=== PATIENT | male | born 1935 | race Caucasian/White ===

== ENCOUNTER 2017-08-01 16:48 | Emergency (ER) | payer OTHER ==
--- NOTE | 2017-08-01 16:54 | EDM.PDOC ---
ED HPI GENERAL MEDICAL PROBLEM - General Chief Complaint: General Stated Complaint: Fevers; cough; weakness Time Seen by Provider: 08/01/17 16:52 Source of Information: Reports: Patient, EMS Notes Reviewed, Family, RN, RN Notes Reviewed History Limitations: Reports: No Limitations - History of Present Illness INITIAL COMMENTS - FREE TEXT/NARRATIVE: Patient is brought to the ED at [facility] via EMS for fevers, weakness, and cough. Patient states his symptoms started a couple days ago. He did not want to come to the ED, but his family insisted. He states he has chronic SOB and UE tremors. He does not use a walker or cane. He states he is usually steady on his feet when he is well. He states he fall and hit his head a couple of weeks ago. He was not seen for this. He states his neck started to hurt a couple of hours ago. He has had a poor appetite for the past couple of days. He is incontinent of urine. Denies issues with BM's. He has not been drinking much. Patient denies any chest pain. Patient is normally seen at the [facility]. Will obtained records. Onset Date: 07/30/17 - Related Data Allergies Allergy/AdvReac Type Severity Reaction Status Date / Time No Known Allergies Allergy Verified 08/01/17 17:40 Home Meds: Home Meds Levothyroxine Sodium [Levoxyl] 0.5 tab PO DAILY 08/01/17 [History] Montelukast Sodium 10 mg PO DAILY 08/01/17 [History] Primidone 50 mg PO QID 08/01/17 [History] Propranolol HCl [Inderal LA] 60 mg PO DAILY 08/01/17 [History] Simvastatin 40 mg PO DAILY 08/01/17 [History] Topiramate 25 mg PO BID 08/01/17 [History] Warfarin Sodium 7.5 mg PO ASDIRECTED 08/01/17 [History] Warfarin [Coumadin] 10 mg PO ASDIRECTED 08/01/17 [History] glipiZIDE [Glucotrol] 10 mg PO BID 08/01/17 [History] metFORMIN HCl [Metformin HCl] 1,000 mg PO BID 08/01/17 [History] ED ROS GENERAL - Review of Systems Review Of Systems: See Below Constitutional: Reports: Fever, Weakness, Decreased Appetite. Denies: Chills HEENT: Reports: No Symptoms Respiratory: Reports: Shortness of Breath (chronic), Cough. Denies: Wheezing Cardiovascular: Denies: Chest Pain, Palpitations GI/Abdominal: Denies: Abdominal Pain, Nausea, Vomiting Musculoskeletal: Reports: Neck Pain Skin: Reports: No Symptoms Neurological: Reports: No Symptoms. Denies: Dizziness, Headache ED EXAM, GENERAL - Physical Exam Exam: See Below Exam Limited By: No Limitations General Appearance: Alert, No Apparent Distress, Cachetic Head: Atraumatic, Normocephalic Neck: Supple, Non-Tender Respiratory/Chest: No Respiratory Distress, Lungs Clear, Decreased Breath Sounds Cardiovascular: Normal Peripheral Pulses, Regular Rate, Rhythm Peripheral Pulses: 2+: Radial (L), Radial (R) GI/Abdominal: Soft, Non-Tender, Abnormal Bowel Sounds (Hypoactive) Neurological: Alert Skin Exam: Warm, Dry, Intact EKG INTERPRETATION EKG Date: 08/01/17 Time: 17:09 Rhythm: Other Rate (Beats/Min): 114 [place]: LAD-Left [place] Deviation P-Wave: Present QRS: Normal ST-T: Normal QT: Normal WA/PQ Interval: 0.18 Comparison: NA - No Prior EKG EKG Interpretation Comments: 1. Sinus Tachycardia 2. Borderline Left [place] deviation 3. Nonspecific T-wave abnormality Course - Vital Signs Last Recorded V/S: Last Vital Signs Temp 38.1 C 08/01/17 18:45 Pulse 110 H 08/01/17 19:00 Resp 16 08/01/17 19:00 BP 151/75 H 08/01/17 19:00 Pulse Ox 90 L 08/01/17 19:00 - Orders/Labs/Meds Orders: Active Orders 24 hr Category Date Time Status EKG 12 Lead [EKG Documentation Completion] [RC] STAT Care 08/01/17 16:55 Active Chest 1V Frontal [CR] Stat Exams 08/01/17 16:52 Taken CULTURE BLOOD [BC] Stat Lab 08/01/17 17:20 Received CULTURE BLOOD [BC] Stat Lab 08/01/17 17:26 Received UA W/MICROSCOPIC [URIN] Stat Lab 08/01/17 18:19 Ordered Lactated Ringers [Ringers, Lactated] 1,000 ml Med 08/01/17 18:34 Active IV ONETIME Sodium Chloride 0.9% [Saline Flush] Med 08/01/17 16:55 Active 10 ml FLUSH ASDIRECTED PRN Blood Culture x2 Reflex Set [OM.PC] Stat Oth 08/01/17 16:55 Ordered Peripheral IV Insertion Adult [OM.PC] Routine Oth 08/01/17 16:55 Ordered Medication Orders Lactated Ringer's (Ringers, Lactated) 1,000 mls @ 999 mls/hr IV ONETIME ONE Stop: 08/01/17 19:34 Last Admin: 08/01/17 18:41 Dose: 999 mls/hr Sodium Chloride (Saline Flush) 10 ml FLUSH ASDIRECTED PRN PRN Reason: Keep Vein Open Labs: Laboratory Tests 08/01/17 08/01/17 08/01/17 Range/Units 17:20 17:20 17:20 WBC 15.0 H (4.0-10.0) x10^3/uL RBC 4.86 (4.5-6.0) x10^6/uL Hgb 15.6 (14.0-18.0) g/dL Hct 46.8 (40.0-52.0) % MCV 96.3 H (78.0-93.0) fL MCH 32.1 H (26.0-32.0) pg MCHC 33.3 (32.0-36.0) g/dL RDW Coeff of Erik 15.0 (10.0-15.0) % Plt Count 324 (130-400) x10^3/uL Add Manual Diff Yes Neutrophils % (Manual) 60 (50-80) % Band Neutrophils % 5 (0-6) % Lymphocytes % (Manual) 22 L (25-50) % Monocytes % (Manual) 12 H (2-11) % Blast Cells % 1 H (0) % Platelet Estimate Adequate Sodium 133 L (136-145) mmol/L Potassium 4.3 (3.5-5.1) mmol/L Chloride 99 (98-107) mmol/L Carbon Dioxide 26 (21-32) mmol/L Anion Gap 12.3 BUN 17 (7-18) mg/dL Creatinine 1.4 H (0.70-1.30) mg/dL Est Cr Clr Drug Dosing TNP Estimated GFR (MDRD) 49 Glucose 155 H (74-106) mg/dL Lactic Acid 2.4 H* (0.4-2.0) mmol/L Calcium 8.9 (8.5-10.1) mg/dL Corrected Calcium 9.94 (8.5-10.1) mg/dL Magnesium 1.6 L (1.8-2.4) mg/dL Total Bilirubin 0.6 (0.2-1.0) mg/dL AST 24 (15-37) U/L ALT 29 (16-63) U/L Alkaline Phosphatase 151 H (46-116) U/L C-Reactive Protein 23.4 H (<=0.9) mg/dL Total Protein 7.7 (6.4-8.2) g/dL Albumin 2.7 L (3.4-5.0) g/dL Globulin 5.0 Albumin/Globulin Ratio 0.54 Urine Color (YELLOW) Urine Appearance (CLEAR) Urine pH (5.0-8.0) Ur Specific [place] Urine Protein (NEGATIVE) mg/dL Urine Glucose (UA) (NEGATIVE) mg/dL Urine Ketones (NEGATIVE) mg/dL Urine Occult Blood (NEGATIVE) Urine Nitrite (NEGATIVE) Urine Bilirubin (NEGATIVE) Urine Urobilinogen (0.2) EU/dL Ur Leukocyte Esterase (NEGATIVE) Urine RBC (NOT SEEN) /HPF Urine WBC (NOT SEEN) /HPF Ur Squamous Epith Cells (NEGATIVE) /HPF Amorphous Sediment Urine Bacteria (NEGATIVE) /HPF Hyaline Casts (NEGATIVE) /HPF Urine Mucus (NEGATIVE) /LPF 08/01/17 Range/Units 18:19 WBC (4.0-10.0) x10^3/uL RBC (4.5-6.0) x10^6/uL Hgb (14.0-18.0) g/dL Hct (40.0-52.0) % MCV (78.0-93.0) fL MCH (26.0-32.0) pg MCHC (32.0-36.0) g/dL RDW Coeff of Erik (10.0-15.0) % Plt Count (130-400) x10^3/uL Add Manual Diff Neutrophils % (Manual) (50-80) % Band Neutrophils % (0-6) % Lymphocytes % (Manual) (25-50) % Monocytes % (Manual) (2-11) % Blast Cells % (0) % Platelet Estimate Sodium (136-145) mmol/L Potassium (3.5-5.1) mmol/L Chloride (98-107) mmol/L Carbon Dioxide (21-32) mmol/L Anion Gap BUN (7-18) mg/dL Creatinine (0.70-1.30) mg/dL Est Cr Clr Drug Dosing Estimated GFR (MDRD) Glucose (74-106) mg/dL Lactic Acid (0.4-2.0) mmol/L Calcium (8.5-10.1) mg/dL Corrected Calcium (8.5-10.1) mg/dL Magnesium (1.8-2.4) mg/dL Total Bilirubin (0.2-1.0) mg/dL AST (15-37) U/L ALT (16-63) U/L Alkaline Phosphatase (46-116) U/L C-Reactive Protein (<=0.9) mg/dL Total Protein (6.4-8.2) g/dL Albumin (3.4-5.0) g/dL Globulin Albumin/Globulin Ratio Urine Color Dark yellow H (YELLOW) Urine Appearance Cloudy H (CLEAR) Urine pH 5.0 (5.0-8.0) Ur Specific [place] 1.020 Urine Protein 30 H (NEGATIVE) mg/dL Urine Glucose (UA) Negative (NEGATIVE) mg/dL Urine Ketones 15 H (NEGATIVE) mg/dL Urine Occult Blood Negative (NEGATIVE) Urine Nitrite Negative (NEGATIVE) Urine Bilirubin Small H (NEGATIVE) Urine Urobilinogen 0.2 (0.2) EU/dL Ur Leukocyte Esterase Negative (NEGATIVE) Urine RBC 0-5 (NOT SEEN) /HPF Urine WBC 0-5 (NOT SEEN) /HPF Ur Squamous Epith Cells Not seen (NEGATIVE) /HPF Amorphous Sediment Few Urine Bacteria Few H (NEGATIVE) /HPF Hyaline Casts Few H (NEGATIVE) /HPF Urine Mucus Many H (NEGATIVE) /LPF Meds: Medications Generic Name Dose Route Start Last Admin Trade Name Freq PRN Reason Stop Dose Admin Lactated Ringer's 1,000 mls @ 999 mls/hr 08/01/17 18:34 08/01/17 18:41 Ringers, Lactated IV 08/01/17 19:34 999 mls/hr ONETIME ONE Administration Sodium Chloride 10 ml 08/01/17 16:55 Saline Flush FLUSH ASDIRECTED PRN Keep Vein Open Discontinued Medications Generic Name Dose Route Start Last Admin Trade Name Vivian PRN Reason Stop Dose Admin Ceftriaxone Sodium 1 gm 08/01/17 18:33 08/01/17 18:41 Rocephin IVPUSH 08/01/17 18:34 1 gm ONETIME ONE Administration - Radiology Interpretation Free Text/Narrative:: CXR: No acute process - see scanned report in EMR - Re-Assessments/Exams Free Text/Narrative Re-Assessment/Exam: 08/01/17 18:36 Contacted [facility] regarding patient transfer. [place] Provider states he will have the 7pm provider call us back to get report on this patient Free Text/Narrative Re-Assessment/Exam: 08/01/17 19:19 Awaiting call back from [facility] Departure - Departure Time of Disposition: 19:28 Disposition: DC/Tfer to [facility] 02 Condition: Good Clinical Impression: Sepsis Qualifiers: Sepsis type: sepsis due to unspecified organism Qualified Code(s): A41.9 - Sepsis, unspecified organism - Discharge Information Forms: Interfacility Transfer [facility] ED Communication - ED Communication Date/Time Date: 08/01/17 Time Called: 19:27 - Discussed Case With (1) Discussed Case With (1): Admitting Provider (Dr. Lopez, Hospitalist, [facility]. Report given. Questions answered. Patient accepted in transfer. Patient will be sent via ALS ground.) - Problem List Review Problem List Initiated/Reviewed/Updated: Yes - My Orders Last 24 Hours: My Active Orders 08/01/17 16:52 Chest 1V Frontal [CR] Stat 08/01/17 16:55 EKG 12 Lead [EKG Documentation Completion] [RC] STAT Sodium Chloride 0.9% [Saline Flush] 10 ml FLUSH ASDIRECTED PRN Blood Culture x2 Reflex Set [OM.PC] Stat Peripheral IV Insertion Adult [OM.PC] Routine 08/01/17 17:20 CULTURE BLOOD [BC] Stat 08/01/17 17:26 CULTURE BLOOD [BC] Stat 08/01/17 18:19 UA W/MICROSCOPIC [URIN] Stat 08/01/17 18:34 Lactated Ringers [Ringers, Lactated] 1,000 ml IV ONETIME - Assessment/Plan Last 24 Hours: My Active Orders 08/01/17 16:52 Chest 1V Frontal [CR] Stat 08/01/17 16:55 EKG 12 Lead [EKG Documentation Completion] [RC] STAT Sodium Chloride 0.9% [Saline Flush] 10 ml FLUSH ASDIRECTED PRN Blood Culture x2 Reflex Set [OM.PC] Stat Peripheral IV Insertion Adult [OM.PC] Routine 08/01/17 17:20 CULTURE BLOOD [BC] Stat 08/01/17 17:26 CULTURE BLOOD [BC] Stat 08/01/17 18:19 UA W/MICROSCOPIC [URIN] Stat 08/01/17 18:34 Lactated Ringers [Ringers, Lactated] 1,000 ml IV ONETIME
[2017-08-01] MEDS ORDERED: Sodium Chloride 0.9% 10 ML Syringe FLUSH PRN (16:55)
[2017-08-01 18:00] LABS: CHLORIDE,CL 99 mmol/L (98-107); SODIUM,NA 133 mmol/L (136-145)
[2017-08-01] MEDS: cefTRIAXone 1 GM Vial IVPUSH ONE (18:41)
[2017-08-01] MEDS: Lactated Ringers 1,000 ML IV ONE (18:41)
[2017-08-01] MEDS: Sodium Chloride 0.9% 1,000 ML IV SCH (19:39)
== END 2017-08-01 19:57 | disposition short-term general hospital (02) ==
LOC: VM.ED 16:48
DX: A41.9 Sepsis, unspecified organism (principal); Z79.899 Other long term (current) drug therapy
CPT/HCPCS: 36415; 71045; 80053; 81001; 83605; 83735; 85025; 86140; 87040; 93005; 93010; 96361; 96374; 99285; 99285-GF; J0696; J7030; J7120

== ENCOUNTER 2018-11-04 22:25 | Emergency (ER) | payer OTHER ==
[2018-11-04] MEDS ORDERED: Acetaminophen 500 MG Tab ONE (22:57)
[2018-11-04] MEDS ORDERED: cefTRIAXone 1 GM Vial IVPUSH ONE (23:00)
--- NOTE | 2018-11-04 23:07 | EDM.PDOC ---
ED HPI GENERAL MEDICAL PROBLEM - General Chief Complaint: General Stated Complaint: FALL Time Seen by Provider: 11/04/18 22:50 Source of Information: Reports: Patient, EMS, Family History Limitations: Reports: No Limitations - History of Present Illness INITIAL COMMENTS - FREE TEXT/NARRATIVE: 83-year-old white male who is brought in by EMS from home status post fall patient states that he got up to go use the restroom and could not get up off the commode but apparently was able to walk to the kitchen where he fail and the found him leaning back up against the wall and blood all over the floor she states patient was alert talkative but could not get up sitting only been there just a few seconds prior to the fall patient denies hitting his head or LOC patient states he has not been feeling well for about the last 3-4 days and and has had a cough as well for the last couple days Patient denies any fever or chills nausea or vomiting chest pain shortness of breath lightheaded dizziness weakness in any one extremity just a little all over currently denies any headache vision changes or loss Patient is currently on Coumadin but does not know why nor does his Onset: Today, Sudden Duration: Minutes: - Related Data Allergies Allergy/AdvReac Type Severity Reaction Status Date / Time No Known Allergies Allergy Verified 08/01/17 17:40 Home Meds: Home Meds Levothyroxine Sodium [Levoxyl] 0.5 tab PO DAILY 08/01/17 [History] Montelukast Sodium 10 mg PO DAILY 08/01/17 [History] Primidone 50 mg PO QID 08/01/17 [History] Propranolol HCl [Inderal LA] 60 mg PO DAILY 08/01/17 [History] Simvastatin 40 mg PO DAILY 08/01/17 [History] Topiramate 25 mg PO BID 08/01/17 [History] Warfarin Sodium 7.5 mg PO ASDIRECTED 08/01/17 [History] Warfarin [Coumadin] 10 mg PO ASDIRECTED 08/01/17 [History] glipiZIDE [Glucotrol] 10 mg PO BID 08/01/17 [History] metFORMIN HCl [Metformin HCl] 1,000 mg PO BID 08/01/17 [History] Past Medical History Cardiovascular History: Reports: Blood Clots/VTE/DVT, Hypertension Endocrine/Metabolic History: Reports: Diabetes, Type II, Hypothyroidism ED ROS GENERAL - Review of Systems Review Of Systems: See Below Constitutional: Reports: Weakness, Fatigue. Denies: Fever, Chills, Malaise, Night Sweats, Diaphoresis, Decreased Appetite HEENT: Reports: No Symptoms Respiratory: Reports: No Symptoms Cardiovascular: Reports: No Symptoms Endocrine: Reports: No Symptoms, Fatigue GI/Abdominal: Reports: No Symptoms. Denies: Abdominal Pain, Black Stool, Bloody Stool, Hematemesis, Hematochezia, Melena, Nausea, Vomiting : Denies: No Symptoms, Discharge, Dysuria, Flank Pain, Frequency, Urgency Musculoskeletal: Reports: No Symptoms Skin: Reports: No Symptoms, Other (Patient has scattered superficial skin tears to the right forearm and elbow) Neurological: Reports: No Symptoms, Difficulty Walking. Denies: Confusion, Dizziness, Headache, Numbness, Pre-Existing Deficit, Seizure, Syncope, Tingling Psychiatric: Reports: No Symptoms Hematologic/Lymphatic: Reports: No Symptoms. 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 No: Facial Swelling, Facial Tenderness Neck: Normal Inspection, Supple, Non-Tender, Full Range of Motion, Other ( Negative nuchal rigidity) Respiratory/Chest: No Respiratory Distress, Lungs Clear, Normal Breath Sounds, No Accessory Muscle Use, Chest Non-Tender Cardiovascular: Normal Peripheral Pulses, Regular Rate, Rhythm, No Edema, No Gallop, No JVD, No Murmur, No Rub, Tachycardia GI/Abdominal: Normal Bowel Sounds, Soft, Non-Tender, No Organomegaly, No Distention. No: Distended, Guarding, Rigid, Rebound Back Exam: Normal Inspection. 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 No: Intact Course - Vital Signs Text/Narrative:: Vital signs were noted to be tachycardic and febrile sepsis protocol was followed EKG shows normal sinus rhythm with mild tachycardia rate of [address] elevation or depressions noted Urinalysis culture blood culture 2 lactic acid chest x-ray were ordered along with a CBC BMP patient was given 1 g of Tylenol by mouth 1 g Rocephin was ordered for prophylaxis CT head was ordered secondary to patient currently on Coumadin unknown reason a fall unknown if head injury states he is at his baseline and the patient does agree Patient is seen at the [facility] in [place] Patient has a white count of 18.9 thousand lactic acid of 3.9 chest x-ray no acute findings patient is not able to urinate so a Polanco catheter will be placed UA revealed negative nitrites and negative leukocytes positive protein [facility] will accept Last Recorded V/S: Last Vital Signs Temp 38.9 C H 11/04/18 23:10 Pulse 116 H 11/04/18 23:10 Resp 24 H 11/04/18 23:10 BP 133/71 11/04/18 23:10 Pulse Ox 87 L 11/04/18 23:10 - Orders/Labs/Meds Orders: Active Orders 24 hr Category Date Time Status EKG 12 Lead [EKG Documentation Completion] [RC] STAT Care 11/04/18 22:59 Active Chest 1V Frontal [CR] Stat Exams 11/04/18 23:00 Taken Head wo Cont [CT] Stat Exams 11/04/18 22:59 Taken CULTURE BLOOD [BC] Routine Lab 11/04/18 23:11 Received CULTURE BLOOD [BC] Stat Lab 11/04/18 23:02 Received Piperacillin/Tazobactam [Zosyn] 4.5 gm Med 11/05/18 00:27 Ordered Sodium Chloride 0.9% [Normal Saline] 100 ml IV STAT Medication Orders Piperacillin Sod/Tazobactam (Sod 4.5 gm/ Sodium Chloride) 100 mls @ 200 mls/hr IV STAT ONE Stop: 11/05/18 00:56 Labs: Laboratory Tests 11/04/18 11/04/18 11/04/18 Range/Units 23:02 23:02 23:02 WBC 18.1 H (4.0-10.0) x10^3/uL RBC 4.60 (4.5-6.0) x10^6/uL Hgb 14.9 (14.0-18.0) g/dL Hct 43.9 (40.0-52.0) % MCV 95.4 H (78.0-93.0) fL MCH 32.4 H (26.0-32.0) pg MCHC 33.9 (32.0-36.0) g/dL RDW Coeff of Erik 13.0 (10.0-15.0) % Plt Count 193 D (130-400) x10^3/uL Neut % (Auto) 79.8 (50.0-80.0) % Lymph % (Auto) 7.8 L (25.0-50.0) % Rich % (Auto) 11.7 H (2.0-11.0) % Eos % (Auto) 0.4 (0.0-4.0) % Baso % (Auto) 0.3 (0.2-1.2) % PT 23.4 H (10.0-12.8) SEC INR 2.1 (2.0-3.5) Sodium 140 (136-145) mmol/L Potassium 4.4 (3.5-5.1) mmol/L Chloride 103 (98-107) mmol/L Carbon Dioxide 24 (21-32) mmol/L Anion Gap 17.4 (10-20) mmol/L BUN 21 H (7-18) mg/dL Creatinine 1.5 H (0.70-1.30) mg/dL Est Cr Clr Drug Dosing 38.53 mL/min Estimated GFR (MDRD) 45 Glucose 236 H (74-106) mg/dL Lactic Acid (0.4-2.0) mmol/L Calcium 9.0 (8.5-10.1) mg/dL Urine Color (YELLOW) Urine Appearance (CLEAR) Urine pH (5.0-8.0) Ur Specific [place] Urine Protein (NEGATIVE) mg/dL Urine Glucose (UA) (NEGATIVE) mg/dL Urine Ketones (NEGATIVE) mg/dL Urine Occult Blood (NEGATIVE) Urine Nitrite (NEGATIVE) Urine Bilirubin (NEGATIVE) Urine Urobilinogen (0.2) EU/dL Ur Leukocyte Esterase (NEGATIVE) Urine RBC (NOT SEEN) /HPF Urine WBC (NOT SEEN) /HPF Ur Squamous Epith Cells (NEGATIVE) /HPF Urine Bacteria (NEGATIVE) /HPF Hyaline Casts (NEGATIVE) /HPF Urine Mucus (NEGATIVE) /LPF 11/04/18 11/05/18 Range/Units 23:02 00:14 WBC (4.0-10.0) x10^3/uL RBC (4.5-6.0) x10^6/uL Hgb (14.0-18.0) g/dL Hct (40.0-52.0) % MCV (78.0-93.0) fL MCH (26.0-32.0) pg MCHC (32.0-36.0) g/dL RDW Coeff of Erik (10.0-15.0) % Plt Count (130-400) x10^3/uL Neut % (Auto) (50.0-80.0) % Lymph % (Auto) (25.0-50.0) % Rich % (Auto) (2.0-11.0) % Eos % (Auto) (0.0-4.0) % Baso % (Auto) (0.2-1.2) % PT (10.0-12.8) SEC INR (2.0-3.5) Sodium (136-145) mmol/L Potassium (3.5-5.1) mmol/L Chloride (98-107) mmol/L Carbon Dioxide (21-32) mmol/L Anion Gap (10-20) mmol/L BUN (7-18) mg/dL Creatinine (0.70-1.30) mg/dL Est Cr Clr Drug Dosing mL/min Estimated GFR (MDRD) Glucose (74-106) mg/dL Lactic Acid 3.9 H* (0.4-2.0) mmol/L Calcium (8.5-10.1) mg/dL Urine Color Dark yellow H (YELLOW) Urine Appearance Clear (CLEAR) Urine pH 5.5 (5.0-8.0) Ur Specific [place] 1.020 Urine Protein 30 H (NEGATIVE) mg/dL Urine Glucose (UA) Negative (NEGATIVE) mg/dL Urine Ketones 15 H (NEGATIVE) mg/dL Urine Occult Blood Negative (NEGATIVE) Urine Nitrite Negative (NEGATIVE) Urine Bilirubin Small H (NEGATIVE) Urine Urobilinogen 1.0 (0.2) EU/dL Ur Leukocyte Esterase Negative (NEGATIVE) Urine RBC Not seen (NOT SEEN) /HPF Urine WBC 0-5 (NOT SEEN) /HPF Ur Squamous Epith Cells Rare (NEGATIVE) /HPF Urine Bacteria Not seen (NEGATIVE) /HPF Hyaline Casts Few H (NEGATIVE) /HPF Urine Mucus Moderate H (NEGATIVE) /LPF Meds: Medications Generic Name Dose Route Start Last Admin Trade Name Freq PRN Reason Stop Dose Admin Piperacillin Sod/Tazobactam 100 mls @ 200 mls/hr 11/05/18 00:27 Sod 4.5 gm/ Sodium Chloride IV 11/05/18 00:56 STAT ONE Discontinued Medications Generic Name Dose Route Start Last Admin Trade Name Freq PRN Reason Stop Dose Admin Acetaminophen Confirm 11/04/18 22:57 11/04/18 22:55 Tylenol Extra Strength Administered 11/04/18 22:58 1,000 mg Dose Administration 1,000 mg .ROUTE .STK-MED ONE Ceftriaxone Sodium 1 gm 11/04/18 23:00 11/04/18 23:14 Rocephin IVPUSH 11/04/18 23:01 1 gm STAT ONE Administration Departure - Departure Time of Disposition: 00:50 Disposition: DC/Tfer to Acute Hospital 02 Condition: Good Clinical Impression: Fever of unknown origin (FUO) Sepsis Qualifiers: Sepsis type: sepsis due to unspecified organism Qualified Code(s): A41.9 - Sepsis, unspecified organism - Discharge Information Referrals: Vida Willis PA-C [Primary Care Provider] - Forms: ED Department Discharge - Problem List & Annotations (1) Sepsis SNOMED Code(s): 21500834 Code(s): A41.9 - SEPSIS, UNSPECIFIED ORGANISM Status: Acute Current Visit : Yes Qualifiers: Sepsis type: sepsis due to unspecified organism Qualified Code(s): A41.9 - Sepsis, unspecified organism (2) Fever of unknown origin (FUO) SNOMED Code(s): 5482503 Code(s): R50.9 - FEVER, UNSPECIFIED Status: Acute Current Visit: Yes - My Orders Last 24 Hours: My Active Orders 11/04/18 22:59 EKG 12 Lead [EKG Documentation Completion] [RC] STAT Head wo Cont [CT] Stat 11/04/18 23:00 Chest 1V Frontal [CR] Stat 11/04/18 23:02 CULTURE BLOOD [BC] Stat 11/04/18 23:11 CULTURE BLOOD [BC] Routine 11/05/18 00:27 Piperacillin/Tazobactam [Zosyn] 4.5 gm Sodium Chloride 0.9% [Normal Saline] 100 ml IV STAT - Assessment/Plan Last 24 Hours: My Active Orders 11/04/18 22:59 EKG 12 Lead [EKG Documentation Completion] [RC] STAT Head wo Cont [CT] Stat 11/04/18 23:00 Chest 1V Frontal [CR] Stat 11/04/18 23:02 CULTURE BLOOD [BC] Stat 11/04/18 23:11 CULTURE BLOOD [BC] Routine 11/05/18 00:27 Piperacillin/Tazobactam [Zosyn] 4.5 gm Sodium Chloride 0.9% [Normal Saline] 100 ml IV STAT
[2018-11-04 23:37] LABS: ANION GAP 17.4 mmol/L (10-20)
[2018-11-05] MEDS ORDERED: Piperacillin/Tazobactam 4.5 GM in Sodium Chloride 0.9% 100 ML IV ONE (00:27)
--- NOTE | 2018-11-05 08:20 | CR ---
[id number] RAD/RAD Chest PA or AP 1V EXAM: SINGLE VIEW CHEST. INDICATION: FEVER COMPARISON: CORRELATION IS MADE WITH THE EXAM OF AUGUST 01, 2017. FINDINGS: The lungs are clear. The cardiomediastinal contour is stable. There is no fracture of the left clavicle. IMPRESSION: NO PNEUMONIA. David Echevarria MD 11/05/18 0819 Thank you for allowing us to participate in the care of your patient.
--- NOTE | 2018-11-05 08:21 | CT ---
[id number] CT/CT Head WO IV EXAM: CT Head WO IV CLINICAL DATA: TRAUMA. ANTICOAGULATED PATIENT COMPARISON: NO PREVIOUS SIMILAR EXAM IS AVAILABLE FOR COMPARISON. FINDINGS: There is significant motion artifact. There is no mass or mass effect. There is no hemorrhage or hydrocephalus. There are no extra-axial fluid collections. There are no sites of abnormal attenuation. IMPRESSION: No obvious intracranial hemorrhage. Consider follow-up study. David Echevarria MD 11/05/18 0820 Thank you for allowing us to participate in the care of your patient.
== END 2018-11-05 02:10 | disposition short-term general hospital (02) ==
LOC: VM.ED 22:25
DX: A41.9 Sepsis, unspecified organism (principal); S51.011A Laceration without foreign body of right elbow, initial encounter; E11.9 Type 2 diabetes mellitus without complications; E03.9 Hypothyroidism, unspecified; W22.01XA Walked into wall, initial encounter; Z79.899 Other long term (current) drug therapy
CPT/HCPCS: 36415; 51702; 70450; 71045; 80048; 81001; 83605; 85025; 85610; 87040; 93005; 96365; 96367; 96375; 99284; 99285; A9270; J0696; J2543; J7050

== ENCOUNTER 2020-07-07 15:27 | Inpatient (IN) | payer OTHER, MEDICARE ==
[2020-07-07] MEDS ORDERED: Ondansetron 4 MG Tab.DIS PO PRN (15:44)
--- NOTE | 2020-07-07 16:06 | PCM.HP.2 ---
H&P History of Present Illness - General Date of Service: 07/07/20 Admit Problem/Dx: Admission Diagnosis/Problem Admission Diagnosis/Problem Weakness - History of Present Illness Initial Comments - Free Text/Narative: Shanita Montoya is a 85yr malewith past medical history of Prostate cancer, BPH, type 2 diabetes, essential hypertension, hyperlipidemia, mild persistent asthma, chronic bronchitis, hypothyroidism, Parkinson's disease with essential tremor, and DVT on chronic anticoagulation and who presented to the clinic today forincreased confusion and incontinence. We received a fax from the retirement 2 days ago about- some increased urinary frequency and incontinence; we did run a urinalysis on him and this was negative for UTI however he did have elevated glucose in the urine. Staff reported that his fasting glucose 2 days ago was 105 and this morning was 250.He has also had a considerable number of falls over the last 4-5 days which is very out of character for him. Decision was made for him to come in and be evaluated in person. T 100.6, BP 100/56, P 97, O2 91%. Laboratory evaluation was completed prior to the appointment today and is notable for a leukocytosis of 17 with a le ft shift. CMP did demonstrate a glucose of 305, creatinine of 1.65, normal liver enzymes as well as electrolytes. When asked about his symptomsShanita doesn't have much to say other than "I started feeling poor a few days ago, I don't know what's wrong."He is very worried about the level of weakness as well as multiple falls that he has had. When going through a 12 system review of systems the only concern that he has is a runny and stuffy nose, mild sore throat as well as the urinary frequency and weakness.He denies any and all other symptoms. No source of infection could be found on clinical examination. He was very weak and drowsy in the office so decision was made to admit him to the hospital for further workup. - Related Data Allergies/Adverse Reactions: Allergies Allergy/AdvReac Type Severity Reaction Status Date / Time No Known Allergies Allergy Verified 08/01/17 17:40 Home Medications: Home Meds Levothyroxine Sodium [Levoxyl] 0.5 tab PO DAILY 08/01/17 [History] Montelukast Sodium 10 mg PO BEDTIME 08/01/17 [History] Primidone 150 mg PO BID 08/01/17 [History] Propranolol HCl [Inderal LA] 60 mg PO BID 08/01/17 [History] Simvastatin 40 mg PO BEDTIME 08/01/17 [History] Warfarin [Coumadin] 10 mg PO ASDIRECTED 08/01/17 [History] glipiZIDE [Glucotrol] 10 mg PO BID 08/01/17 [History] metFORMIN HCl [Metformin HCl] 1,000 mg PO DAILY 08/01/17 [History] Albuterol [Ventolin HFA] 2 puff INH Q6H PRN 11/05/18 [History] Budesonide [Pulmicort] 2 ml INH BID 11/05/18 [History] Chlorthalidone 0.5 tab PO DAILY 11/05/18 [History] Cholecalciferol (Vitamin D3) [Vitamin D3] 2 tab PO DAILY 11/05/18 [History] Doxycycline Hyclate 1 tab PO Q12H 11/05/18 [History] Insulin Glargine,Hum.Rec.Anlog [Lantus Solostar] 40 unit SQ BEDTIME 11/05/18 [History] predniSONE [Prednisone] 20 mg PO DAILY 11/05/18 [History] Past Medical History Cardiovascular History: Reports: Blood Clots/VTE/DVT, Hypertension Respiratory History: Reports: Asthma, Bronchitis, Recurrent Genitourinary History: Reports: BPH, Prostate Disorder (prostate cancer) Neurological History: Reports: Other (See Below) (Parkinsons with essential tremor) Endocrine/Metabolic History: Reports: Diabetes, Type II, Hypothyroidism Social & Family History - Family History Family Medical History: No Pertinent Family History - Caffeine Use Caffeine Use: Reports: None H&P Review of Systems - Review of Systems: Review Of Systems: See Below General: Reports: Fever, Weakness, Fatigue HEENT: Reports: Rhinitis, Sinus Congestion, Sore Throat Pulmonary: Reports: No Symptoms Cardiovascular: Reports: No Symptoms Gastrointestinal: Reports: No Symptoms Genitourinary: Reports: Frequency, Urgency Musculoskeletal: Reports: No Symptoms Skin: Reports: Bruising Psychiatric: Reports: No Symptoms Neurological: Reports: Weakness Hematologic/Lymphatic: Reports: Easy Bruising Exam - Exam Exam: See Below - Vital Signs Vital Signs: Last Vital Signs Temp 97.7 F 07/07/20 15:55 Pulse 94 07/07/20 15:55 Resp BP 156/91 H 07/07/20 15:55 Pulse Ox 93 L 07/07/20 15:55 Weight: 213 lb 4.8 oz - Exam General: Alert, Oriented, Mild Distress HEENT: Conjunctiva Clear, EOMI, Mucosa Moist & [place], Nares Patent, Posterior Pharynx Clear, TMs Clear Neck: Supple, Trachea Midline Lungs: Clear to Auscultation, Normal Respiratory Effort Cardiovascular: Regular Rate, Regular Rhythm GI/Abdominal Exam: Normal Bowel Sounds, Soft, Tender (Epigastric, RUQ - limited as exam in WC) Back Exam: Normal Inspection, Other (no sacral ulcers noted) Extremities: Normal Inspection, Non-Tender, No Pedal Edema Peripheral Pulses: 1+: Dorsalis Pedis (L), Dorsalis Pedis (R), 2+: Radial (L) Skin: Warm, Dry, Intact, Ecchymosis Neurological: Cranial Nerves Intact Neuro Extensive - Mental Status: Alert, Oriented x3 Neuro Extensive - Motor, Sensory, Reflexes: Tremor, Other (gross weakness noted on exam, could hardly stand with an assiste of 2 in the office) Psychiatric: Alert Sepsis Event Note - Focused Exam Vital Signs: Vital Signs Temp Pulse BP Pulse Ox 07/07/20 15:55 97.7 F 94 156/91 H 93 L *Q Meaningful Use (ADM) - VTE *Q VTE Pharmacological Contraindications *Q: Risk of Bleeding - Problem List (1) Sepsis SNOMED Code(s): 32669956 ICD Code: A41.9 - SEPSIS, UNSPECIFIED ORGANISM Status: Acute Current Visit: No Qualifiers: Sepsis type: sepsis due to unspecified organism Qualified Code(s): A41.9 - Sepsis, unspecified organism (2) Fever of unknown origin (FUO) SNOMED Code(s): 8142366 ICD Code: R50.9 - FEVER, UNSPECIFIED Status: Acute Current Visit: No (3) Weakness SNOMED Code(s): 19597593 ICD Code: R53.1 - WEAKNESS Status: Acute Current Visit: Yes (4) Confusion SNOMED Code(s): 715260409 ICD Code: R41.0 - DISORIENTATION, UNSPECIFIED Status: Acute Current Visit: Yes Problem List Initiated/Reviewed/Updated: Yes Orders Last 24hrs: Active Orders 24 hr Category Date Time Status Patient Status [ADT] Routine ADT 07/07/20 15:44 Active Blood Glucose Check, Bedside [RC] TIDMEALS Care 07/07/20 15:44 Active Oxygen Therapy [RC] PRN Care 07/07/20 15:44 Active Pulse Oximetry [RC] CONTINUOUS Care 07/07/20 15:46 Active Up With Assistance [RC] ASDIRECTED Care 07/07/20 15:44 Active Vital Signs [RC] Q4H Care 07/07/20 15:44 Active PT Evaluation and Treatment [CONS] Routine Cons 07/07/20 15:51 Active Nothing per Oral Now Diet [DIET] Diet 07/07/20 Dinner Active CTA Abd Pelv w wo Cont [CT] Urgent Exams 07/07/20 15:50 Stop Req Chest 1V Frontal [CR] Stat Exams 07/07/20 15:44 Ordered BASIC METABOLIC PANEL,BMP [CHEM] DAILY Lab 07/08/20 06:00 Ordered CBC WITH AUTO DIFF [HEME] DAILY Lab 07/08/20 06:00 Ordered CULTURE BLOOD [BC] Stat Lab 07/07/20 15:49 Ordered CULTURE BLOOD [BC] Stat Lab 07/07/20 15:49 Ordered Acetaminophen [TylenoL] Med 07/07/20 15:44 Active 650 mg PO Q4H PRN Ondansetron [Zofran ODT] Med 07/07/20 15:44 Active 4 mg PO Q4H PRN Blood Culture x2 Reflex Set [OM.PC] Stat Oth 07/07/20 15:44 Ordered VTE Pharmacological Contraindications [AST] Per Unit Oth 07/07/20 15:44 Ordered Routine Resuscitation Status Routine Resus Stat 07/07/20 15:44 Ordered Medication Orders Acetaminophen (Acetaminophen 325 Mg Tab) 650 mg PO Q4H PRN PRN Reason: Pain (Mild 1-3)/fever Ondansetron HCl (Ondansetron 4 Mg Tab.Dis) 4 mg PO Q4H PRN PRN Reason: nausea, able to take PO Assessment/Plan Comment:: Sepsis Fever (of Unknown Origin in a non-neutropenic) Leukocytosis Weakness and confusion - Patient with mental and physical depression from previous baseline - Fever of 100.6 at the clinic with Leukocytosis of 17.4 with a left shift - Urinalysis on 07/05 negative for UTI - Mild abdominal tenderness on exam however no clear-cut reason for fever and leukocytosis Plan: - Admit to inpatient for further evaluation - Blood Cultures - Lactic Acid - CXR and CT abdomen/pelvis - CBC and BMP in the am - IV: NS at 125/hr, will give bump if LA elevated - After blood culture drawn will start broad spectrum antibiotics: Vanco and Zosyn - PT for weakness Chronic: -T2DM -Bronchitis, Asthma -Hx DVT -HLD -HTN -Hypothyroid *Meds not loaded at time of note, will need to reconcile later as we do not have a current NH list* Diet: NPO for now (until scan completed/reviewed, if ok can switch to diabetic) DVT: patient on coumadin chronically IVF: NS @125 for now Disposition: Patient admitted for further evaluation of fever, leukocytosis, and weakness with a sepsis picture. - Mortality Measure Prognosis:: Good
[2020-07-07] MEDS ORDERED: Piperacillin/Tazobactam 4.5 GM in Sodium Chloride 0.9% 100 ML IV SCH (16:30)
[2020-07-07] MEDS ORDERED: Albuterol 0.083% 2.5 MG/3 ML Neb Soln NEB PRN (16:57)
[2020-07-07] MEDS ORDERED: Albuterol HFA 18 Gm Inhaler INH PRN (16:57)
[2020-07-07] MEDS ORDERED: Piperacillin/Tazobactam 4.5 GM in Sodium Chloride 0.9% 100 ML IV ONE (17:00)
[2020-07-07] MEDS: Sodium Chloride 0.9% 1,000 ML IV SCH (17:55)
[2020-07-07] MEDS: Acetaminophen 325 MG Tab PO PRN (19:17)
[2020-07-07] MEDS: Budesonide 0.5 MG/2 ML Neb Susp INH SCH (19:17)
[2020-07-07] MEDS: Primidone 50 MG Tab PO SCH (19:18)
[2020-07-07] MEDS: Simvastatin 40 MG Tab PO SCH (19:18)
[2020-07-07] MEDS: Montelukast 10 MG Tab PO SCH (19:18)
[2020-07-07] MEDS: Insulin Glarg,Human.Rec.Analog 100 Unit/ML SUBCUT SCH (19:21)
--- NOTE | 2020-07-07 20:46 | CT ---
[id number] CT/CT Abdomen Pelvis WO IV Exam: CT Abdomen Pelvis WO IV Clinical Data: FEVER OF UNKNOWN ORIGIN COMPARISON: NO PREVIOUS SIMILAR EXAM IS AVAILABLE FINDINGS: A minimal infiltrate is seen at the right lung base The pelvis shows no mass or adenopathy There is no bowel distention or bowel wall thickening There is no hydronephrosis or obvious renal mass There is no adenopathy or aneurysm The liver and spleen show no focal abnormalities The left lobe of the liver is somewhat prominent Lack of IV contrast limits the study There is motion artifact IMPRESSION: NO ABNORMALITY SEEN TO EXPLAIN FEVER OF UNKNOWN ORIGIN David Echevarria MD 07/07/202044 Thank you for allowing us to participate in the care of your patient.
--- NOTE | 2020-07-07 20:47 | CR ---
[id number] RAD/RAD Chest PA or AP 1V EXAM: SINGLE VIEW CHEST. INDICATION: FEVER OF UNKNOWN ORIGIN COMPARISON: CORRELATION IS MADE WITH NOVEMBER 04, 2018 FINDINGS: The lungs are clear The cardiomediastinal contour is stable There are mild bibasilar hypoventilatory changes There is an old left clavicular fracture IMPRESSION: NO ACUTE PROCESS OBVIOUS David Echevarria MD 07/07/202045 Thank you for allowing us to participate in the care of your patient.
[2020-07-07] MEDS ORDERED: Sodium Chloride 0.9% 500 ML IV ONE (20:58)
--- NOTE | 2020-07-07 21:05 | PCM.SN.2 ---
- Free Text/Narrative Note: Initial lactic acid was high. IV fluids started and was still high on repeat. Therefore, will give 500 cc bolus and then continue at 125 cc/hr. CT abdomen/pelvis negative for intra-abdominal findings but he has a RLL infiltrate. Therefore, will treat as pneumonia, possibly aspiration. Will d/c vancomycin and continue zosyn only. Labs ordered for the morning.
[2020-07-08] MEDS: Piperacillin/Tazobactam 3.375 GM in Sodium Chloride 0.9% 100 ML IV SCH ×3 (00:13→17:12)
[2020-07-08] MEDS: Sodium Chloride 0.9% 1,000 ML IV SCH ×2 (00:19→17:13)
[2020-07-08] MEDS: Levothyroxine 25 MCG Tab PO SCH (06:06)
[2020-07-08] MEDS ORDERED: Levothyroxine 25 MCG Tab PO SCH (07:00)
[2020-07-08] MEDS: Budesonide 0.5 MG/2 ML Neb Susp INH SCH ×2 (07:41→20:05)
--- NOTE | 2020-07-08 08:26 | PCM.PN ---
- General Info Date of Service: 07/08/20 Admission Dx/Problem (Free Text): Admission Diagnosis/Problem Admission Diagnosis/Problem Weakness Functional Status: Reports: Pain Controlled - Review of Systems General: Reports: No Symptoms HEENT: Reports: No Symptoms Pulmonary: Reports: No Symptoms Cardiovascular: Reports: No Symptoms Gastrointestinal: Reports: No Symptoms Genitourinary: Reports: No Symptoms Musculoskeletal: Reports: No Symptoms Skin: Reports: No Symptoms Neurological: Reports: No Symptoms Psychiatric: Reports: No Symptoms - Patient Data Vitals - Most Recent: Last Vital Signs Temp 36.6 C 07/08/20 05:56 Pulse 82 07/08/20 05:56 Resp 20 07/08/20 05:56 BP 129/82 07/08/20 05:56 Pulse Ox 97 07/08/20 07:41 Weight - Most Recent: 97.296 kg I&O - Last 24 Hours: Intake & Output 07/07/20 07/08/20 07/08/20 22:59 06:59 14:59 Intake Total 0 1475 Output Total 250 500 Balance -250 975 Lab Results Last 24 Hours: Laboratory Results - last 24 hr 07/07/20 07/07/20 07/07/20 Range/Units 15:40 16:47 16:54 WBC (4.0-10.0) x10^3/uL RBC (4.5-6.0) x10^6/uL Hgb (14.0-18.0) g/dL Hct (40.0-52.0) % MCV (78.0-93.0) fL MCH (26.0-32.0) pg MCHC (32.0-36.0) g/dL RDW Coeff of Erik (10.0-15.0) % Plt Count (130-400) x10^3/uL Add Manual Diff Neutrophils % (Manual) (50-80) % Lymphocytes % (Manual) (25-50) % Monocytes % (Manual) (2-11) % Eosinophils % (Manual) (0-4) % Platelet Estimate Sodium (136-145) mmol/L Potassium (3.5-5.1) mmol/L Chloride (98-107) mmol/L Carbon Dioxide (21-32) mmol/L Anion Gap (5-15) mmol/L BUN (7-18) mg/dL Creatinine (0.70-1.30) mg/dL Est Cr Clr Drug Dosing mL/min Estimated GFR (MDRD) Glucose (74-106) mg/dL POC Glucose 261 H (74-106) mg/dL Lactic Acid 4.1 H* (0.4-2.0) mmol/L Calcium (8.5-10.1) mg/dL C-Reactive Protein (<=0.9) mg/dL SARS CoV-2 RNA Rapid GWEN Negative (NEGATIVE) 07/07/20 07/07/20 07/07/20 Range/Units 19:21 20:05 20:05 WBC (4.0-10.0) x10^3/uL RBC (4.5-6.0) x10^6/uL Hgb (14.0-18.0) g/dL Hct (40.0-52.0) % MCV (78.0-93.0) fL MCH (26.0-32.0) pg MCHC (32.0-36.0) g/dL RDW Coeff of Erik (10.0-15.0) % Plt Count (130-400) x10^3/uL Add Manual Diff Neutrophils % (Manual) (50-80) % Lymphocytes % (Manual) (25-50) % Monocytes % (Manual) (2-11) % Eosinophils % (Manual) (0-4) % Platelet Estimate Sodium (136-145) mmol/L Potassium (3.5-5.1) mmol/L Chloride (98-107) mmol/L Carbon Dioxide (21-32) mmol/L Anion Gap (5-15) mmol/L BUN (7-18) mg/dL Creatinine (0.70-1.30) mg/dL Est Cr Clr Drug Dosing mL/min Estimated GFR (MDRD) Glucose (74-106) mg/dL POC Glucose 345 H (74-106) mg/dL Lactic Acid 3.8 H* (0.4-2.0) mmol/L Calcium (8.5-10.1) mg/dL C-Reactive Protein 24.1 H (<=0.9) mg/dL SARS CoV-2 RNA Rapid GWEN (NEGATIVE) 07/08/20 07/08/20 07/08/20 Range/Units 05:27 06:40 06:40 WBC 11.5 H (4.0-10.0) x10^3/uL RBC 4.03 L (4.5-6.0) x10^6/uL Hgb 12.9 L D (14.0-18.0) g/dL Hct 39.9 L (40.0-52.0) % MCV 99.0 H D (78.0-93.0) fL MCH 32.0 (26.0-32.0) pg MCHC 32.3 (32.0-36.0) g/dL RDW Coeff of Erik 14.0 (10.0-15.0) % Plt Count 157 (130-400) x10^3/uL Add Manual Diff Yes Neutrophils % (Manual) 72 (50-80) % Lymphocytes % (Manual) 14 L (25-50) % Monocytes % (Manual) 12 H (2-11) % Eosinophils % (Manual) 2 (0-4) % Platelet Estimate Adequate Sodium 143 (136-145) mmol/L Potassium 4.0 (3.5-5.1) mmol/L Chloride 107 (98-107) mmol/L Carbon Dioxide 28 (21-32) mmol/L Anion Gap 12.0 (5-15) mmol/L BUN 36 H (7-18) mg/dL Creatinine 1.9 H (0.70-1.30) mg/dL Est Cr Clr Drug Dosing 21.21 mL/min Estimated GFR (MDRD) 34 Glucose 186 H (74-106) mg/dL POC Glucose 166 H (74-106) mg/dL Lactic Acid (0.4-2.0) mmol/L Calcium 8.7 (8.5-10.1) mg/dL C-Reactive Protein (<=0.9) mg/dL SARS CoV-2 RNA Rapid GWEN (NEGATIVE) 07/08/20 Range/Units 06:40 WBC (4.0-10.0) x10^3/uL RBC (4.5-6.0) x10^6/uL Hgb (14.0-18.0) g/dL Hct (40.0-52.0) % MCV (78.0-93.0) fL MCH (26.0-32.0) pg MCHC (32.0-36.0) g/dL RDW Coeff of Erik (10.0-15.0) % Plt Count (130-400) x10^3/uL Add Manual Diff Neutrophils % (Manual) (50-80) % Lymphocytes % (Manual) (25-50) % Monocytes % (Manual) (2-11) % Eosinophils % (Manual) (0-4) % Platelet Estimate Sodium (136-145) mmol/L Potassium (3.5-5.1) mmol/L Chloride (98-107) mmol/L Carbon Dioxide (21-32) mmol/L Anion Gap (5-15) mmol/L BUN (7-18) mg/dL Creatinine (0.70-1.30) mg/dL Est Cr Clr Drug Dosing mL/min Estimated GFR (MDRD) Glucose (74-106) mg/dL POC Glucose (74-106) mg/dL Lactic Acid 2.2 H* (0.4-2.0) mmol/L Calcium (8.5-10.1) mg/dL C-Reactive Protein (<=0.9) mg/dL SARS CoV-2 RNA Rapid GWEN (NEGATIVE) Prateek Results Last 24 Hours: Microbiology 07/07/20 16:59 Anaerobic Blood Culture - Final Blood - Venous - Lab Draw Med Orders - Current: Current Medications Acetaminophen (Acetaminophen 325 Mg Tab) 650 mg PO Q4H PRN PRN Reason: Pain (Mild 1-3)/fever Last Admin: 07/07/20 19:17 Dose: 650 mg Documented by: Albuterol (Albuterol 0.083% 2.5 Mg/3 Ml Neb Soln) 2.5 mg NEB QID PRN PRN Reason: Shortness of Breath Albuterol (Albuterol Hfa 18 Gm Inhaler) 0 gm INH QID PRN PRN Reason: Shortness of Breath Budesonide (Budesonide 0.5 Mg/2 Ml Neb Susp) 0.5 mg INH BID FLOR Last Admin: 07/08/20 07:41 Dose: 0.5 mg Documented by: Cholecalciferol (Cholecalciferol (Vitamin D3) 25 Mcg Tab) 50 mcg PO DAILY FLOR Sodium Chloride (Normal Saline) 1,000 mls @ 125 mls/hr IV ASDIRECTED FLOR Last Admin: 07/08/20 00:19 Dose: 125 mls/hr Documented by: Piperacillin Sod/Tazobactam (Sod 3.375 gm/ Sodium Chloride) 100 mls @ 25 mls/hr IV Q8H [facility] Last Admin: 07/08/20 00:13 Dose: 25 mls/hr Documented by: Insulin Glargine (Insulin Glarg,Human.Rec.Analog 100 Unit/Ml) 73 unit SUBCUT BEDTIME [facility] Last Admin: 07/07/20 19:21 Dose: 73 units Documented by: Levothyroxine Sodium (Levothyroxine 25 Mcg Tab) 12.5 mcg PO ACBREAKFAST [facility] Last Admin: 07/08/20 06:06 Dose: 12.5 mcg Documented by: Montelukast Sodium (Montelukast 10 Mg Tab) 10 mg PO BEDTIME [facility] Last Admin: 07/07/20 19:18 Dose: 10 mg Documented by: Ondansetron HCl (Ondansetron 4 Mg Tab.Dis) 4 mg PO Q4H PRN PRN Reason: nausea, able to take PO Primidone (Primidone 50 Mg Tab) 150 mg PO TID [facility] Last Admin: 07/07/20 19:18 Dose: 150 mg Documented by: Simvastatin (Simvastatin 40 Mg Tab) 40 mg PO BEDTIME [facility] Last Admin: 07/07/20 19:18 Dose: 40 mg Documented by: Discontinued Medications Vancomycin HCl 1 gm/ Sodium (Chloride) 250 mls @ 250 mls/hr IV Q24H [facility] Piperacillin Sod/Tazobactam (Sod 4.5 gm/ Sodium Chloride) 100 mls @ 25 mls/hr IV Q8H [facility] Last Admin: 07/07/20 17:58 Dose: Not Given Documented by: Piperacillin Sod/Tazobactam (Sod 4.5 gm/ Sodium Chloride) 100 mls @ 200 mls/hr IV ONETIME ONE Stop: 07/07/20 17:29 Last Admin: 07/07/20 17:15 Dose: 200 mls/hr Documented by: Vancomycin HCl 1 gm/ Sodium (Chloride) 250 mls @ 250 mls/hr IV ONETIME ONE Stop: 07/07/20 18:59 Last Admin: 07/07/20 18:29 Dose: 250 mls/hr Documented by: Sodium Chloride (Normal Saline) 500 mls @ 500 mls/hr IV ONETIME ONE Stop: 07/07/20 21:57 Last Admin: 07/07/20 21:11 Dose: 500 mls/hr Documented by: Levothyroxine Sodium (Levothyroxine 25 Mcg Tab) 12,500 mcg PO ACBREAKFAST FLOR - Exam Quality Assessment: Supplemental Oxygen General: Alert, Oriented, Cooperative, No Acute Distress HEENT: Pupils Equal, Pupils Reactive, EOMI, Mucous Membr. Moist/[place] Lungs: Clear to Auscultation, Normal Respiratory Effort Cardiovascular: Regular Rate, Regular Rhythm GI/Abdominal Exam: Normal Bowel Sounds, Soft, No Organomegaly, No Distention, No Mass, Tender Extremities: Normal Inspection, Normal Range of Motion, Non-Tender, No Pedal Edema, Normal Capillary Refill Skin: Other (he has abrasions to his left scalp, right arm.) Wound/Incisions: Healing Well Neurological: No New Focal Deficit Psy/Mental Status: Alert, Normal Affect, Normal Mood - Patient Data Lab Results Last 24 hrs: Laboratory Results - last 24 hr 07/07/20 07/07/20 07/07/20 Range/Units 15:40 16:47 16:54 WBC (4.0-10.0) x10^3/uL RBC (4.5-6.0) x10^6/uL Hgb (14.0-18.0) g/dL Hct (40.0-52.0) % MCV (78.0-93.0) fL MCH (26.0-32.0) pg MCHC (32.0-36.0) g/dL RDW Coeff of Erik (10.0-15.0) % Plt Count (130-400) x10^3/uL Add Manual Diff Neutrophils % (Manual) (50-80) % Lymphocytes % (Manual) (25-50) % Monocytes % (Manual) (2-11) % Eosinophils % (Manual) (0-4) % Platelet Estimate Sodium (136-145) mmol/L Potassium (3.5-5.1) mmol/L Chloride (98-107) mmol/L Carbon Dioxide (21-32) mmol/L Anion Gap (5-15) mmol/L BUN (7-18) mg/dL Creatinine (0.70-1.30) mg/dL Est Cr Clr Drug Dosing mL/min Estimated GFR (MDRD) Glucose (74-106) mg/dL POC Glucose 261 H (74-106) mg/dL Lactic Acid 4.1 H* (0.4-2.0) mmol/L Calcium (8.5-10.1) mg/dL C-Reactive Protein (<=0.9) mg/dL SARS CoV-2 RNA Rapid GWEN Negative (NEGATIVE) 07/07/20 07/07/20 07/07/20 Range/Units 19:21 20:05 20:05 WBC (4.0-10.0) x10^3/uL RBC (4.5-6.0) x10^6/uL Hgb (14.0-18.0) g/dL Hct (40.0-52.0) % MCV (78.0-93.0) fL MCH (26.0-32.0) pg MCHC (32.0-36.0) g/dL RDW Coeff of Erik (10.0-15.0) % Plt Count (130-400) x10^3/uL Add Manual Diff Neutrophils % (Manual) (50-80) % Lymphocytes % (Manual) (25-50) % Monocytes % (Manual) (2-11) % Eosinophils % (Manual) (0-4) % Platelet Estimate Sodium (136-145) mmol/L Potassium (3.5-5.1) mmol/L Chloride (98-107) mmol/L Carbon Dioxide (21-32) mmol/L Anion Gap (5-15) mmol/L BUN (7-18) mg/dL Creatinine (0.70-1.30) mg/dL Est Cr Clr Drug Dosing mL/min Estimated GFR (MDRD) Glucose (74-106) mg/dL POC Glucose 345 H (74-106) mg/dL Lactic Acid 3.8 H* (0.4-2.0) mmol/L Calcium (8.5-10.1) mg/dL C-Reactive Protein 24.1 H (<=0.9) mg/dL SARS CoV-2 RNA Rapid GWEN (NEGATIVE) 07/08/20 07/08/20 07/08/20 Range/Units 05:27 06:40 06:40 WBC 11.5 H (4.0-10.0) x10^3/uL RBC 4.03 L (4.5-6.0) x10^6/uL Hgb 12.9 L D (14.0-18.0) g/dL Hct 39.9 L (40.0-52.0) % MCV 99.0 H D (78.0-93.0) fL MCH 32.0 (26.0-32.0) pg MCHC 32.3 (32.0-36.0) g/dL RDW Coeff of Erik 14.0 (10.0-15.0) % Plt Count 157 (130-400) x10^3/uL Add Manual Diff Yes Neutrophils % (Manual) 72 (50-80) % Lymphocytes % (Manual) 14 L (25-50) % Monocytes % (Manual) 12 H (2-11) % Eosinophils % (Manual) 2 (0-4) % Platelet Estimate Adequate Sodium 143 (136-145) mmol/L Potassium 4.0 (3.5-5.1) mmol/L Chloride 107 (98-107) mmol/L Carbon Dioxide 28 (21-32) mmol/L Anion Gap 12.0 (5-15) mmol/L BUN 36 H (7-18) mg/dL Creatinine 1.9 H (0.70-1.30) mg/dL Est Cr Clr Drug Dosing 21.21 mL/min Estimated GFR (MDRD) 34 Glucose 186 H (74-106) mg/dL POC Glucose 166 H (74-106) mg/dL Lactic Acid (0.4-2.0) mmol/L Calcium 8.7 (8.5-10.1) mg/dL C-Reactive Protein (<=0.9) mg/dL SARS CoV-2 RNA Rapid GWEN (NEGATIVE) 07/08/20 Range/Units 06:40 WBC (4.0-10.0) x10^3/uL RBC (4.5-6.0) x10^6/uL Hgb (14.0-18.0) g/dL Hct (40.0-52.0) % MCV (78.0-93.0) fL MCH (26.0-32.0) pg MCHC (32.0-36.0) g/dL RDW Coeff of Erik (10.0-15.0) % Plt Count (130-400) x10^3/uL Add Manual Diff Neutrophils % (Manual) (50-80) % Lymphocytes % (Manual) (25-50) % Monocytes % (Manual) (2-11) % Eosinophils % (Manual) (0-4) % Platelet Estimate Sodium (136-145) mmol/L Potassium (3.5-5.1) mmol/L Chloride (98-107) mmol/L Carbon Dioxide (21-32) mmol/L Anion Gap (5-15) mmol/L BUN (7-18) mg/dL Creatinine (0.70-1.30) mg/dL Est Cr Clr Drug Dosing mL/min Estimated GFR (MDRD) Glucose (74-106) mg/dL POC Glucose (74-106) mg/dL Lactic Acid 2.2 H* (0.4-2.0) mmol/L Calcium (8.5-10.1) mg/dL C-Reactive Protein (<=0.9) mg/dL SARS CoV-2 RNA Rapid GWEN (NEGATIVE) Result Diagrams: 07/08/20 06:40 07/08/20 06:40 Prateek Results Last 24 hrs: Microbiology 07/07/20 16:59 Anaerobic Blood Culture - Final Blood - Venous - Lab Draw Sepsis Event Note - Evaluation Sepsis Screening Result: Severe Sepsis Risk - Focused Exam Vital Signs: Vital Signs Temp Pulse Resp BP Pulse Ox Pulse Ox 07/08/20 07:41 97 07/08/20 05:59 94 L 07/08/20 05:56 36.6 C 82 20 129/82 94 L 07/08/20 02:00 36.7 C 72 20 103/42 L 94 L 07/07/20 21:40 37.6 C 92 20 110/53 L 92 L 07/07/20 20:55 37.8 C 94 20 110/53 L 94 L - Problem List Review Problem List Initiated/Reviewed/Updated: Yes - My Orders Last 24 Hours: My Active Orders 07/08/20 15:00 BASIC METABOLIC PANEL,BMP [CHEM] Routine LACTIC ACID [CHEM] Routine - Assessment Assessment:: He reports no SOB, cough, chest or abdominal pain. He feels thirsty and is cold but other trujillo is feeling well. His lactic acid is down to 2.2 today. Creat 1.9 and BUN 36. WBC down to 11. He has oxygen via nasal cannula. CT showed RLL pneum onia on Zosyn. We will recheck lab this afternoon and continue IV fluids at 125 ml/ hr. Possible discharge tomorrow. 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 - Fever of 100.6 at the clinic with Leukocytosis of 17.4 with a left shift - Urinalysis on 07/05 negative for UTI - Mild abdominal tenderness on exam however no clear-cut reason for fever and leukocytosis Plan: - Admit to inpatient for further evaluation - Blood Cultures - Lactic Acid - CXR and CT abdomen/pelvis - CBC and BMP in the am - IV: NS at 125/hr, will give bump if LA elevated - After blood culture drawn will start broad spectrum antibiotics: Vanco and Zosyn - PT for weakness Chronic: -T2DM -Bronchitis, Asthma -Hx DVT -HLD -HTN -Hypothyroid *Meds not loaded at time of note, will need to reconcile later as we do not have a current NH list* Diet: NPO for now (until scan completed/reviewed, if ok can switch to diabetic) DVT: patient on coumadin chronically IVF: NS @125 for now Disposition: Patient admitted for further evaluation of fever, leukocytosis, and weakness with a sepsis picture.
[2020-07-08] MEDS: Primidone 50 MG Tab PO SCH ×3 (08:32→19:24)
[2020-07-08] MEDS: Cholecalciferol (Vitamin D3) 25 MCG Tab PO SCH (08:32)
[2020-07-08 15:27] LABS: ANION GAP 14.2 mmol/L (5-15)
[2020-07-08] MEDS ORDERED: [UNRECOGNIZED DRUG - OTHER] SCH (16:45)
[2020-07-08] MEDS ORDERED: Glucagon,Human Recombinant 1 MG Vial IM PRN (17:55)
[2020-07-08] MEDS ORDERED: 50% Dextrose in Water 50 ML Syringe IV PRN (17:55)
[2020-07-08] MEDS ORDERED: Gabapentin 400 MG Cap PO SCH ×2 (18:30→22:00)
--- NOTE | 2020-07-08 18:33 | PCM.SN.2 ---
- Free Text/Narrative Note: 1800:Paged by nursing in regards to patient having heart rate in the 190s. Patient was clinically stable and unaware of fast heart rate. This improved into the 90s without intervention. Decision made to place Tele. Nursing instructed to grab EKG if patient again spikes heart rates to assess rhythm and inform provider. VSS otherwise stable at this time on 2L O2. Also discussed our lack of information on this patient and [facility] last month so we have a baseline Kidney function on him. 184: Nursing paged provider. EKG showed NSR with HR 97. Notes from recent physical and labs received; baseline Cr 1.1 so patient does have NINOSKA. Will continue to monitor on telemetry.
[2020-07-08] MEDS: Insulin Regular, Human 100 Units/ML 3 ML Vial SUBCUT SCH (18:43)
[2020-07-08] MEDS: Warfarin 5 MG Tab PO ONE ×2 (18:48→19:25)
[2020-07-08] MEDS: Montelukast 10 MG Tab PO SCH (19:23)
[2020-07-08] MEDS: Arformoterol 15 MCG/2 ML Neb Soln NEB SCH (19:23)
[2020-07-08] MEDS: Warfarin 5 MG Tab PO SCH (19:24)
[2020-07-08] MEDS: Simvastatin 40 MG Tab PO SCH (19:25)
[2020-07-08] MEDS: Insulin Glarg,Human.Rec.Analog 100 Unit/ML SUBCUT SCH (20:05)
[2020-07-09] MEDS: Piperacillin/Tazobactam 3.375 GM in Sodium Chloride 0.9% 100 ML IV SCH ×3 (00:19→17:40)
[2020-07-09] MEDS: Acetaminophen 325 MG Tab PO PRN ×2 (04:10→21:38)
[2020-07-09] MEDS: Levothyroxine 25 MCG Tab PO SCH (06:22)
[2020-07-09] MEDS: Arformoterol 15 MCG/2 ML Neb Soln NEB SCH ×2 (06:22→20:18)
--- NOTE | 2020-07-09 08:04 | PCM.PN ---
- General Info Date of Service: 07/09/20 Admission Dx/Problem (Free Text): Admission Diagnosis/Problem Admission Diagnosis/Problem Weakness Subjective Update: He denies SOB, chest pain, palpitations. He reports only being sore to abdomen if palpated. Functional Status: Reports: Tolerating Diet, Urinating - Review of Systems General: Reports: No Symptoms HEENT: Reports: No Symptoms Pulmonary: Reports: Cough Cardiovascular: Reports: No Symptoms Gastrointestinal: Reports: No Symptoms Genitourinary: Reports: No Symptoms Musculoskeletal: Reports: Joint Pain Skin: Reports: No Symptoms Neurological: Reports: Weakness Psychiatric: Reports: No Symptoms - Patient Data Vitals - Most Recent: Last Vital Signs Temp 37.4 C 07/09/20 05:24 Pulse 87 07/09/20 05:24 Resp 22 H 07/09/20 05:24 BP 119/54 L 07/09/20 05:24 Pulse Ox 91 L 07/09/20 05:48 Weight - Most Recent: 97.296 kg I&O - Last 24 Hours: Intake & Output 07/08/20 07/09/20 07/09/20 22:59 06:59 14:59 Intake Total 1970 850 Output Total 200 650 Balance 1770 200 Lab Results Last 24 Hours: Laboratory Results - last 24 hr 07/07/20 07/08/20 07/08/20 Range/Units 20:05 12:06 15:00 WBC (4.0-10.0) x10^3/uL RBC (4.5-6.0) x10^6/uL Hgb (14.0-18.0) g/dL Hct (40.0-52.0) % MCV (78.0-93.0) fL MCH (26.0-32.0) pg MCHC (32.0-36.0) g/dL RDW Coeff of Erik (10.0-15.0) % Plt Count (130-400) x10^3/uL Neut % (Auto) (50.0-80.0) % Lymph % (Auto) (25.0-50.0) % Sherman % (Auto) (2.0-11.0) % Eos % (Auto) (0.0-4.0) % Baso % (Auto) (0.2-1.2) % PT (9.9-12.5) SEC INR (2.0-3.5) Sodium 136 (136-145) mmol/L Potassium 4.2 (3.5-5.1) mmol/L Chloride 101 (98-107) mmol/L Carbon Dioxide 25 (21-32) mmol/L Anion Gap 14.2 (5-15) mmol/L BUN 34 H (7-18) mg/dL Creatinine 1.8 H (0.70-1.30) mg/dL Est Cr Clr Drug Dosing 30.98 mL/min Estimated GFR (MDRD) 36 Glucose 265 H (74-106) mg/dL POC Glucose 282 H (74-106) mg/dL Lactic Acid (0.4-2.0) mmol/L Calcium 8.2 L (8.5-10.1) mg/dL Procalcitonin 0.27 H ng/mL 07/08/20 07/08/20 07/08/20 Range/Units 15:00 15:00 17:09 WBC (4.0-10.0) x10^3/uL RBC (4.5-6.0) x10^6/uL Hgb (14.0-18.0) g/dL Hct (40.0-52.0) % MCV (78.0-93.0) fL MCH (26.0-32.0) pg MCHC (32.0-36.0) g/dL RDW Coeff of Erik (10.0-15.0) % Plt Count (130-400) x10^3/uL Neut % (Auto) (50.0-80.0) % Lymph % (Auto) (25.0-50.0) % Sherman % (Auto) (2.0-11.0) % Eos % (Auto) (0.0-4.0) % Baso % (Auto) (0.2-1.2) % PT 16.3 H (9.9-12.5) SEC INR 1.5 L (2.0-3.5) Sodium (136-145) mmol/L Potassium (3.5-5.1) mmol/L Chloride (98-107) mmol/L Carbon Dioxide (21-32) mmol/L Anion Gap (5-15) mmol/L BUN (7-18) mg/dL Creatinine (0.70-1.30) mg/dL Est Cr Clr Drug Dosing mL/min Estimated GFR (MDRD) Glucose (74-106) mg/dL POC Glucose 254 H (74-106) mg/dL Lactic Acid 2.5 H* (0.4-2.0) mmol/L Calcium (8.5-10.1) mg/dL Procalcitonin ng/mL 07/08/20 07/09/20 07/09/20 Range/Units 19:57 05:24 06:30 WBC 10.5 H (4.0-10.0) x10^3/uL RBC 3.63 L (4.5-6.0) x10^6/uL Hgb 11.7 L (14.0-18.0) g/dL Hct 35.5 L (40.0-52.0) % MCV 97.8 H (78.0-93.0) fL MCH 32.2 H (26.0-32.0) pg MCHC 33.0 (32.0-36.0) g/dL RDW Coeff of Erik 13.2 (10.0-15.0) % Plt Count 157 (130-400) x10^3/uL Neut % (Auto) 60.0 (50.0-80.0) % Lymph % (Auto) 15.0 L (25.0-50.0) % Sherman % (Auto) 19.5 H (2.0-11.0) % Eos % (Auto) 5.2 H (0.0-4.0) % Baso % (Auto) 0.3 (0.2-1.2) % PT (9.9-12.5) SEC INR (2.0-3.5) Sodium (136-145) mmol/L Potassium (3.5-5.1) mmol/L Chloride (98-107) mmol/L Carbon Dioxide (21-32) mmol/L Anion Gap (5-15) mmol/L BUN (7-18) mg/dL Creatinine (0.70-1.30) mg/dL Est Cr Clr Drug Dosing mL/min Estimated GFR (MDRD) Glucose (74-106) mg/dL POC Glucose 308 H 199 H (74-106) mg/dL Lactic Acid (0.4-2.0) mmol/L Calcium (8.5-10.1) mg/dL Procalcitonin ng/mL 07/09/20 07/09/20 07/09/20 Range/Units 06:30 06:30 06:30 WBC (4.0-10.0) x10^3/uL RBC (4.5-6.0) x10^6/uL Hgb (14.0-18.0) g/dL Hct (40.0-52.0) % MCV (78.0-93.0) fL MCH (26.0-32.0) pg MCHC (32.0-36.0) g/dL RDW Coeff of Erik (10.0-15.0) % Plt Count (130-400) x10^3/uL Neut % (Auto) (50.0-80.0) % Lymph % (Auto) (25.0-50.0) % Sherman % (Auto) (2.0-11.0) % Eos % (Auto) (0.0-4.0) % Baso % (Auto) (0.2-1.2) % PT 15.6 H (9.9-12.5) SEC INR 1.4 L (2.0-3.5) Sodium 137 (136-145) mmol/L Potassium 4.0 (3.5-5.1) mmol/L Chloride 104 (98-107) mmol/L Carbon Dioxide 27 (21-32) mmol/L Anion Gap 10.0 (5-15) mmol/L BUN 32 H (7-18) mg/dL Creatinine 1.7 H (0.70-1.30) mg/dL Est Cr Clr Drug Dosing 32.80 mL/min Estimated GFR (MDRD) 38 Glucose (74-106) mg/dL POC Glucose (74-106) mg/dL Lactic Acid 1.1 (0.4-2.0) mmol/L Calcium 8.1 L (8.5-10.1) mg/dL Procalcitonin ng/mL Prateek Results Last 24 Hours: Microbiology 07/07/20 16:59 Aerobic Blood Culture - Preliminary Blood - Venous - Lab Draw NO GROWTH AFTER 1 DAY Anaerobic Blood Culture - Final 07/07/20 16:47 Aerobic Blood Culture - Preliminary Blood - Venous NO GROWTH AFTER 1 DAY Anaerobic Blood Culture - Preliminary NO GROWTH AFTER 1 DAY 07/07/20 15:40 MRSA Surveillance Culture - Final Nares, Right NO MRSA ISOLATED Med Orders - Current: Current Medications Acetaminophen (Acetaminophen 325 Mg Tab) 650 mg PO Q4H PRN PRN Reason: Pain (Mild 1-3)/fever Last Admin: 07/09/20 04:10 Dose: 650 mg Documented by: Albuterol (Albuterol 0.083% 2.5 Mg/3 Ml Neb Soln) 2.5 mg NEB QID PRN PRN Reason: Shortness of Breath Albuterol (Albuterol Hfa 18 Gm Inhaler) 0 gm INH QID PRN PRN Reason: Shortness of Breath Arformoterol Tartrate (Arformoterol 15 Mcg/2 Ml Neb Soln) 15 mcg NEB BIDRT ON LICENSE OF [facility] Last Admin: 07/09/20 06:22 Dose: 15 mcg Documented by: Budesonide (Budesonide 0.5 Mg/2 Ml Neb Susp) 0.5 mg INH BID ON LICENSE OF [facility] Last Admin: 07/08/20 20:05 Dose: 0.5 mg Documented by: Chlorthalidone (Chlorthalidone 25 Mg Tab) 12.5 mg PO DAILY ON LICENSE OF [facility] Cholecalciferol (Cholecalciferol (Vitamin D3) 25 Mcg Tab) 50 mcg PO DAILY ON LICENSE OF [facility] Last Admin: 07/08/20 08:32 Dose: 50 mcg Documented by: Dextrose/Water (50% Dextrose In Water 50 Ml Syringe) 50 ml IV ASDIRECTED PRN PRN Reason: Hypoglycemia Gabapentin (Gabapentin 400 Mg Cap) 400 mg PO TID ON LICENSE OF [facility] Gabapentin (Gabapentin 400 Mg Cap) 400 mg PO ONETIME ON LICENSE OF [facility] Last Admin: 07/08/20 18:46 Dose: 400 mg Documented by: Gabapentin (Gabapentin 400 Mg Cap) 400 mg PO ONETIME ON LICENSE OF [facility] Last Admin: 07/08/20 22:12 Dose: 400 mg Documented by: Glipizide (Glipizide 10 Mg Tab) 10 mg PO BIDAC ON LICENSE OF [facility] Glucagon (Glucagon,Human Recombinant 1 Mg Vial) 1 mg IM ASDIRECTED PRN PRN Reason: Hypoglycemia Sodium Chloride (Normal Saline) 1,000 mls @ 125 mls/hr IV ASDIRECTED ON LICENSE OF [facility] Last Admin: 07/08/20 17:13 Dose: 125 mls/hr Documented by: Piperacillin Sod/Tazobactam (Sod 3.375 gm/ Sodium Chloride) 100 mls @ 25 mls/hr IV Q8H ON LICENSE OF [facility] Last Admin: 07/09/20 00:19 Dose: 25 mls/hr Documented by: Insulin Glargine (Insulin Glarg,Human.Rec.Analog 100 Unit/Ml) 73 unit SUBCUT BEDTIME ON LICENSE OF [facility] Last Admin: 07/08/20 20:05 Dose: 73 units Documented by: Insulin Human Regular (Insulin Regular, Human 100 Units/Ml 3 Ml Vial) 0 unit SUBCUT TIDMEALS ON LICENSE OF [facility]; Protocol Last Admin: 07/08/20 18:43 Dose: 3 units Documented by: Levothyroxine Sodium (Levothyroxine 25 Mcg Tab) 12.5 mcg PO ACBREAKFAST ON LICENSE OF [facility] Last Admin: 07/09/20 06:22 Dose: 12.5 mcg Documented by: Montelukast Sodium (Montelukast 10 Mg Tab) 10 mg PO BEDTIME ON LICENSE OF [facility] Last Admin: 07/08/20 19:23 Dose: 10 mg Documented by: Ondansetron HCl (Ondansetron 4 Mg Tab.Dis) 4 mg PO Q4H PRN PRN Reason: nausea, able to take PO Pharmacy Consult (Warfarin Pharmacy Consult Order) 1 each .XX ASDIRECTED ON LICENSE OF [facility] Primidone (Primidone 50 Mg Tab) 150 mg PO TID ON LICENSE OF [facility] Last Admin: 07/08/20 19:24 Dose: 150 mg Documented by: Simvastatin (Simvastatin 40 Mg Tab) 40 mg PO BEDTIME ON LICENSE OF [facility] Last Admin: 07/08/20 19:25 Dose: 40 mg Documented by: Warfarin Sodium (Warfarin 5 Mg Tab) 15 mg PO SuMoTuWeThSa@1999 ON LICENSE OF [facility] Last Admin: 07/08/20 19:24 Dose: 15 mg Documented by: Warfarin Sodium (Warfarin 5 Mg Tab) 20 mg PO Fr@1999 ON LICENSE OF [facility] Discontinued Medications Glipizide (Glipizide 10 Mg Tab) 10 mg PO BIDAC ON LICENSE OF [facility] Vancomycin HCl 1 gm/ Sodium (Chloride) 250 mls @ 250 mls/hr IV Q24H ON LICENSE OF [facility] Piperacillin Sod/Tazobactam (Sod 4.5 gm/ Sodium Chloride) 100 mls @ 25 mls/hr IV Q8H ON LICENSE OF [facility] Last Admin: 07/07/20 17:58 Dose: Not Given Documented by: Piperacillin Sod/Tazobactam (Sod 4.5 gm/ Sodium Chloride) 100 mls @ 200 mls/hr IV ONETIME ONE Stop: 03/17/21 17:29 Last Admin: 07/07/20 17:15 Dose: 200 mls/hr Documented by: Vancomycin HCl 1 gm/ Sodium (Chloride) 250 mls @ 250 mls/hr IV ONETIME ONE Stop: 07/07/20 18:59 Last Admin: 07/07/20 18:29 Dose: 250 mls/hr Documented by: Sodium Chloride (Normal Saline) 500 mls @ 500 mls/hr IV ONETIME ONE Stop: 07/07/20 21:57 Last Admin: 07/07/20 21:11 Dose: 500 mls/hr Documented by: Levothyroxine Sodium (Levothyroxine 25 Mcg Tab) 12,500 mcg PO ACBREAKFAST FLOR Warfarin Sodium (Warfarin 5 Mg Tab) 5 mg PO ONETIME ONE Stop: 07/08/20 20:01 Last Admin: 07/08/20 19:25 Dose: Not Given Documented by: - Exam Quality Assessment: Supplemental Oxygen General: Alert, Oriented, Cooperative, No Acute Distress Lungs: Clear to Auscultation, Normal Respiratory Effort Cardiovascular: Regular Rate, Regular Rhythm, No Murmurs GI/Abdominal Exam: Normal Bowel Sounds, Soft, Tender (minimal tenderness epigastrium today) Extremities: Joint Swelling (left knee is abraised and has swelling) Skin: Warm, Dry, Intact Wound/Incisions: Healing Well Neurological: No New Focal Deficit Psy/Mental Status: Alert, Normal Affect, Normal Mood - Patient Data Lab Results Last 24 hrs: Laboratory Results - last 24 hr 07/07/20 07/08/20 07/08/20 Range/Units 20:05 12:06 15:00 WBC (4.0-10.0) x10^3/uL RBC (4.5-6.0) x10^6/uL Hgb (14.0-18.0) g/dL Hct (40.0-52.0) % MCV (78.0-93.0) fL MCH (26.0-32.0) pg MCHC (32.0-36.0) g/dL RDW Coeff of Erik (10.0-15.0) % Plt Count (130-400) x10^3/uL Neut % (Auto) (50.0-80.0) % Lymph % (Auto) (25.0-50.0) % Sherman % (Auto) (2.0-11.0) % Eos % (Auto) (0.0-4.0) % Baso % (Auto) (0.2-1.2) % PT (9.9-12.5) SEC INR (2.0-3.5) Sodium 136 (136-145) mmol/L Potassium 4.2 (3.5-5.1) mmol/L Chloride 101 (98-107) mmol/L Carbon Dioxide 25 (21-32) mmol/L Anion Gap 14.2 (5-15) mmol/L BUN 34 H (7-18) mg/dL Creatinine 1.8 H (0.70-1.30) mg/dL Est Cr Clr Drug Dosing 30.98 mL/min Estimated GFR (MDRD) 36 Glucose 265 H (74-106) mg/dL POC Glucose 282 H (74-106) mg/dL Lactic Acid (0.4-2.0) mmol/L Calcium 8.2 L (8.5-10.1) mg/dL Procalcitonin 0.27 H ng/mL 07/08/20 07/08/20 07/08/20 Range/Units 15:00 15:00 17:09 WBC (4.0-10.0) x10^3/uL RBC (4.5-6.0) x10^6/uL Hgb (14.0-18.0) g/dL Hct (40.0-52.0) % MCV (78.0-93.0) fL MCH (26.0-32.0) pg MCHC (32.0-36.0) g/dL RDW Coeff of Erik (10.0-15.0) % Plt Count (130-400) x10^3/uL Neut % (Auto) (50.0-80.0) % Lymph % (Auto) (25.0-50.0) % Sherman % (Auto) (2.0-11.0) % Eos % (Auto) (0.0-4.0) % Baso % (Auto) (0.2-1.2) % PT 16.3 H (9.9-12.5) SEC INR 1.5 L (2.0-3.5) Sodium (136-145) mmol/L Potassium (3.5-5.1) mmol/L Chloride (98-107) mmol/L Carbon Dioxide (21-32) mmol/L Anion Gap (5-15) mmol/L BUN (7-18) mg/dL Creatinine (0.70-1.30) mg/dL Est Cr Clr Drug Dosing mL/min Estimated GFR (MDRD) Glucose (74-106) mg/dL POC Glucose 254 H (74-106) mg/dL Lactic Acid 2.5 H* (0.4-2.0) mmol/L Calcium (8.5-10.1) mg/dL Procalcitonin ng/mL 07/08/20 07/09/20 07/09/20 Range/Units 19:57 05:24 06:30 WBC 10.5 H (4.0-10.0) x10^3/uL RBC 3.63 L (4.5-6.0) x10^6/uL Hgb 11.7 L (14.0-18.0) g/dL Hct 35.5 L (40.0-52.0) % MCV 97.8 H (78.0-93.0) fL MCH 32.2 H (26.0-32.0) pg MCHC 33.0 (32.0-36.0) g/dL RDW Coeff of Erik 13.2 (10.0-15.0) % Plt Count 157 (130-400) x10^3/uL Neut % (Auto) 60.0 (50.0-80.0) % Lymph % (Auto) 15.0 L (25.0-50.0) % Sherman % (Auto) 19.5 H (2.0-11.0) % Eos % (Auto) 5.2 H (0.0-4.0) % Baso % (Auto) 0.3 (0.2-1.2) % PT (9.9-12.5) SEC INR (2.0-3.5) Sodium (136-145) mmol/L Potassium (3.5-5.1) mmol/L Chloride (98-107) mmol/L Carbon Dioxide (21-32) mmol/L Anion Gap (5-15) mmol/L BUN (7-18) mg/dL Creatinine (0.70-1.30) mg/dL Est Cr Clr Drug Dosing mL/min Estimated GFR (MDRD) Glucose (74-106) mg/dL POC Glucose 308 H 199 H (74-106) mg/dL Lactic Acid (0.4-2.0) mmol/L Calcium (8.5-10.1) mg/dL Procalcitonin ng/mL 07/09/20 07/09/20 07/09/20 Range/Units 06:30 06:30 06:30 WBC (4.0-10.0) x10^3/uL RBC (4.5-6.0) x10^6/uL Hgb (14.0-18.0) g/dL Hct (40.0-52.0) % MCV (78.0-93.0) fL MCH (26.0-32.0) pg MCHC (32.0-36.0) g/dL RDW Coeff of Erik (10.0-15.0) % Plt Count (130-400) x10^3/uL Neut % (Auto) (50.0-80.0) % Lymph % (Auto) (25.0-50.0) % Sherman % (Auto) (2.0-11.0) % Eos % (Auto) (0.0-4.0) % Baso % (Auto) (0.2-1.2) % PT 15.6 H (9.9-12.5) SEC INR 1.4 L (2.0-3.5) Sodium 137 (136-145) mmol/L Potassium 4.0 (3.5-5.1) mmol/L Chloride 104 (98-107) mmol/L Carbon Dioxide 27 (21-32) mmol/L Anion Gap 10.0 (5-15) mmol/L BUN 32 H (7-18) mg/dL Creatinine 1.7 H (0.70-1.30) mg/dL Est Cr Clr Drug Dosing 32.80 mL/min Estimated GFR (MDRD) 38 Glucose (74-106) mg/dL POC Glucose (74-106) mg/dL Lactic Acid 1.1 (0.4-2.0) mmol/L Calcium 8.1 L (8.5-10.1) mg/dL Procalcitonin ng/mL Result Diagrams: 07/09/20 06:30 07/09/20 06:30 Prateek Results Last 24 hrs: Microbiology 07/07/20 16:59 Aerobic Blood Culture - Preliminary Blood - Venous - Lab Draw NO GROWTH AFTER 1 DAY Anaerobic Blood Culture - Final 07/07/20 16:47 Aerobic Blood Culture - Preliminary Blood - Venous NO GROWTH AFTER 1 DAY Anaerobic Blood Culture - Preliminary NO GROWTH AFTER 1 DAY 07/07/20 15:40 MRSA Surveillance Culture - Final Nares, Right NO MRSA ISOLATED Sepsis Event Note - Evaluation Sepsis Screening Result: No Definite Risk - Focused Exam Vital Signs: Vital Signs Temp Temp Temp Pulse Resp BP Pulse Ox 07/09/20 05:48 91 L 07/09/20 05:24 37.4 C 87 22 H 119/54 L 94 L 07/09/20 04:40 37.2 C 07/09/20 04:10 37.7 C 07/09/20 02:53 37.1 C 07/09/20 02:48 96 07/09/20 02:00 38.4 C H 87 22 H 130/59 L 92 L 07/08/20 22:00 37.0 C 88 18 129/55 L 92 L 07/08/20 20:43 Pulse Ox 07/09/20 05:48 07/09/20 05:24 07/09/20 04:40 07/09/20 04:10 07/09/20 02:53 07/09/20 02:48 07/09/20 02:00 07/08/20 22:00 07/08/20 20:43 92 L - Problem List Review Problem List Initiated/Reviewed/Updated: Yes - My Orders Last 24 Hours: My Active Orders 07/08/20 14:12 RT Aerosol Therapy [RC] ,20 07/08/20 16:45 Pharmacy Consult [Consult to Pharmacy] 1 each .XX ASDIRECTED 07/08/20 17:53 Telemetry Monitoring [Cardiac Monitoring] [RC] 02,06,10,14,18,22 07/08/20 17:55 Dextrose 50% in Water 50 ml IV ASDIRECTED PRN Glucagon,Human Recombinant [GlucaGen] 1 mg IM ASDIRECTED PRN 07/08/20 18:00 Insulin Regular, Human [HumuLIN R] See Protocol SUBCUT TIDMEALS 07/08/20 20:00 Lab Instructions for Nurse [RC] DAILY Arformoterol [Brovana] 15 mcg NEB BIDRT Warfarin [Coumadin] 15 mg PO [email or web address]/09/20 06:30 BASIC METABOLIC PANEL,BMP [CHEM] Routine 07/09/20 07:00 Chest 2V [CR] Routine 07/09/20 07:56 Knee 3V Lt [CR] Routine 07/09/20 07:57 Up With Assistance [RC] ASDIRECTED 07/09/20 08:00 Chlorthalidone 12.5 mg PO DAILY Gabapentin [Neurontin] 400 mg PO TID 07/09/20 17:00 glipiZIDE [Glucotrol] 10 mg PO BIDAC 07/09/20 20:00 Warfarin [Coumadin] 20 mg PO Fr@1999 - Assessment Assessment:: He reports no SOB, cough, chest or abdominal pain. He feels thirsty and is cold but other trujillo is feeling well. His lactic acid is down to 2.2 today. Creat 1.9 and BUN 36. WBC down to 11. He has oxygen via nasal cannula. CT showed RLL pneumonia on Zosyn. We will recheck lab this afternoon and continue IV fluids at 125 ml/ hr. Possible discharge tomorrow. 07/09/20: RLL pneumonia- CXR pending, continue Zosyn, Tachycardia- resolved on telemetry, Abd tenderness- improved, WBC normal, Lactic acid normal, left knee pain and swelling- get xray today, Weakness- PT is working with, nursing reports transfers with 2. 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 - Fever of 100.6 at the clinic with Leukocytosis of 17.4 with a left shift - Urinalysis on 07/05 negative for UTI - Mild abdominal tenderness on exam however no clear-cut reason for fever and leukocytosis Plan: - Admit to inpatient for further evaluation - Blood Cultures - Lactic Acid - CXR and CT abdomen/pelvis - CBC and BMP in the am - IV: NS at 125/hr, will give bump if LA elevated - After blood culture drawn will start broad spectrum antibiotics: Vanco and Zosyn - PT for weakness Chronic: -T2DM -Bronchitis, Asthma -Hx DVT -HLD -HTN -Hypothyroid *Meds not loaded at time of note, will need to reconcile later as we do not have a current NH list* Diet: NPO for now (until scan completed/reviewed, if ok can switch to diabetic) DVT: patient on coumadin chronically IVF: NS @125 for now Disposition: Patient admitted for further evaluation of fever, leukocytosis, and weakness with a sepsis picture. 07/09/20: RLL pneumonia- CXR pending, continue Zosyn. Blood cultures pending. No fever during night. Sepsis- Vital signs stable, On telemetry for HR of 190 last evening- no tachycardia during night. Lactic acid normal today. Leukocytosis- Resolved today. Weakness- Nursing reports very weak requiring 2 to transfer. PT helped up to chair yesterday. He is feeding self today but is difficult with significant left arm tremor. Will reduce IV fluids to 75 ml/ hr. Plan: Continue telemetry. Reduce IV to 75 ml/ hr. Continue Zosyn. Lab in morning is ordered (CBC and BMP). Will evaluate xrays when available. Senna Plus for bowels.
[2020-07-09] MEDS: Budesonide 0.5 MG/2 ML Neb Susp INH SCH ×2 (08:20→20:13)
[2020-07-09] MEDS: Primidone 50 MG Tab PO SCH ×3 (08:21→20:18)
[2020-07-09] MEDS: Chlorthalidone 25 MG Tab PO SCH (08:21)
[2020-07-09] MEDS: Insulin Regular, Human 100 Units/ML 3 ML Vial SUBCUT SCH ×3 (08:26→17:33)
[2020-07-09] MEDS: Cholecalciferol (Vitamin D3) 25 MCG Tab PO SCH (08:29)
[2020-07-09] MEDS: Gabapentin 400 MG Cap PO SCH ×3 (08:29→20:19)
--- NOTE | 2020-07-09 09:32 | CR ---
[id number] RAD/RAD Chest PA And Lateral EXAM: RAD Chest PA And Lateral INDICATION: RIGHT LOWER LOBE PNEUMONIA. COMPARISON: July 07, 2020. DISCUSSION: Cardiomediastinal silhouette is normal in size and contour. Lungs are clear. No pleural effusion or pneumothorax. IMPRESSION: No radiographically evident pneumonia or other acute findings in the chest. Small area of parenchymal opacification in the right lower lobe seen on CT from July 07, 2020 is not radiographically evident. August Feldman MD 07/09/20 0932 Thank you for allowing us to participate in the care of your patient.
[2020-07-09] MEDS: Sodium Chloride 0.9% 1,000 ML IV SCH (09:37)
--- NOTE | 2020-07-09 09:42 | CR ---
[id number] RAD/RAD Knee Left 1-2V Exam: RAD Knee Left 1-2V Indication:SWELLING. Comparison: No prior imaging for comparison. Discussion/Impression: Tricompartmental knee joint osteoarthritis. There is likely some degree of medial compartment joint space narrowing, however positioning on both views is not optimal. No definite joint effusion. Patella and quadriceps enthesopathy at their patellar attachments. No visible fracture. Soft tissue swelling, nonspecific in etiology. August Feldman MD 07/09/20 0941 Thank you for allowing us to participate in the care of your patient.
--- NOTE | 2020-07-09 14:46 | CT ---
[id number] CT/CT Head WO IV EXAM: CT Head WO IV CLINICAL DATA: NEUROLOGIC DEFICIT COMPARISON: CORRELATION IS MADE WITH NOVEMBER 04, 2018 FINDINGS: There is no mass or mass effect. There is no hemorrhage or hydrocephalus. There are no extra-axial fluid collections. There are no sites of abnormal attenuation. IMPRESSION: NO PLAIN CT EVIDENCE OF ACUTE INTRACRANIAL PROCESS. David Echevarria MD 07/09/20 9839 Thank you for allowing us to participate in the care of your patient.
[2020-07-09] MEDS ORDERED: guaiFENesin 600 MG Tab.ER PO PRN (14:47)
--- NOTE | 2020-07-09 14:51 | PCM.SN.2 ---
- Free Text/Narrative Note: 07/09/20 1445: - Blood sugars are running 200-300. Will resume Jardiance with close monitoring of electrolytes. Will hold Metformin (lactic acidosis) and Glipizide (NINOSKA). Will split dose Lantus and increase dose from 73 units once a day to 40 units BID. - CT head this afternoon due to change in strength and ambulation. He has contusion to left forehead. Head CT negative. -Will DC IV fluids and place saline lock. He has had 360 ml oral intake of fluid past 6 hours so is adequate without IV. - Will DC telemetry as no further SVT seen. Fast HR one episode on evening with no further tachyarrhythmias seen since. - Oxygen can be 2 L/nc for pulse oximetry less than 90%. - Pharmacy is monitoring INR's and dosing Coumadin (on chronically for hx of DVT). - Hold prostate cancer medication while in hospital. -BMP/ CBC are ordered daily in hospital. -Report to Mauricio Nguyen NP for weekend hospitalist coverage at 5 pm today. -Dr. Willis is back on Sunday07/12/20. [facility]
[2020-07-09] MEDS: EMPAGLIFLOZIN PO SCH (17:32)
[2020-07-09] MEDS ORDERED: Warfarin 5 MG Tab PO SCH (20:00)
[2020-07-09] MEDS ORDERED: glipiZIDE 10 MG Tab.ER PO SCH (20:00)
[2020-07-09] MEDS: Montelukast 10 MG Tab PO SCH (20:18)
[2020-07-09] MEDS: Simvastatin 40 MG Tab PO SCH (20:19)
[2020-07-09] MEDS: Insulin Glarg,Human.Rec.Analog 100 Unit/ML SUBCUT SCH (20:25)
[2020-07-10] MEDS: Piperacillin/Tazobactam 3.375 GM in Sodium Chloride 0.9% 100 ML IV SCH ×2 (00:49→08:59)
[2020-07-10] MEDS: Levothyroxine 25 MCG Tab PO SCH (06:53)
[2020-07-10] MEDS: Arformoterol 15 MCG/2 ML Neb Soln NEB SCH ×2 (06:53→19:32)
[2020-07-10] MEDS: Budesonide 0.5 MG/2 ML Neb Susp INH SCH ×2 (09:04→19:36)
[2020-07-10] MEDS: Gabapentin 400 MG Cap PO SCH ×3 (09:04→19:47)
[2020-07-10] MEDS: Primidone 50 MG Tab PO SCH ×3 (09:04→19:45)
[2020-07-10] MEDS: Chlorthalidone 25 MG Tab PO SCH (09:04)
[2020-07-10] MEDS: Cholecalciferol (Vitamin D3) 25 MCG Tab PO SCH (09:04)
[2020-07-10] MEDS: Insulin Glarg,Human.Rec.Analog 100 Unit/ML SUBCUT SCH ×2 (09:06→19:41)
[2020-07-10] MEDS: Insulin Regular, Human 100 Units/ML 3 ML Vial SUBCUT SCH ×3 (09:09→19:03)
[2020-07-10] MEDS: EMPAGLIFLOZIN PO SCH (09:12)
[2020-07-10 11:17] LABS: ANION GAP 14.1 mmol/L (5-15)
--- NOTE | 2020-07-10 13:42 | PN ---
Progress Note for TONY PERDOMO Date: 07/10/2020 Room #: VM.214 CHIEF COMPLAINT: Weakness. SUBJECTIVE: An 85-year-old male patient with a past medical history of prostate cancer; BPH; type 2 diabetes; essential hypertension; hyperlipidemia; mild persistent asthma; chronic bronchitis; hypothyroidism; Parkinson disease with essential tremor; and DVT, on chronic anticoagulation, who had presented to the [facility] on 07/07/2020 for increased confusion and incontinence. Workup in the clinic showed the patient had a fever and leukocytosis with acute kidney injury. Decision was made to admit the patient to the acute care floor at [facility] for further workup of his presenting symptoms. The patient was then diagnosed with sepsis secondary to pneumonia with unknown etiology, fever, leukocytosis, weakness, and confusion. The patient offers no specific complaints this morning. The patient denies any headaches, dizziness, or lightheadedness. The patient denies any shortness of breath or cough. The patient denies any chest pain or palpitations. The patient denies any fevers or chills. The patient states he does not feel confused. The patient denies any abdominal pain. The patient has not had any issues with urination or bowel movements. The patient denies any nausea, vomiting, or diarrhea. REVIEW OF SYSTEMS: Constitutional: Negative. Skin: Negative. Respiratory: Negative. Cardiovascular: Negative. Abdomen: Negative. Neurological: Negative. PHYSICAL EXAMINATION: Vital Signs: Temperature 98.5, pulse 84, blood pressure 138/62, respiratory rate 21, oxygen saturation 94% on 2 L. Respiratory: Lungs are diminished throughout, otherwise clear. Cardiovascular: Regular rate and rhythm, no murmur. Abdomen: Soft, nontender. Bowel sounds are hypoactive x4. Extremities: No edema. Skin: Intact, warm, and dry. Neurological: The patient is alert. No new focal neurological deficits. The patient is cooperative. The patient does not appear to be in any acute distress. LABORATORY STUDIES: 1. CBC: White blood cell count 9.4, hemoglobin 12.2, hematocrit 36.9, platelets are 176,000. 2. CMP: Sodium 136, potassium 4.1, chloride 101, CO2 of 25, anion gap 14.1, BUN 29, creatinine 1.6, GFR 41, glucose 268, calcium 8.5, total bilirubin 0.5, AST 54, ALT 45, alkaline phosphatase 119, total protein 6.5, albumin 2.5. 3. TSH 2.163. 4. Lactic acid 1.8. 5. CRP 25.8. IMAGING STUDIES: 1. CT of head shows no plain CT evidence of acute intracranial process. 2. CT of the abdomen and pelvis showed no abnormality to explain fever of unknown origin. 3. Chest x-ray shows no radiographically evident pneumonia or other acute findings in the chest. Small area of parenchymal opacification in the right lower lobe seen on CT from 07/07/2020 is not radiographically evident. ASSESSMENT: 1. Sepsis secondary to pneumonia, unknown etiology/organism; resolved. 2. Leukocytosis, resolved. 3. Confusion, resolved. 4. Weakness and deconditioning, improving. 5. Parkinson disease. 6. Mild persistent asthma. 7. Type 2 diabetes, uncontrolled, on long-term use of insulin. 8. Hypertension associated with diabetes. 9. Hyperlipidemia associated with diabetes. 10.Acquired hypothyroidism. PLAN: An 85-year-old male patient who was admitted to the acute care floor at [facility] with the above diagnoses. We will stop Zosyn as the patient has no leukocytosis, hemodynamically stable, no evidence on x-ray of pneumonia, and the patient has remained afebrile. The patient is taking p.o. fluids well, therefore we will stop IV fluids. We will continue all other medications the same. Recheck laboratory work tomorrow morning. Encourage the patient to ambulate as much as possible. We discussed cough and deep breathing and incentive spirometer. The patient will remain on acute cares due to inability to discharge back to care home on a weekend. No medical necessity for additional imaging studies. The patient is a code 2. We will continue to follow. TB: 07/10/2020 13:00:07 MODL: 07/10/2020 13:35:43 /[id number]
[2020-07-10] MEDS: Sodium Chloride 0.9% 10 ML Syringe FLUSH PRN (19:36)
[2020-07-10] MEDS: Warfarin 5 MG Tab PO SCH (19:45)
[2020-07-10] MEDS: Montelukast 10 MG Tab PO SCH (19:46)
[2020-07-10] MEDS: Simvastatin 40 MG Tab PO SCH (19:46)
[2020-07-11] MEDS: Arformoterol 15 MCG/2 ML Neb Soln NEB SCH ×2 (06:26→19:37)
[2020-07-11] MEDS: Levothyroxine 25 MCG Tab PO SCH (06:27)
[2020-07-11] MEDS: Budesonide 0.5 MG/2 ML Neb Susp INH SCH ×2 (06:27→19:46)
[2020-07-11 08:18] LABS: ANION GAP 12.9 mmol/L (5-15)
[2020-07-11] MEDS: Lactobacillus Rhamnosus GG (Probiotic) Cap PO SCH (09:33)
[2020-07-11] MEDS: EMPAGLIFLOZIN PO SCH (09:33)
[2020-07-11] MEDS: Chlorthalidone 25 MG Tab PO SCH (09:33)
[2020-07-11] MEDS: Gabapentin 400 MG Cap PO SCH ×3 (09:34→19:48)
[2020-07-11] MEDS: Cholecalciferol (Vitamin D3) 25 MCG Tab PO SCH (09:34)
[2020-07-11] MEDS: Primidone 50 MG Tab PO SCH ×3 (09:34→19:46)
[2020-07-11] MEDS: Insulin Glarg,Human.Rec.Analog 100 Unit/ML SUBCUT SCH ×2 (09:35→19:49)
[2020-07-11] MEDS: Insulin Regular, Human 100 Units/ML 3 ML Vial SUBCUT SCH ×3 (09:36→18:56)
[2020-07-11] MEDS: Sodium Chloride 0.9% 10 ML Syringe FLUSH PRN ×2 (09:37→19:43)
--- NOTE | 2020-07-11 15:01 | PN ---
Progress Note for TONY PERDOMO Date: 07/11/2020 Room #: VM.214 CHIEF COMPLAINT: Weakness. SUBJECTIVE: 85-year-old male patient with a past medical history of prostate cancer; BPH; type 2 diabetes; essential hypertension; hyperlipidemia; mild persistent asthma; chronic bronchitis; hypothyroidism; Parkinson disease with essential tremor; and DVT, on chronic anticoagulation was admitted to the acute care floor at [facility] on 07/07/2020 for increased confusion and incontinence. Workup in the clinic showed the patient had a fever and leukocytosis with acute kidney injury. Decision was made to admit the patient to the acute care floor at [facility] for further workup of his presenting symptoms. The patient was diagnosed with sepsis secondary to pneumonia with unknown etiology, fever, leukocytosis, weakness, and confusion. The patient offers no specific complaints today. He states that his tremors feel a little bit worse. He denies any headache, dizziness, or lightheadedness. The patient has not had any cough or chest pain. The patient denies any shortness of breath or palpitations. The patient denies any abdominal pain. No problems with urination or bowel movements. The patient denies any fevers or chills. REVIEW OF SYSTEMS: Constitutional: Negative. Skin: Negative. Respiratory: Negative. Cardiovascular: Negative. Abdomen: Negative. Neurological: Worsening tremors. PHYSICAL EXAMINATION: Vital Signs: Temperature 99, pulse 82, blood pressure 114/64, respiratory rate 18, oxygen saturation 90%. Skin: Intact, warm, and dry. Respiratory: Lungs are diminished throughout, otherwise clear. Cardiovascular: Regular rate and rhythm, no murmur. Abdomen: Soft, nontender. Bowel sounds are hypoactive x4. Extremities: No edema. Neurological: The patient is alert. No new focal neurological deficits. The patient is cooperative. The patient does not appear to be in any acute distress. LABORATORY STUDIES: CBC: White blood cell count 9.8, hemoglobin 12.3, hematocrit 37.0, platelets 182,000. INR 2.8. BMP: Sodium 138, potassium 3.9, chloride 103, CO2 of 26, anion gap 12.9, BUN 29, creatinine 1.4, GFR 48, glucose 144, calcium 8.6. ASSESSMENT: 1. Sepsis secondary to pneumonia, unknown etiology/organism-resolved. 2. Leukocytosis-resolved. 3. Confusion-resolved. 4. Weakness and deconditioning, improving. 5. Parkinson disease. 6. Mild persistent asthma. 7. Type 2 diabetes, uncontrolled, on long-term use of insulin. 8. Hypertension associated with diabetes. 9. Hyperlipidemia associated with diabetes. 10.Acquired hypothyroidism. PLAN: 85-year-old male patient was admitted to the acute care floor at [facility] with the above diagnoses. The patient is doing well being off the Zosyn and IV fluids. He continues to take p.o. fluids well. Continue with incentive spirometry and cough and deep breathing. Encourage p.o. fluids as much as possible. Anticipate discharge back to [facility] tomorrow. The patient is a code 2. We will continue to follow. TB: 07/11/2020 14:28:32 MODL: 07/11/2020 14:49:10 /[id number]
[2020-07-11] MEDS: Montelukast 10 MG Tab PO SCH (19:48)
[2020-07-11] MEDS: Simvastatin 40 MG Tab PO SCH (19:48)
[2020-07-11] MEDS: Warfarin 5 MG Tab PO SCH (19:48)
[2020-07-11] MEDS ORDERED: Magnesium Hydroxide 400 MG/5 ML Susp 30 ML Cup PO PRN (21:35)
[2020-07-12] MEDS: Levothyroxine 25 MCG Tab PO SCH (06:37)
[2020-07-12 07:05] LABS: ANION GAP 11.9 mmol/L (5-15)
[2020-07-12] MEDS: Budesonide 0.5 MG/2 ML Neb Susp INH SCH ×2 (07:12→20:05)
[2020-07-12] MEDS: Arformoterol 15 MCG/2 ML Neb Soln NEB SCH ×2 (07:12→20:04)
[2020-07-12] MEDS: Gabapentin 400 MG Cap PO SCH ×3 (08:29→20:05)
[2020-07-12] MEDS: Amoxicillin/Clavulanate K 875-125 MG Tab PO SCH ×2 (08:29→20:05)
[2020-07-12] MEDS: Cholecalciferol (Vitamin D3) 25 MCG Tab PO SCH (08:29)
[2020-07-12] MEDS: Lactobacillus Rhamnosus GG (Probiotic) Cap PO SCH (08:29)
[2020-07-12] MEDS: Chlorthalidone 25 MG Tab PO SCH ×2 (08:29→08:51)
[2020-07-12] MEDS: Acetaminophen 325 MG Tab PO PRN (08:30)
[2020-07-12] MEDS: Insulin Regular, Human 100 Units/ML 3 ML Vial SUBCUT SCH ×3 (08:35→17:46)
[2020-07-12] MEDS: Insulin Glarg,Human.Rec.Analog 100 Unit/ML SUBCUT SCH ×2 (08:35→20:06)
[2020-07-12] MEDS: Primidone 50 MG Tab PO SCH ×3 (08:35→20:05)
[2020-07-12] MEDS: EMPAGLIFLOZIN PO SCH (08:52)
--- NOTE | 2020-07-12 09:30 | PN ---
Progress Note for TONY PERDOMO Date: 07/12/2020 Room #: VM.214 SUBJECTIVE: This is hospital day #6 on an 85-year-old admitted from the clinic with lethargy, recurrent falls x5, leukocytosis and concern for pneumonia. He also had some incontinence of urine. He is denying any burning. His UA prior to admission was normal. He had been doing some coughing and x-ray confirmed pneumonia. He is supposed to have a swallow eval today. He has a history of Parkinson's, but denies any coughing or choking on food. He was quite constipated with no bowel movements for 5 days, but did have one last night. He denies any abdominal pain. He says he is chronically short of breath. He smoked, he quit like 40 years ago, but he is on nebulizers. He was on IV Zosyn, which was stopped on the . However, now, he has been having low-grade fevers. He has also had some right shoulder pain. He is unsure if he injured it in one of his falls. He does have diabetes and blood sugars have been running higher, he is on Jardiance and insulin. He was also in acute renal failure when he was admitted. OBJECTIVE: Vital Signs: His temperature is 99.5, T-max 99.8 at 10 p.m. last night; pulse 84; blood pressure 152/65; respiratory rate 18 and O2 of 92% on 3 liters. General: He is in no acute distress. Heart: Regular rate and rhythm. Lungs: Sounds are decreased in both bases with crackles in the left base. Abdomen: Nondistended. Positive bowel sounds. Soft, nontender. Extremities: Warm and dry. No edema. Mental Status: He is alert and orientated x3. Musculoskeletal: Right shoulder is examined. No effusion. No redness. No warmth. He is able to raise his shoulder up with full range of motion. LABORATORY DATA: Lab work shows white count up to 10.8, hemoglobin 12.8, platelets 178. INR 3. Sodium 138, potassium 3.9, chloride 102, bicarb 28, BUN 30, creatinine down to 1.3, glucose 100, calcium 8.6. ProBNP 357. ASSESSMENT: 1. Weakness with recurrent falls. We will get a CK level today. I will stop his statin. We will get him up and working with therapies. 2. Sepsis due to pneumonia possible aspiration. 3. Chronic obstructive pulmonary disease/asthma, chronic bronchitis with exacerbation due to pneumonia. He is not requiring any steroids. 4. Parkinson disease. 5. Type 2 diabetes, uncontrolled, on long-term insulin use. He is on Lantus. We will continue with same doses and see how his blood sugars do today. We will add meal insulin if needed. I will stop his Jardiance. 6. Essential hypertension, elevated. I will increase chlorthalidone. 7. Hypothyroidism, treated on medications. 8. Hyperlipidemia, I am stopping his statin. 9. History of blood clots. He is on Coumadin. We will ask pharmacy to manage dosing. PLAN: Today, the patient will be put back on antibiotics, oral Augmentin, to complete at least a 5 day course. We will get a bladder scan and straight cath for UA if he is unable to void. We will repeat his chest x-ray. We will continue with oxygen. We will continue his home medications and nebulizers. I will stop his statin. We will get him up and working with therapies and anticipate he will be stable for a longterm discharge as soon as tomorrow. We will adjust insulin as needed. MKA: 07/12/2020 08:54:53 MODL: 07/12/2020 09:26:36 /[id number] FAINA
--- NOTE | 2020-07-12 09:55 | CR ---
[id number] RAD/RAD Chest PA And Lateral EXAM: RAD Chest PA And Lateral INDICATION: HYPOXIA. COMPARISON: July 09, 2020. DISCUSSION: Cardiomediastinal silhouette is normal in size and contour. Mild amount of scarring, similar to the prior examination. No pleural effusion or pneumothorax. IMPRESSION: No acute findings. August Feldman MD 07/12/20 0954 Thank you for allowing us to participate in the care of your patient.
[2020-07-12 12:54] LABS: HEMOGLOBIN A1C 9.6 % (<5.7)
[2020-07-12] MEDS: metFORMIN 500 MG Tab PO SCH (17:45)
[2020-07-12] MEDS: Montelukast 10 MG Tab PO SCH (20:05)
[2020-07-12] MEDS: Warfarin 5 MG Tab PO SCH (20:05)
[2020-07-13] MEDS: Levothyroxine 25 MCG Tab PO SCH (06:01)
[2020-07-13] MEDS: Budesonide 0.5 MG/2 ML Neb Susp INH SCH (07:18)
[2020-07-13] MEDS: Arformoterol 15 MCG/2 ML Neb Soln NEB SCH (07:18)
[2020-07-13 07:51] LABS: ANION GAP 11.9 mmol/L (5-15)
[2020-07-13] MEDS: Amoxicillin/Clavulanate K 875-125 MG Tab PO SCH (08:03)
[2020-07-13] MEDS: Chlorthalidone 25 MG Tab PO SCH (08:03)
[2020-07-13] MEDS: Primidone 50 MG Tab PO SCH (08:04)
[2020-07-13] MEDS: metFORMIN 500 MG Tab PO SCH (08:06)
[2020-07-13] MEDS: Gabapentin 400 MG Cap PO SCH (08:06)
[2020-07-13] MEDS: Lactobacillus Rhamnosus GG (Probiotic) Cap PO SCH (08:06)
[2020-07-13] MEDS: Cholecalciferol (Vitamin D3) 25 MCG Tab PO SCH (08:06)
[2020-07-13] MEDS: Insulin Glarg,Human.Rec.Analog 100 Unit/ML SUBCUT SCH (08:07)
[2020-07-13] MEDS: Insulin Regular, Human 100 Units/ML 3 ML Vial SUBCUT SCH (08:12)
--- NOTE | 2020-07-13 12:49 | DISCH ---
PRIMARY DISCHARGE DIAGNOSES: 1. Right lower lobe pneumonia, likely aspiration. 2. Weakness and recurrent falls due to pneumonia. 3. Acute renal failure due to volume depletion and dehydration, resolved. 4. Delirium due to acute illness, improving. 5. Type 2 diabetes uncontrolled, on long-term insulin use. 6. Asthma and chronic obstructive pulmonary disease with exacerbation due to pneumonia. 7. Essential hypertension, not well controlled, starting on lisinopril. 8. Hyperlipidemia. 9. Hypothyroidism. 10.Elevated CK with likely rhabdomyolysis from recurrent falls, improved CK on discharge. 11.Moderate malnutrition. 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 REASON FOR ADMISSION: On the date of admission, this 85-year-old male came to the clinic. He was very weak and lethargic. He had a UA that was recently done and normal other than increased glucose. He had an evaluation with abdominal CT which did show the RLL infiltrate. He admitted he had been doing some coughing. He otherwise was started on IV Zosyn. He became afebrile. He was doing well. Zosyn was discontinued on the morning of the . By the , he was again having low-grade fevers and white count was going up, so oral Augmentin was started. The patient was weaned down to 2 L of oxygen and [facility] does [facility]. He was breathing well. He was not having any further coughing, no fevers, and overall was felt stable to return home. He was not needing any additional p.r.n. nebs. He is already on his scheduled nebs. He was on Jardiance, this was discontinued, and his blood sugars were running quite high, up into the 200s but his metformin and glipizide were held. He was on his 40 units twice daily of long-acting insulin and then his t.i.d. meal insulin was available. His metformin was restarted and increased up to a 1000 mg twice daily. The patient was having no bowel movements for about 5 days, but did have one prior to discharge. Otherwise, his INR was monitored, it was therapeutic at 2.8 on discharge. He continued with his same Coumadin. He also did not have his glipizide while he was inpatient, but this will be restarted on discharge. He had a followup urine test that was negative for any infection. He did not require any catheter. Discharging white count normal at 8.4, hemoglobin stable at 12.9. His creatinine was down to 1.3 on discharge. Potassium 3.9, blood sugar 144. Liver enzymes, alkaline phosphatase mildly elevated at 156, otherwise normal. Albumin 2.5. DISCHARGE PLANS AND INSTRUCTIONS: He will follow up with Dr. Willis on next jail rounds. He will have PT, OT, speech at [facility]. He was seen by Speech here, but their note is not available, but no dietary changes were made. He will be on Augmentin twice daily until the evening of 07/14/2020. He will have a BMP and INR in 1 week. We will increase that metformin to 1000 twice daily. He will be on his previous insulin doses. He will stop Jardiance. He will stop his statin due to the elevated CK. We increased chlorthalidone up to 25 mg daily due to elevated blood pressures and his proBNP was normal. We will do lisinopril 2.5 mg daily for blood pressure and diabetes. He will be on a probiotic for 2 weeks after finishing antibiotics and he may take Tylenol as needed for pain. He did have some right shoulder pain yesterday. He had good range of motion, it was improved today. PHYSICAL EXAMINATION: Vital Signs: On discharge included temperature of 97.8, pulse 90, blood pressure 148/76, respiratory rate 22, and O2 of 96% on 2 L. General: He is in no acute distress. Heart: Regular rate and rhythm. S1, S2 without murmur. Lungs: Lung sounds are clear to auscultation today without crackles or wheezes. Abdomen: Nondistended. Positive bowel sounds. Soft, nontender. Extremities: Warm and dry. No edema. Mental Status: He is alert and orientated x3. Greater than 30 minutes spent on this discharge process. MKA: 07/13/2020 09:05:58 MODL: 07/13/2020 12:17:15 /[id number] MTDD
== END 2020-07-13 10:30 | DRG 871 ==
LOC: VM.MS 15:27
PROVIDERS: ADMIT Family Medicine; ATTEND Physician Assistant
DX: A41.9 Sepsis, unspecified organism (principal); J69.0 Pneumonitis due to inhalation of food and vomit; N17.9 Acute kidney failure, unspecified; J44.1 Chronic obstructive pulmonary disease with (acute) exacerbation; J44.0 Chronic obstructive pulmonary disease with (acute) lower respiratory infection; J45.901 Unspecified asthma with (acute) exacerbation; I82.509 Chronic embolism and thrombosis of unspecified deep veins of unspecified lower extremity; E44.0 Moderate protein-calorie malnutrition; E86.0 Dehydration; E11.65 Type 2 diabetes mellitus with hyperglycemia; Z79.4 Long term (current) use of insulin; I10 Essential (primary) hypertension; E78.5 Hyperlipidemia, unspecified; E03.9 Hypothyroidism, unspecified; Z20.822 Contact with and (suspected) exposure to COVID-19; Z68.30 Body mass index [BMI] 30.0-30.9, adult; Z79.01 Long term (current) use of anticoagulants; T79.6XXA Traumatic ischemia of muscle, initial encounter; W18.30XA Fall on same level, unspecified, initial encounter; Y92.89 Other specified places as the place of occurrence of the external cause
CPT/HCPCS: 36415; 70450; 71045; 71046; 73560-LT; 74176; 80048; 80053; 81003; 82550; 82962; 83036; 83605; 83880; 84145; 84443; 85025; 85610; 86140; 87040; 92610-GN; 94640; 94760; 97110-GP; 97116-GP; 97163-GP; 97165-GO; 97530-GP; A9270-GY; J1815-GY; J2543; J3370; J7030; J7050; U0002

== ENCOUNTER 2020-07-30 11:46 | Inpatient (IN) | payer OTHER, MEDICARE ==
[2020-07-30] MEDS ORDERED: Sodium Chloride 0.9% 10 ML Syringe FLUSH PRN (12:06)
--- NOTE | 2020-07-30 13:01 | CR ---
[id number] RAD/RAD Chest PA or AP 1V EXAM: RAD Chest PA or AP 1V INDICATION: FEVER, FALL, R LOWER ANTERIOR PAIN COMPARISON: July 12, 2020. DISCUSSION: Cardiomediastinal silhouette is stable in size and contour. No infiltrate, effusion, pneumothorax, or edema. Low lung volumes with associated vascular crowding. No definite radiographic evidence of acute fracture. Old left clavicular fracture. IMPRESSION: No acute cardiopulmonary abnormality. Jose Parr DO 07/30/20 1300 Thank you for allowing us to participate in the care of your patient.
[2020-07-30 13:14] LABS: CHLORIDE,CL 96 mmol/L (98-107); SODIUM,NA 134 mmol/L (136-145)
[2020-07-30 13:34] LABS: ANION GAP 14.6 mmol/L (5-15)
--- NOTE | 2020-07-30 13:36 | EDM.PDOC ---
ED HPI GENERAL MEDICAL PROBLEM - General Chief Complaint: Fever Stated Complaint: ER VISIT Time Seen by Provider: 07/30/20 12:00 Source of Information: Reports: Patient History Limitations: Reports: No Limitations - History of Present Illness INITIAL COMMENTS - FREE TEXT/NARRATIVE: Pt. presents to ER via EMS. He is a resident at [facility]. He was apparently seen in rounds today by Dr. Willis who requested he be transferred here. Pt. fell this AM at approx. 0300. Staff states that he has been more weak recently which could have contributed to the fall. He has not been acting like himself. He has a history of aspiration pneumonia in the past. Staff states that he had a temp of 102.6 at the care center. He was given tylenol. Pt. states that he is feeling fine. Denies any cough or chest congestion. No sore throat. No nausea, vomiting or diarrhea. No rashes. No neck pain or headache. His only complaint today is of L anteriolateral rib pain from the fall this AM. Pt. was hospitalized last month for RLL pneumonia, lactic acidosis and weakness. He was in the hospital from 07/07 until 07/13. It was treated with zosyn and IV fluids. Labs, mental status, lactic acidosis and weakness gradually improved and he was discharged back to the long term. Blood cultures from that admission were negative. Covid 19 at that time were also negative. Onset: Today Location: Reports: Chest, Generalized Quality: Reports: Throbbing Severity: Moderate - Related Data Allergies Allergy/AdvReac Type Severity Reaction Status Date / Time bee venom protein (honey bee) Allergy Cannot Verified 07/30/20 13:16 Remember Home Meds: Home Meds Levothyroxine Sodium [Levoxyl] 12.5 mg PO ACBREAKFAST 08/01/17 [History] Montelukast Sodium 10 mg PO BEDTIME 08/01/17 [History] Primidone 150 mg PO TID 08/01/17 [History] Budesonide [Pulmicort] 2 ml INH BID 11/05/18 [History] Cholecalciferol (Vitamin D3) [Vitamin D3] 2,000 units PO DAILY 11/05/18 [History] Insulin Glargine,Hum.Rec.Anlog [Lantus Solostar] 40 unit SQ BEDTIME 11/05/18 [History] Albuterol Sulfate 2.5 mg NEB QID PRN 07/07/20 [History] Albuterol Sulfate [Albuterol Sulfate HFA] 2 inh PO QID PRN 07/07/20 [History] Arformoterol [Brovana] 15 mcg NEB BID 07/08/20 [History] Bicalutamide [Casodex] 50 mg PO DAILY 07/08/20 [History] EPINEPHrine [Epipen 2-David] 0.3 mg IM ASDIRECTED PRN 07/08/20 [History] Gabapentin [Neurontin] 400 mg PO TID 07/08/20 [History] Warfarin [Coumadin] 10 mg PO WE@1700 07/08/20 [History] Warfarin [Coumadin] 15 mg PO Q48H 07/08/20 [History] Acetaminophen [Tylenol] 650 mg PO Q4H PRN tablet 07/13/20 [Rx] Chlorthalidone 25 mg PO DAILY #30 07/13/20 [Rx] Docusate Sodium/Sennosides [Senna Plus] 1 tab PO BID PRN tablet 07/13/20 [Rx] lisinopriL [Lisinopril] 2.5 mg PO DAILY #30 tablet 07/13/20 [Rx] Bisacodyl [Laxative Suppository] 10 mg RC ASDIRECTED PRN 07/30/20 [History] Warfarin [Coumadin] 10 mg PO Q48H 07/30/20 [History] Warfarin [Coumadin] 15 mg PO TUTH@2000 07/30/20 [History] metFORMIN HCl [Metformin HCl] 1,000 mg PO BID 07/30/20 [History] Past Medical History Cardiovascular History: Reports: Blood Clots/VTE/DVT, Hypertension Respiratory History: Reports: Asthma, Bronchitis, Recurrent Genitourinary History: Reports: BPH, Prostate Disorder Neurological History: Reports: Other (See Below) Endocrine/Metabolic History: Reports: Diabetes, Type II, Hypothyroidism - Past Surgical History Oncologic Surgical History: Reports: None Social & Family History - Family History Family Medical History: No Pertinent Family History - Caffeine Use Caffeine Use: Reports: Coffee ED ROS GENERAL - Review of Systems Review Of Systems: See Below Constitutional: Reports: No Symptoms HEENT: Reports: No Symptoms Respiratory: Reports: Other (chest wall pain post fall) Cardiovascular: Reports: No Symptoms Endocrine: Reports: No Symptoms GI/Abdominal: Reports: No Symptoms : Reports: No Symptoms Musculoskeletal: Reports: No Symptoms Skin: Reports: No Symptoms Neurological: Reports: No Symptoms Psychiatric: Reports: No Symptoms Hematologic/Lymphatic: Reports: No Symptoms Immunologic: Reports: No Symptoms ED EXAM, GENERAL - Physical Exam Exam: See Below Exam Limited By: No Limitations General Appearance: Alert, WD/WN, No Apparent Distress Throat/Mouth: Normal Inspection, Normal Lips, Normal Oropharynx, Normal Voice, No Airway Compromise Head: Atraumatic, Normocephalic Neck: Normal Inspection, Supple, Non-Tender, Full Range of Motion Respiratory/Chest: No Respiratory Distress, Normal Breath Sounds, No Accessory Muscle Use, Other (R anteriolateral chest tenderness, pt. states is from fall. No ecchymosis. No crepitus.) Cardiovascular: Normal Peripheral Pulses, Regular Rate, Rhythm, No Edema, No JVD, No Murmur Peripheral Pulses: 4+: Radial (L) GI/Abdominal: Soft, Non-Tender, No Distention, No Mass (Male) Exam: Deferred Rectal (Males) Exam: Deferred Back Exam: Normal Inspection, Full Range of Motion Extremities: Normal Inspection, Non-Tender, No Pedal Edema, Normal Capillary Refill Neurological: Alert, Oriented, CN II-XII Intact, Normal Reflexes, No Motor/Sensory Deficits, Slow to Respond Psychiatric: Normal Affect, Normal Mood Skin Exam: Warm, Dry, Intact, Normal Color, No Rash Lymphatic: No Adenopathy Course - Vital Signs Last Recorded V/S: Last Vital Signs Temp 36.7 C 07/30/20 15:51 Pulse 107 H 07/30/20 15:51 Resp 18 07/30/20 15:51 BP 149/76 H 07/30/20 15:51 Pulse Ox 92 L 07/30/20 15:53 - Orders/Labs/Meds Orders: Active Orders 24 hr Category Date Time Status Patient Status [ADT] Routine ADT 07/30/20 16:37 Ordered CULTURE BLOOD [BC] Stat Lab 07/30/20 12:37 Received CULTURE BLOOD [BC] Stat Lab 07/30/20 12:40 Received LACTATE SEPSIS W/ REFLEX [CHEM] Stat Lab 07/30/20 16:31 Ordered LACTIC ACID [CHEM] Routine Lab 07/30/20 16:24 Ordered Sodium Chloride 0.9% [Saline Flush] Med 07/30/20 12:06 Active 10 ml FLUSH ASDIRECTED PRN Blood Culture x2 Reflex Set [OM.PC] Stat Oth 07/30/20 12:07 Ordered Peripheral IV Insertion Adult [OM.PC] Routine Oth 07/30/20 12:07 Ordered Medication Orders Sodium Chloride (Sodium Chloride 0.9% 10 Ml Syringe) 10 ml FLUSH ASDIRECTED PRN PRN Reason: Keep Vein Open Labs: Laboratory Tests 07/30/20 07/30/20 07/30/20 Range/Units 12:40 12:40 12:40 WBC 15.6 H (4.0-10.0) x10^3/uL RBC 4.47 L (4.5-6.0) x10^6/uL Hgb 14.3 (14.0-18.0) g/dL Hct 42.7 (40.0-52.0) % MCV 95.5 H (78.0-93.0) fL MCH 32.0 (26.0-32.0) pg MCHC 33.5 (32.0-36.0) g/dL RDW Coeff of Erik 13.2 (10.0-15.0) % Plt Count 288 (130-400) x10^3/uL Add Manual Diff Yes Neutrophils % (Manual) 77 (50-80) % Band Neutrophils % 3 (0-6) % Lymphocytes % (Manual) 11 L (25-50) % Monocytes % (Manual) 9 (2-11) % Platelet Estimate Adequate Anisocytosis 1+ slight H PT 35.6 H (9.9-12.5) SEC INR 3.2 (2.0-3.5) APTT (25.6-32.8) SEC Sodium 134 L (136-145) mmol/L Potassium 4.6 (3.5-5.1) mmol/L Chloride 96 L (98-107) mmol/L Carbon Dioxide 28 (21-32) mmol/L Anion Gap 14.6 (5-15) mmol/L BUN 14 (7-18) mg/dL Creatinine 1.2 (0.70-1.30) mg/dL Est Cr Clr Drug Dosing TNP Estimated GFR (MDRD) 58 Glucose 147 H (70-99) mg/dL Lactic Acid (0.4-2.0) mmol/L Calcium 9.0 (8.5-10.1) mg/dL Corrected Calcium 10.12 H (8.5-10.1) mg/dL Magnesium 1.4 L (1.8-2.4) mg/dL Total Bilirubin 0.6 (0.2-1.0) mg/dL AST 26 (15-37) U/L ALT 32 (16-63) U/L Alkaline Phosphatase 184 H (46-116) U/L C-Reactive Protein 11.0 H (<=0.9) mg/dL Total Protein 7.5 (6.4-8.2) g/dL Albumin 2.6 L (3.4-5.0) g/dL Globulin 4.9 Albumin/Globulin Ratio 0.53 Urine Color (YELLOW) Urine Appearance (CLEAR) Urine pH (5.0-8.0) Ur Specific Hastings Urine Protein (NEGATIVE) mg/dL Urine Glucose (UA) (NEGATIVE) mg/dL Urine Ketones (NEGATIVE) mg/dL Urine Occult Blood (NEGATIVE) Urine Nitrite (NEGATIVE) Urine Bilirubin (NEGATIVE) Urine Urobilinogen (0.2) EU/dL Ur Leukocyte Esterase (NEGATIVE) Influenza Type A RNA (NEGATIVE) Influenza Type B RNA (NEGATIVE) SARS-CoV-2 RNA (GWEN) (NEGATIVE) 07/30/20 07/30/20 07/30/20 Range/Units 12:40 12:40 13:28 WBC (4.0-10.0) x10^3/uL RBC (4.5-6.0) x10^6/uL Hgb (14.0-18.0) g/dL Hct (40.0-52.0) % MCV (78.0-93.0) fL MCH (26.0-32.0) pg MCHC (32.0-36.0) g/dL RDW Coeff of Erik (10.0-15.0) % Plt Count (130-400) x10^3/uL Add Manual Diff Neutrophils % (Manual) (50-80) % Band Neutrophils % (0-6) % Lymphocytes % (Manual) (25-50) % Monocytes % (Manual) (2-11) % Platelet Estimate Anisocytosis PT (9.9-12.5) SEC INR (2.0-3.5) APTT 41.2 H (25.6-32.8) SEC Sodium (136-145) mmol/L Potassium (3.5-5.1) mmol/L Chloride (98-107) mmol/L Carbon Dioxide (21-32) mmol/L Anion Gap (5-15) mmol/L BUN (7-18) mg/dL Creatinine (0.70-1.30) mg/dL Est Cr Clr Drug Dosing Estimated GFR (MDRD) Glucose (70-99) mg/dL Lactic Acid 2.5 H* (0.4-2.0) mmol/L Calcium (8.5-10.1) mg/dL Corrected Calcium (8.5-10.1) mg/dL Magnesium (1.8-2.4) mg/dL Total Bilirubin (0.2-1.0) mg/dL AST (15-37) U/L ALT (16-63) U/L Alkaline Phosphatase (46-116) U/L C-Reactive Protein (<=0.9) mg/dL Total Protein (6.4-8.2) g/dL Albumin (3.4-5.0) g/dL Globulin Albumin/Globulin Ratio Urine Color Yellow (YELLOW) Urine Appearance Clear (CLEAR) Urine pH 7.0 (5.0-8.0) Ur Specific Hastings 1.020 Urine Protein Negative (NEGATIVE) mg/dL Urine Glucose (UA) Negative (NEGATIVE) mg/dL Urine Ketones Trace H (NEGATIVE) mg/dL Urine Occult Blood Negative (NEGATIVE) Urine Nitrite Negative (NEGATIVE) Urine Bilirubin Negative (NEGATIVE) Urine Urobilinogen 2.0 H (0.2) EU/dL Ur Leukocyte Esterase Negative (NEGATIVE) Influenza Type A RNA (NEGATIVE) Influenza Type B RNA (NEGATIVE) SARS-CoV-2 RNA (GWEN) (NEGATIVE) 07/30/20 Range/Units 13:38 WBC (4.0-10.0) x10^3/uL RBC (4.5-6.0) x10^6/uL Hgb (14.0-18.0) g/dL Hct (40.0-52.0) % MCV (78.0-93.0) fL MCH (26.0-32.0) pg MCHC (32.0-36.0) g/dL RDW Coeff of Erik (10.0-15.0) % Plt Count (130-400) x10^3/uL Add Manual Diff Neutrophils % (Manual) (50-80) % Band Neutrophils % (0-6) % Lymphocytes % (Manual) (25-50) % Monocytes % (Manual) (2-11) % Platelet Estimate Anisocytosis PT (9.9-12.5) SEC INR (2.0-3.5) APTT (25.6-32.8) SEC Sodium (136-145) mmol/L Potassium (3.5-5.1) mmol/L Chloride (98-107) mmol/L Carbon Dioxide (21-32) mmol/L Anion Gap (5-15) mmol/L BUN (7-18) mg/dL Creatinine (0.70-1.30) mg/dL Est Cr Clr Drug Dosing Estimated GFR (MDRD) Glucose (70-99) mg/dL Lactic Acid (0.4-2.0) mmol/L Calcium (8.5-10.1) mg/dL Corrected Calcium (8.5-10.1) mg/dL Magnesium (1.8-2.4) mg/dL Total Bilirubin (0.2-1.0) mg/dL AST (15-37) U/L ALT (16-63) U/L Alkaline Phosphatase (46-116) U/L C-Reactive Protein (<=0.9) mg/dL Total Protein (6.4-8.2) g/dL Albumin (3.4-5.0) g/dL Globulin Albumin/Globulin Ratio Urine Color (YELLOW) Urine Appearance (CLEAR) Urine pH (5.0-8.0) Ur Specific Hastings Urine Protein (NEGATIVE) mg/dL Urine Glucose (UA) (NEGATIVE) mg/dL Urine Ketones (NEGATIVE) mg/dL Urine Occult Blood (NEGATIVE) Urine Nitrite (NEGATIVE) Urine Bilirubin (NEGATIVE) Urine Urobilinogen (0.2) EU/dL Ur Leukocyte Esterase (NEGATIVE) Influenza Type A RNA Negative (NEGATIVE) Influenza Type B RNA Negative (NEGATIVE) SARS-CoV-2 RNA (GWEN) Negative (NEGATIVE) Meds: Medications Generic Name Dose Route Start Last Admin Trade Name Freq PRN Reason Stop Dose Admin Sodium Chloride 10 ml 07/30/20 12:06 Sodium Chloride 0.9% 10 Ml Syringe FLUSH ASDIRECTED PRN Keep Vein Open Discontinued Medications Generic Name Dose Route Start Last Admin Trade Name Chatoq PRN Reason Stop Dose Admin Piperacillin Sod/Tazobactam 100 mls @ 200 mls/hr 07/30/20 15:28 07/30/20 15:46 Sod 3.375 gm/ Sodium Chloride IV 07/30/20 15:57 200 mls/hr STAT ONE Administration Iopamidol 100 ml 07/30/20 15:04 07/30/20 15:05 Iopamidol 612 Mg/Ml 100 Ml Bottle IVPUSH 07/30/20 15:05 100 ml ONETIME ONE Administration - Radiology Interpretation Free Text/Narrative:: chest x-ray negative for pneumonia/infiltrate. CT chest, abdomen and pelvis were obtained. Evidence of acute cholecystitis noted. Free fluid surrounding the gallbladder and between liver and diaphragm noted. No infiltrate noted. No abscess or other source of infection noted. Departure - Departure Time of Disposition: 16:41 Disposition: DC/Tfer to [facility] 02 Clinical Impression: Cholecystitis - Discharge Information Referrals: Lidia Willis DO [Primary Care Provider] - Forms: ED Department Discharge Sepsis Event Note (ED) - Evaluation Sepsis Screening Result: No Definite Risk - Focused Exam Vital Signs: Vital Signs Temp Pulse Resp BP Pulse Ox 07/30/20 15:53 92 L 07/30/20 15:51 36.7 C 107 H 18 149/76 H 88 L 07/30/20 14:25 36.6 C 84 14 167/81 H 95 07/30/20 12:51 36.8 C 96 18 159/77 H 98 07/30/20 11:46 36.8 C 84 18 158/73 H 91 L - Problem List Review Problem List Initiated/Reviewed/Updated: Yes - My Orders Last 24 Hours: My Active Orders 07/30/20 12:06 Sodium Chloride 0.9% [Saline Flush] 10 ml FLUSH ASDIRECTED PRN 07/30/20 12:07 Blood Culture x2 Reflex Set [OM.PC] Stat Peripheral IV Insertion Adult [OM.PC] Routine 07/30/20 12:37 CULTURE BLOOD [BC] Stat 07/30/20 12:40 CULTURE BLOOD [BC] Stat 07/30/20 16:24 LACTIC ACID [CHEM] Routine 07/30/20 16:31 LACTATE SEPSIS W/ REFLEX [CHEM] Stat 07/30/20 16:37 Patient Status [ADT] Routine - Assessment/Plan Last 24 Hours: My Active Orders 07/30/20 12:06 Sodium Chloride 0.9% [Saline Flush] 10 ml FLUSH ASDIRECTED PRN 07/30/20 12:07 Blood Culture x2 Reflex Set [OM.PC] Stat Peripheral IV Insertion Adult [OM.PC] Routine 07/30/20 12:37 CULTURE BLOOD [BC] Stat 07/30/20 12:40 CULTURE BLOOD [BC] Stat 07/30/20 16:24 LACTIC ACID [CHEM] Routine 07/30/20 16:31 LACTATE SEPSIS W/ REFLEX [CHEM] Stat 07/30/20 16:37 Patient Status [ADT] Routine Plan: Pt. was given Zosyn 3.375gm in ER. Discussed findings with Dr. Cardona and with patient, his , Janelle, and his PCP, Dr. Willis. Pt. will be admitted to our facility acutely. He is at high risk for complication, given his complex medical history. Dr. Hopper will be admitting. Pt. states that he has no interest in being transferred or undergoing surgery. He was quite adamant about this. Pt. states that she agrees with this. Pt. is a code 2, DNR, DNI.
[2020-07-30 14:28] LABS: CORONAVIRUS COVID-19 NAA NEGATIVE (NEGATIVE)
[2020-07-30] MEDS ORDERED: Iopamidol 612 MG/ML 100 ML Bottle IVPUSH ONE (15:04)
--- NOTE | 2020-07-30 15:26 | CT ---
[id number] CT/CT Chest Abdomen Pelvis W IV Exam: CT Chest Abdomen Pelvis W IV Clinical Data: FEVER OF UNKNOWN ORIGIN COMPARISON: CORRELATION IS MADE WITH THE CAT SCAN OF JULY 07, 2020 FINDINGS: There is atelectasis at the lung bases There is no mediastinal mass or adenopathy The gallbladder is distended There is fluid surrounding the gallbladder There is fluid under the diaphragm between the liver and diaphragm Report called at time of dictation The kidneys, adrenals, aorta, and pancreas are unremarkable as is also the spleen There is no free fluid or free air. The pelvis shows no mass or adenopathy IMPRESSION: ACUTE CHOLECYSTITIS David Echevarria MD 07/30/20 8472 Thank you for allowing us to participate in the care of your patient.
[2020-07-30] MEDS ORDERED: Piperacillin/Tazobactam 3.375 GM in Sodium Chloride 0.9% 100 ML IV ONE (15:28)
[2020-07-30] MEDS ORDERED: HYDROmorphone 0.5 MG/0.5 ML Syringe IVPUSH PRN (17:06)
[2020-07-30] MEDS ORDERED: Ondansetron 4 MG/2 ML SDV IV PRN (17:06)
[2020-07-30] MEDS ORDERED: Non-Formulary Medication 1 Each (Albuterol Sulfate 8.5 GM Inhaler) PO PRN (17:15)
[2020-07-30] MEDS ORDERED: Sodium Chloride 0.9% 1,000 ML IV SCH (17:15)
[2020-07-30] MEDS ORDERED: EPINEPHrine 1 MG/1 ML Amp IM PRN (17:15)
[2020-07-30] MEDS ORDERED: Acetaminophen 325 MG Tab PO PRN (17:20)
[2020-07-30] MEDS ORDERED: Dextrose 5%-0.9% NaCl 1,000 ML IV SCH (17:30)
[2020-07-30] MEDS: Dextrose 5%-0.9% NaCl 1,000 ML IV SCH (17:55)
[2020-07-30] MEDS ORDERED: 50% Dextrose in Water 50 ML Syringe IV PRN (18:02)
[2020-07-30] MEDS ORDERED: Glucagon,Human Recombinant 1 MG Vial IM PRN (18:02)
[2020-07-30] MEDS ORDERED: Montelukast 10 MG Tab PO SCH (20:00)
[2020-07-30] MEDS ORDERED: Warfarin 5 MG Tab PO SCH ×2 (20:00)
[2020-07-30] MEDS ORDERED: Insulin Glarg,Human.Rec.Analog 100 Unit/ML SUBCUT SCH (20:00)
[2020-07-30] MEDS: Albuterol 0.083% 2.5 MG/3 ML Neb Soln NEB PRN (20:37)
[2020-07-30] MEDS: Arformoterol 15 MCG/2 ML Neb Soln NEB SCH (20:37)
[2020-07-30] MEDS: Budesonide 0.5 MG/2 ML Neb Susp INH SCH (20:37)
[2020-07-30] MEDS: Magnesium Oxide 400 MG Tab PO SCH ×2 (20:41)
[2020-07-30] MEDS: Gabapentin 400 MG Cap PO SCH (20:41)
[2020-07-30] MEDS: Primidone 50 MG Tab PO SCH (20:41)
[2020-07-30] MEDS: Piperacillin/Tazobactam 3.375 GM in Sodium Chloride 0.9% 100 ML IV SCH (23:07)
--- NOTE | 2020-07-31 00:04 | HP ---
CHIEF COMPLAINT: Fever. HISTORY OF PRESENT ILLNESS: The patient is an 85-year-old patient of Dr. Lidia Doherty at [facility], who presented to the emergency room with weakness and fever. He had had a fall during the night and had right-sided pain. He was seen by JAMES Parker in the emergency room. Workup showed cholecystitis with no rib fractures. Due to patient's elderly nature with multiple medical health problems, surgeon was consulted as well as family and they decided on no aggressive treatment such as surgery and felt that IV antibiotics would be most appropriate. It was noted his lactic acid was elevated at 2.4, white blood cell count 15.6, CRP 11. He was started on Zosyn. The patient is a poor historian and cannot give much details of his history. MEDICATIONS: He is currently on albuterol 2 puffs q.4 hours p.r.n. shortness of breath; albuterol nebs 1 vial nebulizer p.r.n. shortness of breath; bicalutamide 50 mg 1 pill daily; bisacodyl suppository 10 mg daily p.r.n. constipation; Brovana 2 mL inhaled twice a day; chlorthalidone 25 mg 1 pill a day; Coumadin he takes 10 mg on Sunday, Tuesdays, , and Fridays, 15 mg on Sunday, Wednesdays and Saturdays; he is on EpiPen p.r.n. allergic reaction; gabapentin 400 mg 3 times a day; Lantus 40 units subcu once a day; levothyroxine 12.5 mcg a day; lisinopril 2.5 mg 1 pill a day; metformin 1000 mg twice a day; primidone 150 mg 3 times a day; Pulmicort 2 mL twice a day of 0.5/2 mL; Sarna lotion p.r.n., Senna Plus tablets 1 pill a day as needed for constipation; Singulair 10 mg daily; Tylenol 650 q.4 hours p.r.n.; vitamin D 2000 units daily. ALLERGIES: Bee stings. PAST MEDICAL HISTORY: The patient has mild asthma, prostate cancer, hypertension, chronic embolism and thrombosis of left popliteal vein, he has essential tremor, type 2 diabetes mellitus, hypothyroidism, Parkinson disease, vitamin D deficiency, BPH, cognitive dysfunction, male erectile dysfunction. The patient had been hospitalized recently for pneumonia. PAST SURGICAL HISTORY: He has had a TURP in 01/30/2020, as well as an appendectomy. FAMILY MEDICAL HISTORY: Both parents are , otherwise noncontributory. SOCIAL HISTORY: The patient is . He is a former smoker. He is a resident of [facility], he entered on 02/11/2020. 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 He is a [employer] connected with the [employer]. He had previously smoked, I am not sure in which year he quit. REVIEW OF SYSTEMS: The patient is not much contributory. Apparently, he walks with a cane with assist of one. He has had some swallowing difficulties recently. He did have a swallowing study done on 07/19/2020, which came back saying please read speech pathologist report which is not available to me right now. The patient has had problems with bladder and he is forgetful. He has had an abrasion on his right elbow that has been healing up for some time and has been dressed. PHYSICAL EXAMINATION: Vital Signs: Temperature on presentation was 36.8, pulse was 84, blood pressure was 158/73, respirations were 18, saturations were 91 on 2 L. General:Alert, calm Skin His skin is pale, warm, and dry. He has an abrasion on his right elbow as well as his left forearm. HEENT His mucous membranes are dry. KARLEE. Pharynx no injection. No cervical lymphadenopathy Heart: Regular rate and rhythm without murmurs or bruits. Lungs: Clear to auscultation. Abdomen: Reduced bowel sounds. Abdomen is soft. He has slight tenderness in his right upper quadrant. No guarding. No rebound. Extremities: Lower extremities have no edema. He does have some mild tremor at rest. Neurologic: He is hard of hearing. Psychiatric: The patient is forgetful. LABORATORY DATA: His lab came back with his white blood cell count 15.6, hemoglobin 14.3, platelets 288, with 77 segs, 3 bands. INR was 3.2. Sodium was 143, potassium 4.6, creatinine 1.2, GFR 58, BUN 14, glucose 147. Lactic acid initially was 2.5 and then was 3.0 when checked 4 hours later. Calcium 9.0, magnesium 1.4, total bilirubin 0.6, AST 26, ALT 32, alkaline phosphatase 184. CRP 11. Total protein 7.5, albumin 2.6. Urinalysis came back, specific gravity 1.020 with some urobilinogen, negative nitrites as well as leukocyte esterase. Influenza A was negative, influenza B was negative. COVID was negative. Chest x-ray came back showing no acute cardiopulmonary abnormality. CT scan of chest, abdomen, and pelvis came back showing gallbladder distended with fluid surrounding gallbladder. Otherwise, no other abnormalities. So, acute cholecystitis. Discussion was held with Roldan RAMIREZ in the emergency room with surgeon at [facility], and they had opted on conservative treatment with no surgery and IV antibiotics to be used here. The patient's code level status is do not resuscitate/do not intubate. IMPRESSION: 1. Sepsis. 2. Acute cholecystitis. 3. Dehydration. 4. Weakness. 5. Parkinson's. 6. Cognitive dysfunction. 7. Hypomagnesemia. 8. Type 2 diabetes mellitus. 9. Asthma. 10.Prostate cancer. 11.Malnutrition. PLAN: The patient will be admitted to acute care. He will be placed on Zosyn. We will have Pharmacy help dose depending on his renal function. INR will need to be monitored. So, he therefore does not need Lovenox since he is already anticoagulated with Coumadin. The patient will receive IV hydration, also supplement his magnesium. To note, due to patient's age and frailty, he may with his current problems. If he stabilizes, then hopeful intent would be that he could return back to the care center. We will give him IV fluids because of dehydration, as well as cholecystitis and advance diet as tolerated. We will be monitoring his blood sugars for his diabetes. We will offer supplemental p.r.n. insulin as well on sliding scale. Over 30 minutes of time was spent during admission H and P. GM07/30/2020 17:47:07 MODL: 07/30/2020 23:55:31 /[id number] FAINA
[2020-07-31] MEDS: Dextrose 5%-0.9% NaCl 1,000 ML IV SCH ×2 (02:05→10:29)
[2020-07-31] MEDS: Arformoterol 15 MCG/2 ML Neb Soln NEB SCH (06:33)
[2020-07-31] MEDS: Budesonide 0.5 MG/2 ML Neb Susp INH SCH (06:35)
[2020-07-31] MEDS ORDERED: Levothyroxine 25 MCG Tab PO SCH (07:00)
[2020-07-31] MEDS: Gabapentin 400 MG Cap PO SCH (07:38)
[2020-07-31] MEDS: Piperacillin/Tazobactam 3.375 GM in Sodium Chloride 0.9% 100 ML IV SCH (07:38)
[2020-07-31] MEDS: Magnesium Oxide 400 MG Tab PO SCH (07:40)
[2020-07-31] MEDS: Primidone 50 MG Tab PO SCH (07:40)
[2020-07-31] MEDS ORDERED: Chlorthalidone 25 MG Tab PO SCH (08:00)
[2020-07-31] MEDS ORDERED: Non-Formulary Medication 1 Each (Bicalutamide [Casodex] 50 MG Tablet) PO SCH (08:00)
[2020-07-31] MEDS ORDERED: Bisacodyl 10 MG Supp RECTAL SCH (08:00)
[2020-07-31] MEDS ORDERED: Lisinopril 2.5 MG Tab PO SCH (08:00)
[2020-07-31] MEDS ORDERED: Insulin Lispro 100 Units/ML 3 ML Vial SUBCUT SCH (08:00)
[2020-07-31 08:25] LABS: ANION GAP 14.1 mmol/L (5-15)
[2020-07-31] MEDS: Albuterol 0.083% 2.5 MG/3 ML Neb Soln NEB PRN (08:30)
--- NOTE | 2020-07-31 08:39 | PN ---
Progress Note for TONY PERDOMO Date: 07/31/2020 Room #: VM.215 SUBJECTIVE: This is patient's second hospitalization day for being admitted with acute cholecystitis with dehydration and sepsis. He has had an uneventful night and he does not feel like eating, but he has not had much for pain. He has been quite relaxed, which is good. No other concerns have been noted. OBJECTIVE: Vital Signs: His temperature max was 37.2 on admit, now it is 36.8. His blood pressure is 102/46, pulse have been up to 108 max, now it is down to 100. His respiratory rate is 18, saturations are 93% on 2 L. General: The patient does arise when I enter room. He is somewhat quiet. He denies pain. He does not feel like eating. Heart: Regular rate and rhythm without murmurs or bruits. Lungs: Have some inspiratory wheezes on bases. Abdomen: Bowel sounds are present. It is soft, nontender. Extremities: He does have abrasions that are dressed on his forearms. His Accu-Cheks have ranged from 250s to 230s this morning. His white blood cell count came back slightly elevated at 16.7, hemoglobin 12.3, felt to be somewhat dilutional. Platelets are 255, he has 73 segs, 7 lymphocytes, 13 monocytes. His lactic acid had peaked at 3.0 prior to his admission, has gone down to 2.3 last evening. Remainder of blood work is pending today. IMPRESSION: 1. Sepsis. 2. Acute cholecystitis. 3. Dehydration. 4. Weakness. 5. Parkinson's. 6. Cognitive dysfunction. 7. Hypomagnesemia. 8. Type 2 diabetes mellitus. 9. Asthma. 10.Malnutrition. 11.Prostate cancer. PLAN: We will continue IV fluids on the patient. We will allow his diet to be advanced as tolerated. We will continue to hold the metformin and use the insulin sliding scale as well as his long-acting insulin. His Casodex was also held yesterday, and we will monitor his INRs as well. We will check lab work tomorrow as well. GM07/31/2020 08:13:25 MODL: 07/31/2020 08:32:15 /[id number]
--- NOTE | 2020-07-31 10:13 | PCM.SN.2 ---
- Free Text/Narrative Note: Spoke with Family , Ian SINGER at 9:40 am and he stated that family is requesting transfer to [facility]. I spoke with Dr Patten, hospitalist emanations analysis technician and he did accept pt at 10:10 am
--- NOTE | 2020-07-31 11:10 | DISCH ---
PRIMARY DIAGNOSES: 1. Sepsis. 2. Acute cholecystitis. 3. Dehydration. 4. Hypomagnesemia. 5. Cognitive dysfunction. 6. Parkinsonism. 7. Type 2 diabetes mellitus, on insulin. 8. Asthma, mild, persistent. 9. Malnutrition. 10.History of prostate cancer. SUMMARY OF ADMIT HISTORY AND PHYSICAL: The patient is an 85-year-old resident of [facility] who presented yesterday to the emergency room with a fall and right-sided pain. He was found by CT scan of his abdomen, chest, and pelvis to have acute cholecystitis with elevated white blood cell count 15.6, lactic acid elevated at 2.5, CRP elevated at 11.0. Urine was normal. COVID was negative. Influenza A testing, influenza B testing were also negative. Conversation at the time of admit was with surgeon in [place] and they elected due to his medical problems to do medical therapy with IV piperacillin. SUMMARY OF HOSPITAL COURSE: His white blood cell count had gone up to 16.7 with 73 segs, 7 lymphs, monos 19. His INR was elevated at 4.6. His lactic acid had gone up to 3.0 four hours after admission, then down to 2.3, and then back up to 2.6. The morning of transfer, his alkaline phosphatase was elevated at 134, but other LFTs were normal. His CRP had gone from 11.0 on admission up to 27.4. His albumin had dropped from 2.6 down to 1.8. Lipase was normal at 38. Urinalysis had come back normal. He did receive Dilauidid for RUQ pain morning of .Family, because of worsening parameters, had requested that the patient be transferred to [place]. On physical exam, his abdomen did have bowel sounds. He did have some mild right upper quadrant tenderness, but no guarding or rebound. His vital signs at transfer were temperature 97.8, blood pressure 100/48, respirations 16, pulse 82, saturations are 95% on 2 L. The patient had been given D5 normal saline for IV infusion, had been placed on oral magnesium as his magnesium level had come back low at 1.4. The patient was being given Zofran for nausea. His Coumadin was held when it was noted that his levels had come back high. I did visit with his son, Ian at 9:40 in the morning, and he had conferred with other family members that they were interested in having the patient transferred to a higher level of care. At 10 o'clock a.m., I did talk with [facility] and Dr. Patten, hospitalist at [facility] in [place], and he did accept the patient at 10:10. Arrangements were made for transfer. To note while he was hospitalized, his metformin had been held as well as his Casodex. MEDICATIONS: His medications at the time of transfer are montelukast 10 mg 1 pill at bedtime, levothyroxine 12.5 mcg 1 pill daily, primidone 150 mg 3 times a day. He had been on insulin glargine 40 units subcu at bedtime which is actually to have continued. Vitamin D 2000 units daily, Pulmicort 0.4 mg per 2 mL takes 2 mL b.i.d., albuterol inhalation 2 puffs q.i.d. p.r.n., albuterol nebs 2.5 q.i.d. p.r.n., Neurontin 400 mg 3 times a day, EpiPen p.r.n. allergic reaction. His Coumadin had been held at the time of transfer. Some Brovana 15 mcg neb twice a day. Casodex was held at the time of transfer at 50 mg daily. Some lisinopril 2.5 mg daily, Senna Plus 1 pill twice a day as needed for constipation, Tylenol 650 q.4 hours p.r.n., chlorthalidone 25 mg tablet daily, Sarna lotion p.r.n., bisacodyl suppository 10 mg daily p.r.n. He was on D5 normal saline at 125 mL/hour, hydromorphone, Dilaudid 0.25 mg IV q.2 hours p.r.n., glargine 40 units subcu at bedtime, magnesium oxide 400 mg 1 pill twice a day, Zofran 4 mg IV q.6 hours p.r.n., and Zosyn 3.375 g q.8 hours. The patient's code level status is do not resuscitate/do not intubate. To note, the patient could potentially of his septic condition. Over 30 minutes time was spent doing discharge of patient with talking to family, talking to specialist, arranging for transfer, and reassessing the patient. GM07/31/2020 10:28:38 MODL: 07/31/2020 11:01:25 /[id number] FAINA
[2020-07-31] MEDS ORDERED: Warfarin 5 MG Tab PO SCH ×2 (20:00)
[2020-08-04] MEDS ORDERED: WARFARIN 10 MG PO SCH (17:00)
== END 2020-07-31 11:20 | disposition short-term general hospital (02) | DRG 872 ==
LOC: VM.ED 11:46 → VM.MS 16:37
PROVIDERS: ADMIT Family Medicine; ATTEND Internal Medicine
DX: A41.9 Sepsis, unspecified organism (principal); K81.0 Acute cholecystitis; E46 Unspecified protein-calorie malnutrition; E86.0 Dehydration; E83.42 Hypomagnesemia; Z66 Do not resuscitate; G20 Parkinson's disease; K81.9 Cholecystitis, unspecified; J45.30 Mild persistent asthma, uncomplicated; Z91.030 Bee allergy status; I10 Essential (primary) hypertension; E55.9 Vitamin D deficiency, unspecified; J45.909 Unspecified asthma, uncomplicated; N52.9 Male erectile dysfunction, unspecified; N40.0 Benign prostatic hyperplasia without lower urinary tract symptoms; Z85.46 Personal history of malignant neoplasm of prostate; E03.9 Hypothyroidism, unspecified; E11.9 Type 2 diabetes mellitus without complications; Z79.01 Long term (current) use of anticoagulants; Z79.890 Hormone replacement therapy; Z90.49 Acquired absence of other specified parts of digestive tract; Z87.891 Personal history of nicotine dependence; Z79.4 Long term (current) use of insulin; Z79.51 Long term (current) use of inhaled steroids; Z79.899 Other long term (current) drug therapy; Z20.822 Contact with and (suspected) exposure to COVID-19
CPT/HCPCS: 0240U; 36415; 71045; 71260; 74177; 80053; 81003; 82962; 83605; 83690; 83735; 85025; 85610; 85730; 86140; 87040; 94640; 96365; 99284; 99285-25; A9270-GY; J1170; J1815-GY; J2543; J7042; J7613-GY; Q9967

== ENCOUNTER 2020-09-05 22:29 | Emergency (ER) | payer OTHER, MEDICAID ==
--- NOTE | 2020-09-05 23:11 | EDM.PDOC ---
ED HPI GENERAL MEDICAL PROBLEM - General Chief Complaint: Laceration Stated Complaint: HEAD LACERATION Time Seen by Provider: 09/05/20 23:03 Source of Information: Reports: Patient, EMS, Shelter Records History Limitations: Reports: No Limitations - History of Present Illness INITIAL COMMENTS - FREE TEXT/NARRATIVE: Patient states he was getting out of bed to get a pillow slipped fell hit the side of a heater radiator he denies any LOC any vision changes or any headache states he feels fine and do not know why he was brought to ER . Patient has no other complaints he is alert and oriented normal conversation follows all commands has logical thought process Onset: Today Duration: Hour(s): Location: Reports: Head Associated Symptoms: Reports: No Other Symptoms. Denies: Confusion, Headaches, Nausea/Vomiting, Seizure, Shortness of Breath, Weakness - Related Data Allergies Allergy/AdvReac Type Severity Reaction Status Date / Time bee venom protein (honey bee) Allergy Cannot Verified 09/05/20 23:08 Remember Home Meds: Home Meds Levothyroxine Sodium [Levoxyl] 12.5 mcg PO ACBREAKFAST 08/01/17 [History] Montelukast Sodium 10 mg PO BEDTIME 08/01/17 [History] Primidone 150 mg PO TID 08/01/17 [History] Budesonide [Pulmicort] 2 ml INH BID 11/05/18 [History] Cholecalciferol (Vitamin D3) [Vitamin D3] 2,000 units PO DAILY 11/05/18 [History] Albuterol Sulfate 2.5 mg NEB QID PRN 07/07/20 [History] Albuterol Sulfate [Albuterol Sulfate HFA] 2 inh PO QID PRN 07/07/20 [History] Arformoterol [Brovana] 15 mcg NEB BID 07/08/20 [History] EPINEPHrine [Epipen 2-David] 0.3 mg IM ASDIRECTED PRN 07/08/20 [History] Gabapentin [Neurontin] 400 mg PO TID 07/08/20 [History] Acetaminophen [Tylenol] 650 mg PO Q4H PRN tablet 07/13/20 [Rx] Chlorthalidone 25 mg PO DAILY #30 07/13/20 [Rx] Docusate Sodium/Sennosides [Senna Plus] 1 tab PO BID PRN tablet 07/13/20 [Rx] lisinopriL [Lisinopril] 2.5 mg PO DAILY #30 tablet 07/13/20 [Rx] Bisacodyl [Laxative Suppository] 10 mg RC ASDIRECTED PRN 07/30/20 [History] Bisacodyl [Laxative Suppository] 10 mg RC DAILY PRN 07/30/20 [History] Menthol/Camphor [Sarna Anti-Itch] 1 applic TOP BID 07/30/20 [History] Dextrose 5%-0.9% NaCl [Dextrose 5%-Normal Saline] 125 ml IV ASDIRECTED bag 07/31/20 [Rx] HYDROmorphone [Dilaudid] 0.25 mg IVPUSH Q2H PRN syringe 07/31/20 [Rx] Insulin Glarg,Human.Rec.Analog [Lantus] 40 unit SUBCUT BEDTIME ml 07/31/20 [Rx] Magnesium Oxide 400 mg PO BID tablet 07/31/20 [Rx] Ondansetron [Zofran] 4 mg IV Q6H PRN vial 07/31/20 [Rx] Piperacillin/Tazobactam [Zosyn] 3.375 gm IV Q8H vial 07/31/20 [Rx] Past Medical History Cardiovascular History: Reports: Blood Clots/VTE/DVT, Hypertension Respiratory History: Reports: Asthma, Bronchitis, Recurrent Genitourinary History: Reports: BPH, Prostate Disorder Neurological History: Reports: Other (See Below) Endocrine/Metabolic History: Reports: Diabetes, Type II, Hypothyroidism - Past Surgical History Oncologic Surgical History: Reports: None Social & Family History - Family History Family Medical History: No Pertinent Family History - Caffeine Use Caffeine Use: Reports: Coffee ED ROS GENERAL - Review of Systems Review Of Systems: See Below Constitutional: Reports: No Symptoms HEENT: Reports: No Symptoms Respiratory: Reports: No Symptoms Cardiovascular: Reports: No Symptoms Endocrine: Reports: No Symptoms GI/Abdominal: Reports: No Symptoms : Reports: No Symptoms Musculoskeletal: Reports: No Symptoms Neurological: Denies: Confusion, Dizziness, Headache, Numbness, Trouble Speaking, Weakness Psychiatric: Reports: No Symptoms Hematologic/Lymphatic: Reports: No Symptoms Immunologic: Reports: No Symptoms ED EXAM, SKIN/RASH Exam: See Below Exam Limited By: No Limitations General Appearance: Alert, WD/WN, No Apparent Distress Eye Exam: Bilateral Eye: EOMI, Normal Inspection, PERRL Ears: Normal External Exam, Normal Canal, Hearing Grossly Normal, Normal TMs Nose: Normal Inspection, Normal Mucosa, No Blood, Other Throat/Mouth: Normal Inspection, Normal Lips, Normal Teeth, Normal Oropharynx, Normal Voice, No Airway Compromise Head: Atraumatic, Normocephalic, Other (Negative tenderness to palpation over the sinus cavities). No: Facial Swelling, Facial Tenderness, Sinus Tenderness Neck: Normal Inspection, Supple, Non-Tender, Full Range of Motion Respiratory/Chest: No Respiratory Distress, Lungs Clear, Normal Breath Sounds, No Accessory Muscle Use, Chest Non-Tender Cardiovascular: Normal Peripheral Pulses, Regular Rate, Rhythm, No Edema, No Gallop, No JVD, No Murmur, No Rub GI/Abdominal: Normal Bowel Sounds, Soft, Non-Tender, No Organomegaly, No Distention, No Abnormal Bruit Back Exam: Normal Inspection, Full Range of Motion Extremities: Normal Inspection, Normal Range of Motion, Non-Tender, No Pedal Edema, Normal Capillary Refill Neurological: Alert, Oriented, CN II-XII Intact, Normal Cognition, Normal Reflexes, No Motor/Sensory Deficits, Other (Cranial nerves II through XII are intact patient has equal child therapist bilateral strength is 5 of 5 upper lower extremity follows all commands answering questions appropriately he is neurologically intact) Psychiatric: Normal Affect Skin: Warm, Dry, Intact, Normal Color, No Rash Location, Skin: Head, Other Front/Back Body Diagram: 1 - 5 cm by half centimeter laceration the area was irrigated with Hibiclens normal saline and closed with number of 7 corinne dressed with Neosporin Telfa pad Curlex Course - Vital Signs Text/Narrative:: laceration the area was irrigated with Hibiclens normal saline and closed with number of 7 corinne dressed with Neosporin Telfa pad Curlex Patient was rechecked and neurologically intact following all commands and answers all questions appropriately INR within normal limits CT head no acute findings - Orders/Labs/Meds Orders: Active Orders 24 hr Category Date Time Status Head wo Cont [CT] Stat Exams 09/05/20 23:04 Taken Labs: Laboratory Tests 09/05/20 Range/Units 22:58 PT 18.0 H D (9.9-12.5) SEC INR 1.6 L (2.0-3.5) Departure - Departure Time of Disposition: 23:45 Disposition: DC/[facility] to [facility] Condition: Good Clinical Impression: Laceration of head - Discharge Information *PRESCRIPTION DRUG MONITORING PROGRAM REVIEWED*: No *COPY OF PRESCRIPTION DRUG MONITORING REPORT IN PATIENT PAPA: No Instructions: Laceration Care, Adult, [id number] Referrals: PCP,Unknown [Primary Care Provider] - Forms: ED Department Discharge Additional Instructions: pt returned to [place] remove corinne in 7 days keep the laceration dry and clean with soap and water daily Follow-up with primary care provider in the next 24 hours Return to the ER if anything changes watch for any signs symptoms for Head injury Such as change in behavior headache nausea vomiting vision changes anything that is abnormal for this gentleman's characteristics Patient is to have neuro checks every 2 hours for the next 8 hours shift - Problem List & Annotations (1) Laceration of head SNOMED Code(s): 105073645 Code(s): S01.91XA - LACERATION W/O FOREIGN BODY OF UNSP PART OF HEAD, INIT Status: Acute Current Visit: Yes - My Orders Last 24 Hours: My Active Orders 09/05/20 23:04 Head wo Cont [CT] Stat - Assessment/Plan Last 24 Hours: My Active Orders 09/05/20 23:04 Head wo Cont [CT] Stat
--- NOTE | 2020-09-06 07:58 | CT ---
[id number] CT/CT Head WO IV EXAM: CT Head WO IV CLINICAL DATA: HEAD INJURY, ON COUMADIN COMPARISON STUDY: None FINDINGS: There appears to be a small acute subdural hematoma along the falx measuring up to 3 mm. No significant mass effect on surrounding brain. No other intracranial hemorrhage is identified. No mass. No acute ischemia. Generalized parenchymal atrophy with scattered areas of nonspecific white matter disease, commonly seen as sequela of chronic microvascular ischemia. Right parietal occipital scalp hematoma without underlying calvarial fracture. Paranasal sinuses and mastoid air cells are clear. IMPRESSION: Small acute subdural hematoma along the anterior falx the left of midline measuring up to 3 mm. No significant mass effect on the surrounding brain. Findings discussed with ordering provider at time of dictation. Jose Parr DO 09/06/20 0757 Thank you for allowing us to participate in the care of your patient.
== END 2020-09-06 00:30 ==
LOC: VM.ED 22:29
DX: S01.81XA Laceration without foreign body of other part of head, initial encounter (principal); E11.9 Type 2 diabetes mellitus without complications; I10 Essential (primary) hypertension; E03.9 Hypothyroidism, unspecified; Z91.030 Bee allergy status; Z79.899 Other long term (current) drug therapy; W18.09XA Striking against other object with subsequent fall, initial encounter
CPT/HCPCS: 12002; 36415; 70450; 85610; 99284; 99284-25

== ENCOUNTER 2020-10-01 13:22 | Inpatient (IN) | payer OTHER, MEDICAID ==
[2020-10-01] MEDS ORDERED: Sodium Chloride 0.9% 10 ML Syringe FLUSH PRN (13:34)
[2020-10-01] MEDS ORDERED: Sodium Chloride 0.9% 1,000 ML IV ONE (13:34)
[2020-10-01 14:19] LABS: CHLORIDE,CL 103 mmol/L (98-107); SODIUM,NA 137 mmol/L (136-145)
--- NOTE | 2020-10-01 14:27 | CR ---
[id number] RAD/RAD Chest PA or AP 1V EXAM: SINGLE VIEW CHEST. INDICATION: SHORTNESS OF BREATH COMPARISON: CORRELATION IS MADE WITH JULY 30, 2020 FINDINGS: The lungs are clear The cardiomediastinal contour is stable There is an old left clavicular fracture IMPRESSION: NO PNEUMONIA OR EDEMA David Echevarria MD 10/01/20 2728 Thank you for allowing us to participate in the care of your patient.
[2020-10-01] MEDS: cefTRIAXone 2 GM Vial IVPUSH SCH (14:30)
--- NOTE | 2020-10-01 15:21 | EDM.PDOC ---
ED HPI GENERAL MEDICAL PROBLEM - General Chief Complaint: General Stated Complaint: weakness/shortness of breath Time Seen by Provider: 10/01/20 13:30 Source of Information: Reports: Patient, Care Home Records History Limitations: Reports: No Limitations - History of Present Illness INITIAL COMMENTS - FREE TEXT/NARRATIVE: Shanita is an 85 year old male who presents to ER from detention with feeling more weak, more short of breath. Was hypoxic with hypotension at the detention as well as tachycardic. intermediate staff did contact Dr. Willis who felt he needed to be evaluated for possible sepsis. patient has been afebrile. Denies increased cough. Appetite not as good today. No nausea or vomiting. No abdominal pain. No urinary symptoms. Denies headache. Does have history of AR a month ago. No history of atrial fib. Was on Plavix and Coumadin but those are currently on hold. Onset: Today, Sudden Duration: Hour(s):, Improving Location: Reports: Chest, Generalized Improves with: Reports: Rest Associated Symptoms: Reports: Loss of Appetite, Malaise, Shortness of Breath, Weakness. Denies: Confusion, Chest Pain, Cough, Fever/Chills, Nausea/Vomiting, Syncope - Related Data Allergies Allergy/AdvReac Type Severity Reaction Status Date / Time bee venom protein (honey bee) Allergy Cannot Verified 10/01/20 17:38 Remember Home Meds: Home Meds Levothyroxine Sodium [Levoxyl] 12.5 mcg PO ACBREAKFAST 08/01/17 [History] Montelukast Sodium 10 mg PO BEDTIME 08/01/17 [History] Primidone 150 mg PO TID 08/01/17 [History] Budesonide [Pulmicort] 2 ml INH BID 11/05/18 [History] Cholecalciferol (Vitamin D3) [Vitamin D3] 2,000 units PO DAILY 11/05/18 [History] Albuterol Sulfate 2.5 mg NEB QID PRN 07/07/20 [History] Albuterol Sulfate [Albuterol Sulfate HFA] 2 inh PO QID PRN 07/07/20 [History] Arformoterol [Brovana] 15 mcg NEB BID 07/08/20 [History] EPINEPHrine [Epipen 2-David] 0.3 mg IM ASDIRECTED PRN 07/08/20 [History] Gabapentin [Neurontin] 400 mg PO TID 07/08/20 [History] Acetaminophen [Tylenol] 650 mg PO Q4H PRN tablet 07/13/20 [Rx] Docusate Sodium/Sennosides [Senna Plus] 1 tab PO BID PRN tablet 07/13/20 [Rx] Menthol/Camphor [Sarna Anti-Itch] 1 applic TOP BID 07/30/20 [History] Bicalutamide [Casodex] 50 mg PO BEDTIME 10/01/20 [History] Insulin Glarg,Human.Rec.Analog [Lantus] 30 unit SUBCUT BEDTIME 10/01/20 [History] Rosuvastatin [Crestor] 20 mg PO BEDTIME 10/01/20 [History] metFORMIN HCl [Metformin HCl] 1,000 mg PO BIDMEALS 10/01/20 [History] Past Medical History Cardiovascular History: Reports: Blood Clots/VTE/DVT, Hypertension Respiratory History: Reports: Asthma, Bronchitis, Recurrent Genitourinary History: Reports: BPH, Prostate Disorder Neurological History: Reports: Other (See Below) Endocrine/Metabolic History: Reports: Diabetes, Type II, Hypothyroidism - Past Surgical History Oncologic Surgical History: Reports: None Social & Family History - Family History Family Medical History: No Pertinent Family History - Tobacco Use Tobacco Use Status *Q: Unknown Ever Used Tobacco - Caffeine Use Caffeine Use: Reports: Coffee ED ROS GENERAL - Review of Systems Review Of Systems: See Below Constitutional: Reports: Malaise, Weakness, Fatigue, Decreased Appetite. Denies: Fever, Chills HEENT: Denies: Ear Pain, Sinus Problem, Throat Pain, Vertigo Respiratory: Reports: Shortness of Breath. Denies: Cough Cardiovascular: Reports: Edema. Denies: Chest Pain, Lightheadedness Endocrine: Reports: Fatigue GI/Abdominal: Denies: Abdominal Pain, Nausea, Vomiting : Reports: No Symptoms Musculoskeletal: Reports: No Symptoms Skin: Reports: No Symptoms Neurological: Reports: Weakness ED EXAM, GENERAL - Physical Exam Exam: See Below Exam Limited By: No Limitations General Appearance: Alert, WD/WN, No Apparent Distress Ears: Normal External Exam, Normal TMs Nose: Normal Inspection, Normal Mucosa, No Blood Throat/Mouth: Normal Inspection, Normal Oropharynx Head: Normocephalic Neck: Normal Inspection, Supple, Non-Tender Respiratory/Chest: No Respiratory Distress, Lungs Clear, Normal Breath Sounds Cardiovascular: Tachycardia GI/Abdominal: Normal Bowel Sounds, Soft, Non-Tender Extremities: Normal Inspection, Pedal Edema (1+ pitting) Neurological: Alert, Oriented Skin Exam: Warm, Dry Course - Vital Signs Last Recorded V/S: Last Vital Signs Temp 98.6 F 10/01/20 16:53 Pulse 106 H 10/01/20 16:53 Resp 18 10/01/20 16:53 BP 108/70 10/01/20 16:53 Pulse Ox 95 10/01/20 16:53 - Orders/Labs/Meds Orders: Active Orders 24 hr Category Date Time Status Blood Pressure Mgt: Sepsis [RC] Q15MX2 Care 10/01/20 13:34 Active Cardiac Monitoring [RC] CONTINUOUS Care 10/01/20 13:35 Active EKG Documentation Completion [RC] STAT Care 10/01/20 13:34 Active CULTURE BLOOD [BC] Stat Lab 10/01/20 13:42 Received CULTURE BLOOD [BC] Stat Lab 10/01/20 13:50 Received UA W/MICROSCOPIC [URIN] Stat Lab 10/01/20 13:34 Ordered Sodium Chloride 0.9% [Normal Saline] 1,000 ml Med 10/01/20 13:34 Active IV BOLUS Sodium Chloride 0.9% [Saline Flush] Med 10/01/20 13:34 Active 10 ml FLUSH ASDIRECTED PRN cefTRIAXone [Rocephin] Med 10/01/20 14:30 Active 2 gm IVPUSH DAILY Blood Culture x2 Reflex Set [OM.PC] Stat Oth 10/01/20 13:34 Ordered Saline Lock Insert [OM.PC] Stat Oth 10/01/20 13:34 Ordered Severe Sepsis Onset Time [OM.PC] Stat Oth 10/01/20 13:34 Ordered Medication Orders Ceftriaxone Sodium (Ceftriaxone 2 Gm Vial) 2 gm IVPUSH DAILY [facility] Last Admin: 10/01/20 14:30 Dose: 2 gm Documented by: CARRBR Sodium Chloride (Normal Saline) 1,000 mls @ 125 mls/hr IV BOLUS ONE; Protocol Stop: 10/01/20 21:33 Last Admin: 10/01/20 14:33 Dose: 125 mls/hr Documented by: CARRBR Sodium Chloride (Sodium Chloride 0.9% 10 Ml Syringe) 10 ml FLUSH ASDIRECTED PRN PRN Reason: Keep Vein Open Labs: Laboratory Tests 10/01/20 10/01/20 10/01/20 Range/Units 13:42 13:42 13:42 WBC 8.5 (4.0-10.0) x10^3/uL RBC 3.95 L (4.5-6.0) x10^6/uL Hgb 12.6 L (14.0-18.0) g/dL Hct 38.0 L (40.0-52.0) % MCV 96.2 H (78.0-93.0) fL MCH 31.9 (26.0-32.0) pg MCHC 33.2 (32.0-36.0) g/dL RDW Coeff of Erik 16.1 H (10.0-15.0) % Plt Count 236 (130-400) x10^3/uL Neut % (Auto) 66.1 (50.0-80.0) % Lymph % (Auto) 20.3 L (25.0-50.0) % [place] % (Auto) 12.9 H (2.0-11.0) % Eos % (Auto) 0.5 (0.0-4.0) % Baso % (Auto) 0.2 (0.2-1.2) % D-Dimer, Quantitative (<=0.58) mg/LFEU Sodium 137 (136-145) mmol/L Potassium 6.0 H D (3.5-5.1) mmol/L Chloride 103 (98-107) mmol/L Carbon Dioxide 22 (21-32) mmol/L Anion Gap 18.0 H (5-15) mmol/L BUN 20 H (7-18) mg/dL Creatinine 1.3 (0.70-1.30) mg/dL Est Cr Clr Drug Dosing TNP Estimated GFR (MDRD) 52 Glucose 210 H (70-99) mg/dL Lactic Acid 4.9 H* (0.4-2.0) mmol/L Calcium 8.9 (8.5-10.1) mg/dL Corrected Calcium 9.6 (8.5-10.1) mg/dL Total Bilirubin 0.3 (0.2-1.0) mg/dL AST 44 H (15-37) U/L ALT 32 (16-63) U/L Alkaline Phosphatase 192 H (46-116) U/L Troponin I High Sens 250 H* (<=76) ng/L C-Reactive Protein 1.5 H (<=0.9) mg/dL Total Protein 7.2 (6.4-8.2) g/dL Albumin 3.1 L (3.4-5.0) g/dL Globulin 4.1 Albumin/Globulin Ratio 0.76 10/01/20 10/01/20 10/01/20 Range/Units 13:42 17:30 17:30 WBC (4.0-10.0) x10^3/uL RBC (4.5-6.0) x10^6/uL Hgb (14.0-18.0) g/dL Hct (40.0-52.0) % MCV (78.0-93.0) fL MCH (26.0-32.0) pg MCHC (32.0-36.0) g/dL RDW Coeff of Erik (10.0-15.0) % Plt Count (130-400) x10^3/uL Neut % (Auto) (50.0-80.0) % Lymph % (Auto) (25.0-50.0) % [place] % (Auto) (2.0-11.0) % Eos % (Auto) (0.0-4.0) % Baso % (Auto) (0.2-1.2) % D-Dimer, Quantitative 6.86 H (<=0.58) mg/LFEU Sodium (136-145) mmol/L Potassium 5.2 H (3.5-5.1) mmol/L Chloride (98-107) mmol/L Carbon Dioxide (21-32) mmol/L Anion Gap (5-15) mmol/L BUN (7-18) mg/dL Creatinine (0.70-1.30) mg/dL Est Cr Clr Drug Dosing Estimated GFR (MDRD) Glucose (70-99) mg/dL Lactic Acid 4.2 H* (0.4-2.0) mmol/L Calcium (8.5-10.1) mg/dL Corrected Calcium (8.5-10.1) mg/dL Total Bilirubin (0.2-1.0) mg/dL AST (15-37) U/L ALT (16-63) U/L Alkaline Phosphatase (46-116) U/L Troponin I High Sens (<=76) ng/L C-Reactive Protein (<=0.9) mg/dL Total Protein (6.4-8.2) g/dL Albumin (3.4-5.0) g/dL Globulin Albumin/Globulin Ratio Meds: Medications Generic Name Dose Route Start Last Admin Trade Name Freq PRN Reason Stop Dose Admin Ceftriaxone Sodium 2 gm 10/01/20 14:30 10/01/20 14:30 Ceftriaxone 2 Gm Vial IVPUSH 2 gm DAILY FLOR Administration Sodium Chloride 1,000 mls @ 125 mls/hr 10/01/20 13:34 10/01/20 14:33 Normal Saline IV 10/01/20 21:33 125 mls/hr BOLUS ONE Administration Protocol Sodium Chloride 10 ml 10/01/20 13:34 Sodium Chloride 0.9% 10 Ml Syringe FLUSH ASDIRECTED PRN Keep Vein Open Discontinued Medications Generic Name Dose Route Start Last Admin Trade Name Freq PRN Reason Stop Dose Admin Iopamidol 100 ml 10/01/20 16:13 10/01/20 17:00 Iopamidol 612 Mg/Ml 100 Ml Bottle IVPUSH 10/01/20 16:14 100 ml ONETIME ONE Administration - Re-Assessments/Exams Free Text/Narrative Re-Assessment/Exam: 10/01/20 15:00 Labs noted. Has elevated lactic acid and potassium. WBC is normal at 8.5, CRP is 1.5. Sodium normal. BUN 20, Creatinine 1.3. Elevated troponin I at 250. Chest xray is negative. Did discuss with Dr. Willis, recommended d-dimer as no source of sepsis found at this time. Will obtain, repeat lactic acid in 4 hours. IV fluids are infusing, has had 2 gm of IV Rocephin. 10/01/20 18:13 Patient's d-dimer is elevated. CT for PE done and does show bilateral pulmonary emboli in the right and left main bronchus with right heart strain. Reached out to Dr. Willis for further specifics in related to his prior anticoagulants being held. Had fallen in the middle of August and had small subdural bleed so these were held awaiting follow up CT in one month. Did reach out then to Dr. Hubbard at [place] for further instruction due to meds for the PE. Reviewed chart, neurosurgeon had looked at CT, did advise could stay on Plavix so advised to start that again and admit patient with heparin drip. This could then be lorna tored closely and reversed if causes any bleeding concerns. Contacted family, would like to proceed with treatment. Dr. Meza informed and will admit patient. Lactic acid and potassium repeated, are improving. Lactic acid 4.2, potassium 5.2. Departure - Departure Time of Disposition: 18:17 Disposition: Admitted As Inpatient 66 Condition: Serious Clinical Impression: Pulmonary emboli - Discharge Information *PRESCRIPTION DRUG MONITORING PROGRAM REVIEWED*: No *COPY OF PRESCRIPTION DRUG MONITORING REPORT IN PATIENT PAPA: No Referrals: PCP,Unknown [Ordering Only Provider] - Forms: ED Department Discharge Sepsis Event Note (ED) - Evaluation Sepsis Screening Result: No Definite Risk - Focused Exam Vital Signs: Vital Signs Temp Pulse Resp BP Pulse Ox 10/01/20 16:53 98.6 F 106 H 18 108/70 95 10/01/20 15:26 103 H 99/66 10/01/20 14:26 108 H 101/67 10/01/20 13:23 97.3 F 113 H 17 127/66 95 - Problem List & Annotations (1) Pulmonary emboli SNOMED Code(s): 56968310 Code(s): I26.99 - OTHER PULMONARY EMBOLISM WITHOUT ACUTE COR PULMONALE Status: Acute Priority: High Current Visit: Yes Qualifiers: Chronicity: acute - Problem List Review Problem List Initiated/Reviewed/Updated: Yes - My Orders Last 24 Hours: My Active Orders 10/01/20 13:34 Blood Pressure Mgt: Sepsis [RC] Q15MX2 EKG Documentation Completion [RC] STAT UA W/MICROSCOPIC [URIN] Stat Sodium Chloride 0.9% [Normal Saline] 1,000 ml IV BOLUS Sodium Chloride 0.9% [Saline Flush] 10 ml FLUSH ASDIRECTED PRN Blood Culture x2 Reflex Set [OM.PC] Stat Saline Lock Insert [OM.PC] Stat Severe Sepsis Onset Time [OM.PC] Stat 10/01/20 13:35 Cardiac Monitoring [RC] CONTINUOUS 10/01/20 13:42 CULTURE BLOOD [BC] Stat 10/01/20 13:50 CULTURE BLOOD [BC] Stat 10/01/20 14:30 cefTRIAXone [Rocephin] 2 gm IVPUSH DAILY - Assessment/Plan Admission H&P: Please use this note as an admission H&P Last 24 Hours: My Active Orders 10/01/20 13:34 Blood Pressure Mgt: Sepsis [RC] Q15MX2 EKG Documentation Completion [RC] STAT UA W/MICROSCOPIC [URIN] Stat Sodium Chloride 0.9% [Normal Saline] 1,000 ml IV BOLUS Sodium Chloride 0.9% [Saline Flush] 10 ml FLUSH ASDIRECTED PRN Blood Culture x2 Reflex Set [OM.PC] Stat Saline Lock Insert [OM.PC] Stat Severe Sepsis Onset Time [OM.PC] Stat 10/01/20 13:35 Cardiac Monitoring [RC] CONTINUOUS 10/01/20 13:42 CULTURE BLOOD [BC] Stat 10/01/20 13:50 CULTURE BLOOD [BC] Stat 10/01/20 14:30 cefTRIAXone [Rocephin] 2 gm IVPUSH DAILY Assessment:: Dr. Meza to follow patient with admission.
[2020-10-01] MEDS ORDERED: Iopamidol 612 MG/ML 100 ML Bottle IVPUSH ONE (16:13)
--- NOTE | 2020-10-01 17:24 | CT ---
[id number] CT/CTA Chest EXAM: CT ANGIOGRAM CHEST INDICATION: SHORTNESS OF BREATH/ELEVATED D-DIMER. COMPARISON: None. DISCUSSION: Acute pulmonary embolism involving right and left main pulmonary arteries extending into lobar, segmental and subsegmental branches. There is enlargement of the right ventricle with a right to left ratio of greater than 1.5-[address] Blanchard bowing of the interventricular septum consistent with acute right heart strain. No evidence of pulmonary infarct. The lungs are otherwise clear with no nodule, infiltrate or mass identified.No pleural or pericardial effusion. No mediastinal, hilar or axillary lymphadenopathy. The imaged upper abdomen and osseous structures are unremarkable. IMPRESSION: 1. Acute pulmonary embolism involving the right and left main pulmonary arteries extending into distal branches. There is evidence of acute right heart strain. Findings discussed with ordering provider at time of dictation. Jose Parr DO 10/01/20 [id number] Thank you for allowing us to participate in the care of your patient.
[2020-10-01] MEDS ORDERED: Heparin Sodium 5,000 Units/ML Vial IVPUSH ONE (19:24)
[2020-10-01] MEDS ORDERED: Albuterol 0.083% 2.5 MG/3 ML Neb Soln NEB PRN ×2 (19:36→20:28)
[2020-10-01] MEDS ORDERED: 50% Dextrose in Water 50 ML Syringe IVPUSH PRN ×2 (19:49→20:24)
[2020-10-01] MEDS ORDERED: Glucagon,Human Recombinant 1 MG Vial IM PRN ×2 (19:49→20:24)
[2020-10-01] MEDS ORDERED: Budesonide 0.5 MG/2 ML Neb Susp NEB SCH (20:00)
[2020-10-01] MEDS ORDERED: Gabapentin 400 MG Cap PO SCH (20:00)
[2020-10-01] MEDS ORDERED: Arformoterol 15 MCG/2 ML Neb Soln NEB SCH (20:00)
[2020-10-01] MEDS ORDERED: Montelukast 10 MG Tab PO SCH (20:00)
[2020-10-01] MEDS ORDERED: atorvaSTATin 40 MG Tab PO SCH (20:00)
[2020-10-01] MEDS: Heparin Sodium/0.45% NaCl 25,000 UNITS/500 ML BAG IV SCH (20:10)
[2020-10-01] MEDS ORDERED: Nitroglycerin 0.4 MG Tab.SL SL PRN (20:29)
[2020-10-01] MEDS: Arformoterol 15 MCG/2 ML Neb Soln NEB SCH (21:42)
[2020-10-01] MEDS: atorvaSTATin 40 MG Tab PO SCH (21:43)
[2020-10-01] MEDS: Budesonide 0.5 MG/2 ML Neb Susp NEB SCH (21:43)
--- NOTE | 2020-10-01 22:40 | PCM.HP.2 ---
H&P History of Present Illness - General Date of Service: 10/01/20 Admit Problem/Dx: Admission Diagnosis/Problem Admission Diagnosis/Problem Pulmonary embolism Source of Information: Patient, Snf Records, Provider History Limitations: Reports: Altered Mental Status (mildly decreased memory) - History of Present Illness Initial Comments - Free Text/Narative: CC: SOB Pt woke up at 2 am and noted SOB and just feeling tired. [facility] staff notes hypoxia( 90% on 3 liters) and hypotension( BP 78/56) at 12:30 and sent him to ER. 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 per Kylee Mireles, ER provider," Did reach out then to Dr. Hubbard at [facility] for further instruction due to meds for the PE. Reviewed chart, neurosurgeon had looked at CT, did advise could stay on Plavix so advised to start that again and admit patient with heparin drip. This could then be monitored closely and reversed if causes any bleeding concerns. Contacted family, would like to proceed with treatment. Dr. Meza informed and will admit patient. " Pt is now admitted for heparin IV PMH: Parkinsonism that slows his walking and causes tremor, dysphagia Prostate CA diagnosed 02/09 on Lupron and bicalutamide for VA CAD with OH 08/18/2020,stents times 3 COPD Hypothyroidism Hypertension Hyperlipidemia Mild Cognitive impairment Diabetes Anemia MEDS: Pulmicort BID Brovana BID Plavix 75 on hold since at least September 21 primidone 150 tid Singulair 10 qd Vit D3 2000 qd levothyroxine 12.5 qd Metformin 1000 bid Crestor 20 qd gabapentin 400 tid lantus 25 qd bicalutamide 50 qd Prn Ntg, Imodium, Tylenol, NTG, Sarna, Senna, EPi pen ALLERGIES: Bee stings FH: Pt's sister with Alzheimer, no fh hypercoagulability SH: , he and his Peg at [facility], pt falls. 2 sonsCharles and Rowdy, 1 daughter Margi; daughter in law Shanita" keeps track of things" retired [employer] Habits: no etoh or smoking ROS: Gen: feels tired HEENT: no diff seeing, hearing, some choking occ with eating RESP + SOB, no hemoptysis CVS: no chest pain, pressure, tachycardia ABD: No pain, rectal bleeding melena : hasn't urinated today, feels like he wants to now; no hematuria or dysuria MS: no pain or swelling in legs Neuro: no headache, states memory could be better; had a cut on curt of his head which was stapled a few weeks ago PE: Well nourished male in NAD, cooperative, memory vague on dates, Initial BP 111/80 pulse 105 temp nl O2 sat 92% at rest but with exercise went to 88% Shortly after arriving on unit, pt became less resposive,, BP down to 108/70 O2 sat decreased to 82 % on RA; when O2 improved with O2, pt was able to say he felt SOB Skin initially warm and pink, became cool and pale with acite episode, then recvoered Lymph none palp in neck, or axilla, groin HEENT: healed scar at occiput, no facial asymmetry, neck supple, EOM's full Pupils equal in size Lungs: clear Cor s1s2 normal w/o rubs,murmur or gallops Abd: soft and non tender, stool heme neg EXT: no clubbing,m cyanosis or edema Neuro: awake, speech fluent, moving all extremities equally , CN's intact Psych: affect normal LAB: EKG L; sinus tach 113 LAD, Old IWMI CBC: HB 12.6 WBC 8500 [id number] APTT 25.2 DDimer 6.86 NA 137 K 5.2 Cl103 CO2 22 BUN 20 Cr 1.3 Glu 210 Lacate 4.2 AST 44 Alk phos 192 trop 250 CAT angio as in HPI IMP 1. Life threatening PE: Pt understands Heparin may cause [employer] bleed but is indicated to avoid from PE. Pt and family agree, will need to follow cardiac status and neuro status carefully , discussed with primary contact Shanita who concurs 2, CAD:resumne statin, consider restarting plavix if no painter maintenance bleeding 3. AODM: coninute Lantus and metformin, frequent BS checks if pt not eating 4.Parkinsonism: continue meds 5. Prostate CA: hold meds for now - Related Data Allergies/Adverse Reactions: Allergies Allergy/AdvReac Type Severity Reaction Status Date / Time bee venom protein (honey bee) Allergy Cannot Verified 10/01/20 17:38 Remember Home Medications: Home Meds Levothyroxine Sodium [Levoxyl] 12.5 mcg PO ACBREAKFAST 08/01/17 [History] Montelukast Sodium 10 mg PO BEDTIME 08/01/17 [History] Primidone 150 mg PO TID 08/01/17 [History] Budesonide [Pulmicort] 2 ml INH BID 11/05/18 [History] Cholecalciferol (Vitamin D3) [Vitamin D3] 2,000 units PO DAILY 11/05/18 [History] Albuterol Sulfate 2.5 mg NEB QID PRN 07/07/20 [History] Albuterol Sulfate [Albuterol Sulfate HFA] 2 inh PO QID PRN 07/07/20 [History] Arformoterol [Brovana] 15 mcg NEB BID 07/08/20 [History] EPINEPHrine [Epipen 2-David] 0.3 mg IM ASDIRECTED PRN 07/08/20 [History] Gabapentin [Neurontin] 400 mg PO TID 07/08/20 [History] Acetaminophen [Tylenol] 650 mg PO Q4H PRN tablet 07/13/20 [Rx] Docusate Sodium/Sennosides [Senna Plus] 1 tab PO BID PRN tablet 07/13/20 [Rx] Menthol/Camphor [Sarna Anti-Itch] 1 applic TOP BID 07/30/20 [History] Bicalutamide [Casodex] 50 mg PO BEDTIME 10/01/20 [History] Insulin Glarg,Human.Rec.Analog [Lantus] 30 unit SUBCUT BEDTIME 10/01/20 [History] Rosuvastatin [Crestor] 20 mg PO BEDTIME 10/01/20 [History] metFORMIN HCl [Metformin HCl] 1,000 mg PO BIDMEALS 10/01/20 [History] Past Medical History Cardiovascular History: Reports: Blood Clots/VTE/DVT, Hypertension Respiratory History: Reports: Asthma, Bronchitis, Recurrent Genitourinary History: Reports: BPH, Prostate Disorder Neurological History: Reports: Other (See Below) Endocrine/Metabolic History: Reports: Diabetes, Type II, Hypothyroidism - Past Surgical History Oncologic Surgical History: Reports: None Social & Family History - Family History Family Medical History: No Pertinent Family History - Tobacco Use Tobacco Use Status *Q: Unknown Ever Used Tobacco - Caffeine Use Caffeine Use: Reports: Coffee H&P Review of Systems - Review of Systems: Review Of Systems: See Below General: Reports: Weakness HEENT: Reports: No Symptoms Pulmonary: Reports: Shortness of Breath Cardiovascular: Reports: No Symptoms Gastrointestinal: Reports: No Symptoms Genitourinary: Reports: No Symptoms Musculoskeletal: Reports: No Symptoms Skin: Reports: No Symptoms Psychiatric: Reports: No Symptoms Neurological: Reports: No Symptoms Hematologic/Lymphatic: Reports: No Symptoms Immunologic: Reports: No Symptoms Exam - Exam Exam: See Below - Vital Signs Vital Signs: Last Vital Signs Temp 98.6 F 10/01/20 16:53 Pulse 105 H 10/01/20 17:54 Resp 20 10/01/20 17:54 BP 111/80 10/01/20 17:54 Pulse Ox 95 10/01/20 17:54 Weight: 210 lb - Exam Quality Assessment: Supplemental Oxygen General: Alert HEENT: Conjunctiva Clear Neck: Supple Lungs: Clear to Auscultation Cardiovascular: Irregular Rhythm GI/Abdominal Exam: Normal Bowel Sounds, Soft, Non-Tender Rectal (Males) Exam: Heme - Stool Extremities: Normal Inspection Skin: Warm, Dry Neurological: Cranial Nerves Intact, Strength Equal Bilateral, Normal Speech Neuro Extensive - Mental Status: Alert, Normal Mood/Affect Neuro Extensive - Motor, Sensory, Reflexes: CN II-XII Intact Psychiatric: Alert, Normal Affect - Patient Data Lab Results Last 24 hrs: Laboratory Results - last 24 hr 10/01/20 10/01/20 10/01/20 Range/Units 13:42 13:42 13:42 WBC 8.5 (4.0-10.0) x10^3/uL RBC 3.95 L (4.5-6.0) x10^6/uL Hgb 12.6 L (14.0-18.0) g/dL Hct 38.0 L (40.0-52.0) % MCV 96.2 H (78.0-93.0) fL MCH 31.9 (26.0-32.0) pg MCHC 33.2 (32.0-36.0) g/dL RDW Coeff of Erik 16.1 H (10.0-15.0) % Plt Count 236 (130-400) x10^3/uL Neut % (Auto) 66.1 (50.0-80.0) % Lymph % (Auto) 20.3 L (25.0-50.0) % Garrett % (Auto) 12.9 H (2.0-11.0) % Eos % (Auto) 0.5 (0.0-4.0) % Baso % (Auto) 0.2 (0.2-1.2) % APTT (25.6-32.8) SEC D-Dimer, Quantitative (<=0.58) mg/LFEU Sodium 137 (136-145) mmol/L Potassium 6.0 H D (3.5-5.1) mmol/L Chloride 103 (98-107) mmol/L Carbon Dioxide 22 (21-32) mmol/L Anion Gap 18.0 H (5-15) mmol/L BUN 20 H (7-18) mg/dL Creatinine 1.3 (0.70-1.30) mg/dL Est Cr Clr Drug Dosing TNP Estimated GFR (MDRD) 52 Glucose 210 H (70-99) mg/dL Lactic Acid 4.9 H* (0.4-2.0) mmol/L Calcium 8.9 (8.5-10.1) mg/dL Corrected Calcium 9.6 (8.5-10.1) mg/dL Total Bilirubin 0.3 (0.2-1.0) mg/dL AST 44 H (15-37) U/L ALT 32 (16-63) U/L Alkaline Phosphatase 192 H (46-116) U/L Troponin I High Sens 250 H* (<=76) ng/L C-Reactive Protein 1.5 H (<=0.9) mg/dL Total Protein 7.2 (6.4-8.2) g/dL Albumin 3.1 L (3.4-5.0) g/dL Globulin 4.1 Albumin/Globulin Ratio 0.76 SARS CoV-2 RNA Rapid GWEN (NEGATIVE) 10/01/20 10/01/20 10/01/20 Range/Units 13:42 16:44 17:30 WBC (4.0-10.0) x10^3/uL RBC (4.5-6.0) x10^6/uL Hgb (14.0-18.0) g/dL Hct (40.0-52.0) % MCV (78.0-93.0) fL MCH (26.0-32.0) pg MCHC (32.0-36.0) g/dL RDW Coeff of Erik (10.0-15.0) % Plt Count (130-400) x10^3/uL Neut % (Auto) (50.0-80.0) % Lymph % (Auto) (25.0-50.0) % Garrett % (Auto) (2.0-11.0) % Eos % (Auto) (0.0-4.0) % Baso % (Auto) (0.2-1.2) % APTT 25.2 L (25.6-32.8) SEC D-Dimer, Quantitative 6.86 H (<=0.58) mg/LFEU Sodium (136-145) mmol/L Potassium 5.2 H (3.5-5.1) mmol/L Chloride (98-107) mmol/L Carbon Dioxide (21-32) mmol/L Anion Gap (5-15) mmol/L BUN (7-18) mg/dL Creatinine (0.70-1.30) mg/dL Est Cr Clr Drug Dosing Estimated GFR (MDRD) Glucose (70-99) mg/dL Lactic Acid (0.4-2.0) mmol/L Calcium (8.5-10.1) mg/dL Corrected Calcium (8.5-10.1) mg/dL Total Bilirubin (0.2-1.0) mg/dL AST (15-37) U/L ALT (16-63) U/L Alkaline Phosphatase (46-116) U/L Troponin I High Sens (<=76) ng/L C-Reactive Protein (<=0.9) mg/dL Total Protein (6.4-8.2) g/dL Albumin (3.4-5.0) g/dL Globulin Albumin/Globulin Ratio SARS CoV-2 RNA Rapid GWEN (NEGATIVE) 10/01/20 10/01/20 Range/Units 17:30 18:18 WBC (4.0-10.0) x10^3/uL RBC (4.5-6.0) x10^6/uL Hgb (14.0-18.0) g/dL Hct (40.0-52.0) % MCV (78.0-93.0) fL MCH (26.0-32.0) pg MCHC (32.0-36.0) g/dL RDW Coeff of Erik (10.0-15.0) % Plt Count (130-400) x10^3/uL Neut % (Auto) (50.0-80.0) % Lymph % (Auto) (25.0-50.0) % Garrett % (Auto) (2.0-11.0) % Eos % (Auto) (0.0-4.0) % Baso % (Auto) (0.2-1.2) % APTT (25.6-32.8) SEC D-Dimer, Quantitative (<=0.58) mg/LFEU Sodium (136-145) mmol/L Potassium (3.5-5.1) mmol/L Chloride (98-107) mmol/L Carbon Dioxide (21-32) mmol/L Anion Gap (5-15) mmol/L BUN (7-18) mg/dL Creatinine (0.70-1.30) mg/dL Est Cr Clr Drug Dosing Estimated GFR (MDRD) Glucose (70-99) mg/dL Lactic Acid 4.2 H* (0.4-2.0) mmol/L Calcium (8.5-10.1) mg/dL Corrected Calcium (8.5-10.1) mg/dL Total Bilirubin (0.2-1.0) mg/dL AST (15-37) U/L ALT (16-63) U/L Alkaline Phosphatase (46-116) U/L Troponin I High Sens (<=76) ng/L C-Reactive Protein (<=0.9) mg/dL Total Protein (6.4-8.2) g/dL Albumin (3.4-5.0) g/dL Globulin Albumin/Globulin Ratio SARS CoV-2 RNA Rapid GWEN Negative (NEGATIVE) Result Diagrams: 10/01/20 13:42 10/01/20 17:30 Sepsis Event Note - Evaluation Sepsis Screening Result: No Definite Risk - Focused Exam Vital Signs: Vital Signs Temp Pulse Resp BP Pulse Ox 10/01/20 17:54 105 H 20 111/80 95 10/01/20 16:53 98.6 F 106 H 18 108/70 95 10/01/20 15:26 103 H 99/66 10/01/20 14:26 108 H 101/67 10/01/20 13:23 97.3 F 113 H 17 127/66 95 *Q Meaningful Use (ADM) - VTE Risk Assess *Q Each Risk Factor Represents 2 Points: Malignancy (present or previous) Total Score 2 Point Risk Factors: 2 Each Risk Factor Represents 3 Points: None, Age 75 Years or Greater, History of DVT/PE, Family history of thrombosis, Positive factor V Leiden, Positive Prothrombin 12556P, Elevated Serum Homocysteine, Positive lupus anticoagulant, Elevated Anticardiolipin Antibodies, Heparin-Induced Thrombocytopenia (HIT), Other congenital or acquired thrombophilia Total Score 3 Point Risk Factors: 30 Problem List Initiated/Reviewed/Updated: Yes Orders Last 24hrs: Active Orders 24 hr Category Date Time Status Patient Status Manage Transfer [TRANSFER] Routine ADT 10/01/20 18:18 Active Patient Status [ADT] Routine ADT 10/01/20 20:38 Active Blood Pressure Mgt: Sepsis [RC] [id number] Care 10/01/20 13:34 Active Cardiac Monitoring [RC] 02,06,10,14,18,22 Care 10/01/20 13:35 Active Diabetes Education [RC] Click to Edit Care 10/01/20 20:42 Active Hemoccult [Fecal Occult Bld Scn Imm] [RC] STAT Care 10/01/20 19:30 Active Intake and Output [RC] 06,18 Care 10/01/20 20:41 Active Oxygen Therapy [RC] 08,20 Care 10/01/20 20:38 Active Pulse Oximetry [RC] 02,06,10,14,18,22 Care 10/01/20 20:41 Active RT Aerosol Therapy [RC] 07,20 Care 10/01/20 19:37 Active RT Aerosol Therapy [RC] ASDIRECTED Care 10/01/20 20:28 Active VTE/DVT Education [RC] UPON Care 10/01/20 20:38 Active Vital Signs [RC] 02,06,10,14,18,22 Care 10/01/20 20:38 Active Clear Liquid Diet [DIET] Diet 10/01/20 Dinner Active CBC W/O DIFF,HEMOGRAM [HEME] Q3D Lab 10/02/20 07:00 Ordered CBC W/O DIFF,HEMOGRAM [HEME] Q3D Lab 10/05/20 07:00 Ordered CBC W/O DIFF,HEMOGRAM [HEME] Q3D Lab 10/08/20 07:00 Ordered CBC W/O DIFF,HEMOGRAM [HEME] Q3D Lab 10/11/20 07:00 Ordered CBC W/O DIFF,HEMOGRAM [HEME] Q3D Lab 10/14/20 07:00 Ordered CBC W/O DIFF,HEMOGRAM [HEME] Q3D Lab 10/17/20 07:00 Ordered CBC W/O DIFF,HEMOGRAM [HEME] Q3D Lab 10/20/20 07:00 Ordered CULTURE BLOOD [BC] Stat Lab 10/01/20 13:42 Received CULTURE BLOOD [BC] Stat Lab 10/01/20 13:50 Received CULTURE MRSA SURVEY [RM] Routine Lab 10/01/20 20:56 Ordered INR,PT,PROTHROMBIN TIME [COAG] DAILY Lab 10/01/20 20:45 Ordered PTT,PARTIAL THROMBOPLSTIN TIME [COAG] Timed Lab 10/01/20 20:38 Ordered UA W/MICROSCOPIC [URIN] Stat Lab 10/01/20 20:15 Ordered Albuterol [Proventil Neb Soln] Med 10/01/20 20:28 Active 2.5 mg NEB Q4H PRN Arformoterol [Brovana] Med 10/01/20 21:00 Active 15 mcg NEB BIDRT Budesonide [Pulmicort] Med 10/01/20 21:00 Active 0.5 mg NEB BIDRT Clopidogrel [Plavix] Med 10/03/20 08:00 Active 75 mg PO DAILY Dextrose 50% in Water Med 10/01/20 20:24 Active 50 ml IVPUSH ASDIRECTED PRN Gabapentin [Neurontin] Med 10/02/20 08:00 Active 400 mg PO TID Glucagon,Human Recombinant [GlucaGen] Med 10/01/20 20:24 Active 1 mg IM ASDIRECTED PRN Heparin Sodium/0.45% NaCl [Heparin 25,000 Units in 1/2 Med 10/01/20 19:30 Active NS 500 ML] 25,000 units in 500 ml IV TITRATE Insulin Glarg,Human.Rec.Analog [LantUS] Med 10/02/20 08:00 Active 25 unit SUBCUT DAILY Levothyroxine Med 10/02/20 07:00 Active 12.5 mcg PO ACBREAKFAST Montelukast [Singulair] Med 10/02/20 20:00 Active 10 mg PO BEDTIME Nitroglycerin [Nitrostat] Med 10/01/20 20:29 Active 0.4 mg SL Q5M PRN Primidone [Mysoline] Med 10/02/20 08:00 Active 150 mg PO TID Sodium Chloride 0.9% [Saline Flush] Med 10/01/20 13:34 Active 10 ml FLUSH ASDIRECTED PRN atorvaSTATin [Lipitor] Med 10/01/20 21:00 Active 40 mg PO BEDTIME cefTRIAXone [Rocephin] Med 10/01/20 14:30 Active 2 gm IVPUSH DAILY metFORMIN [Glucophage] Med 10/02/20 08:00 Active 1,000 mg PO BIDMEALS Blood Culture x2 Reflex Set [OM.PC] Stat Ot 10/01/20 13:34 Ordered Glucose Management Sub Q Reflex [OM.PC] Click To Edit Ot 10/01/20 20:38 Ordered Saline Lock Insert [OM.PC] Stat Ot 10/01/20 13:34 Ordered Severe Sepsis Onset Time [OM.PC] Stat Ot 10/01/20 13:34 Ordered Resuscitation Status Routine Resus Stat 10/01/20 20:38 Ordered Medication Orders Albuterol (Albuterol 0.083% 2.5 Mg/3 Ml Neb Soln) 2.5 mg NEB Q4H PRN PRN Reason: Shortness of Breath Arformoterol Tartrate (Arformoterol 15 Mcg/2 Ml Neb Soln) 15 mcg NEB BIDRT [facility] Last Admin: 10/01/20 21:42 Dose: 15 mcg Documented by: DAHLIA Atorvastatin Calcium (Atorvastatin 40 Mg Tab) 40 mg PO BEDTIME [facility] Last Admin: 10/01/20 21:43 Dose: 40 mg Documented by: DAHLIA Budesonide (Budesonide 0.5 Mg/2 Ml Neb Susp) 0.5 mg NEB BIDRT [facility] Last Admin: 10/01/20 21:43 Dose: 0.5 mg Documented by: DAHLIA Ceftriaxone Sodium (Ceftriaxone 2 Gm Vial) 2 gm IVPUSH DAILY [facility] Last Admin: 10/01/20 14:30 Dose: 2 gm Documented by: ZELALEM Clopidogrel Bisulfate (Clopidogrel 75 Mg Tab) 75 mg PO DAILY [facility] Dextrose/Water (50% Dextrose In Water 50 Ml Syringe) 50 ml IVPUSH ASDIRECTED PRN PRN Reason: Hypoglycemia Gabapentin (Gabapentin 400 Mg Cap) 400 mg PO TID FLOR Glucagon (Glucagon,Human Recombinant 1 Mg Vial) 1 mg IM ASDIRECTED PRN PRN Reason: Hypoglycemia Heparin Sodium/Sodium Chloride (Heparin 25,000 Units In 1/2 Ns 500 Ml) 25,000 units in 500 mls @ 26 mls/hr IV TITRATE FLOR; Protocol Last Admin: 10/01/20 20:10 Dose: 1,300 units/hr, 26 mls/hr Documented by: DAHLIA Cosigned by: VONDA Insulin Glargine (Insulin Glarg,Human.Rec.Analog 100 Unit/Ml) 25 unit SUBCUT DAILY [facility] Levothyroxine Sodium (Levothyroxine 25 Mcg Tab) 12.5 mcg PO ACBREAKFAST [facility]OR Metformin HCl (Metformin 500 Mg Tab) 1,000 mg PO BIDMEALS FLOR Montelukast Sodium (Montelukast 10 Mg Tab) 10 mg PO BEDTIME [facility]OR Nitroglycerin (Nitroglycerin 0.4 Mg Tab.Sl) 0.4 mg SL Q5M PRN PRN Reason: Chest Pain Primidone (Primidone 50 Mg Tab) 150 mg PO TID FLOR Sodium Chloride (Sodium Chloride 0.9% 10 Ml Syringe) 10 ml FLUSH ASDIRECTED PRN PRN Reason: Keep Vein Open
[2020-10-01] MEDS ORDERED: Sodium Chloride 0.9% 200 ML IV ONE (23:15)
[2020-10-02] MEDS: Dextrose 5%-0.45% NaCl 1,000 ML IV SCH ×2 (00:21→22:04)
[2020-10-02] MEDS: Arformoterol 15 MCG/2 ML Neb Soln NEB SCH ×2 (06:11→20:01)
[2020-10-02] MEDS: Budesonide 0.5 MG/2 ML Neb Susp NEB SCH ×2 (06:11→20:02)
[2020-10-02] MEDS: Levothyroxine 25 MCG Tab PO SCH (06:12)
[2020-10-02] MEDS ORDERED: Levothyroxine 25 MCG Tab PO SCH (07:00)
[2020-10-02] MEDS ORDERED: Insulin Glarg,Human.Rec.Analog 100 Unit/ML SUBCUT SCH (08:00)
[2020-10-02] MEDS: metFORMIN 500 MG Tab PO SCH ×2 (08:14→17:24)
[2020-10-02] MEDS: Primidone 50 MG Tab PO SCH ×3 (08:14→20:10)
[2020-10-02] MEDS: Gabapentin 400 MG Cap PO SCH ×3 (08:14→20:09)
[2020-10-02] MEDS: Insulin Glarg,Human.Rec.Analog 100 Unit/ML SUBCUT SCH (08:15)
[2020-10-02] MEDS: cefTRIAXone 2 GM Vial IVPUSH SCH (08:18)
--- NOTE | 2020-10-02 10:22 | PCM.PN ---
- General Info Date of Service: 10/02/20 Admission Dx/Problem (Free Text): s:pt has had not further episodes of acute dyspnea. He is hungry and wants to eat; pt asks why he is in hospital and he is informed. Pt's daughter in law says his short term memory as been in decline this year. O: Temp 97.8 pulse 96 BP 96/62 RR18 O2 sat 97 on 7 liters Lungs: Clear Cor: no rubs,murmurs or zeng[s Abd soft and non tender Pt not able to swallow water w/o aspirating APTT baseline 25.2 4 hrs post 5000 units heparin bolus and 1300 units/hour was 118.3 Heparin held for an hour and restarted at 800 units/hour with PTT or 59.3 IMP: 1. Massive PE: O2 need has increased and pt required 2 boluses of 200 cc NS to keep BP up. Will keep PTT between 2.5 to 3 times baseline, start Coumadin tomorrow, continue to support BP and O2 sat; no sign of new neuro compromise 2. Parkinson and dysphagi- try thickener 3. AODMPt receving Lantus and Metformin will continue D5 1/2 NS at 50 an hour to maintain hydration while po intake is questionable - Patient Data Vitals - Most Recent: Last Vital Signs Temp 97.8 F 10/02/20 06:00 Pulse 96 10/02/20 06:00 Resp 18 10/02/20 06:00 BP 96/62 10/02/20 06:00 Pulse Ox 95 10/02/20 06:00 Weight - Most Recent: 210 lb I&O - Last 24 Hours: Intake & Output 10/01/20 10/02/20 10/02/20 22:59 06:59 14:59 Intake Total 800 Output Total 0 Balance 800 Lab Results Last 24 Hours: Laboratory Results - last 24 hr 10/01/20 10/01/20 10/01/20 Range/Units 00:10 00:10 13:42 WBC 8.5 (4.0-10.0) x10^3/uL RBC 3.95 L (4.5-6.0) x10^6/uL Hgb 12.6 L (14.0-18.0) g/dL Hct 38.0 L (40.0-52.0) % MCV 96.2 H (78.0-93.0) fL MCH 31.9 (26.0-32.0) pg MCHC 33.2 (32.0-36.0) g/dL RDW Coeff of Erik 16.1 H (10.0-15.0) % Plt Count 236 (130-400) x10^3/uL Neut % (Auto) 66.1 (50.0-80.0) % Lymph % (Auto) 20.3 L (25.0-50.0) % Noble % (Auto) 12.9 H (2.0-11.0) % Eos % (Auto) 0.5 (0.0-4.0) % Baso % (Auto) 0.2 (0.2-1.2) % PT 12.6 H (9.9-12.5) SEC INR 1.1 L (2.0-3.5) APTT 118.2 H* D (25.6-32.8) SEC D-Dimer, Quantitative (<=0.58) mg/LFEU Sodium (136-145) mmol/L Potassium (3.5-5.1) mmol/L Chloride (98-107) mmol/L Carbon Dioxide (21-32) mmol/L Anion Gap (5-15) mmol/L BUN (7-18) mg/dL Creatinine (0.70-1.30) mg/dL Est Cr Clr Drug Dosing Estimated GFR (MDRD) Glucose (70-99) mg/dL POC Glucose (70-99) mg/dL Lactic Acid (0.4-2.0) mmol/L Calcium (8.5-10.1) mg/dL Corrected Calcium (8.5-10.1) mg/dL Total Bilirubin (0.2-1.0) mg/dL AST (15-37) U/L ALT (16-63) U/L Alkaline Phosphatase (46-116) U/L Troponin I High Sens (<=76) ng/L C-Reactive Protein (<=0.9) mg/dL Total Protein (6.4-8.2) g/dL Albumin (3.4-5.0) g/dL Globulin Albumin/Globulin Ratio Urine Color (YELLOW) Urine Appearance (CLEAR) Urine pH (5.0-8.0) Ur Specific Garrett Urine Protein (NEGATIVE) mg/dL Urine Glucose (UA) (NEGATIVE) mg/dL Urine Ketones (NEGATIVE) mg/dL Urine Occult Blood (NEGATIVE) Urine Nitrite (NEGATIVE) Urine Bilirubin (NEGATIVE) Urine Urobilinogen (0.2) EU/dL Ur Leukocyte Esterase (NEGATIVE) Urine RBC (NOT SEEN) /HPF Urine WBC (NOT SEEN) /HPF Ur Squamous Epith Cells (NOT SEEN) /HPF Urine Bacteria (NOT SEEN) /HPF Urine Mucus (NOT SEEN) /LPF SARS CoV-2 RNA Rapid GWEN (NEGATIVE) 10/01/20 10/01/20 10/01/20 Range/Units 13:42 13:42 13:42 WBC (4.0-10.0) x10^3/uL RBC (4.5-6.0) x10^6/uL Hgb (14.0-18.0) g/dL Hct (40.0-52.0) % MCV (78.0-93.0) fL MCH (26.0-32.0) pg MCHC (32.0-36.0) g/dL RDW Coeff of Erik (10.0-15.0) % Plt Count (130-400) x10^3/uL Neut % (Auto) (50.0-80.0) % Lymph % (Auto) (25.0-50.0) % Noble % (Auto) (2.0-11.0) % Eos % (Auto) (0.0-4.0) % Baso % (Auto) (0.2-1.2) % PT (9.9-12.5) SEC INR (2.0-3.5) APTT (25.6-32.8) SEC D-Dimer, Quantitative 6.86 H (<=0.58) mg/LFEU Sodium 137 (136-145) mmol/L Potassium 6.0 H D (3.5-5.1) mmol/L Chloride 103 (98-107) mmol/L Carbon Dioxide 22 (21-32) mmol/L Anion Gap 18.0 H (5-15) mmol/L BUN 20 H (7-18) mg/dL Creatinine 1.3 (0.70-1.30) mg/dL Est Cr Clr Drug Dosing TNP Estimated GFR (MDRD) 52 Glucose 210 H (70-99) mg/dL POC Glucose (70-99) mg/dL Lactic Acid 4.9 H* (0.4-2.0) mmol/L Calcium 8.9 (8.5-10.1) mg/dL Corrected Calcium 9.6 (8.5-10.1) mg/dL Total Bilirubin 0.3 (0.2-1.0) mg/dL AST 44 H (15-37) U/L ALT 32 (16-63) U/L Alkaline Phosphatase 192 H (46-116) U/L Troponin I High Sens 250 H* (<=76) ng/L C-Reactive Protein 1.5 H (<=0.9) mg/dL Total Protein 7.2 (6.4-8.2) g/dL Albumin 3.1 L (3.4-5.0) g/dL Globulin 4.1 Albumin/Globulin Ratio 0.76 Urine Color (YELLOW) Urine Appearance (CLEAR) Urine pH (5.0-8.0) Ur Specific Garrett Urine Protein (NEGATIVE) mg/dL Urine Glucose (UA) (NEGATIVE) mg/dL Urine Ketones (NEGATIVE) mg/dL Urine Occult Blood (NEGATIVE) Urine Nitrite (NEGATIVE) Urine Bilirubin (NEGATIVE) Urine Urobilinogen (0.2) EU/dL Ur Leukocyte Esterase (NEGATIVE) Urine RBC (NOT SEEN) /HPF Urine WBC (NOT SEEN) /HPF Ur Squamous Epith Cells (NOT SEEN) /HPF Urine Bacteria (NOT SEEN) /HPF Urine Mucus (NOT SEEN) /LPF SARS CoV-2 RNA Rapid GWEN (NEGATIVE) 10/01/20 10/01/20 10/01/20 Range/Units 16:44 17:30 17:30 WBC (4.0-10.0) x10^3/uL RBC (4.5-6.0) x10^6/uL Hgb (14.0-18.0) g/dL Hct (40.0-52.0) % MCV (78.0-93.0) fL MCH (26.0-32.0) pg MCHC (32.0-36.0) g/dL RDW Coeff of Erik (10.0-15.0) % Plt Count (130-400) x10^3/uL Neut % (Auto) (50.0-80.0) % Lymph % (Auto) (25.0-50.0) % Noble % (Auto) (2.0-11.0) % Eos % (Auto) (0.0-4.0) % Baso % (Auto) (0.2-1.2) % PT (9.9-12.5) SEC INR (2.0-3.5) APTT 25.2 L D (25.6-32.8) SEC D-Dimer, Quantitative (<=0.58) mg/LFEU Sodium (136-145) mmol/L Potassium 5.2 H (3.5-5.1) mmol/L Chloride (98-107) mmol/L Carbon Dioxide (21-32) mmol/L Anion Gap (5-15) mmol/L BUN (7-18) mg/dL Creatinine (0.70-1.30) mg/dL Est Cr Clr Drug Dosing Estimated GFR (MDRD) Glucose (70-99) mg/dL POC Glucose (70-99) mg/dL Lactic Acid 4.2 H* (0.4-2.0) mmol/L Calcium (8.5-10.1) mg/dL Corrected Calcium (8.5-10.1) mg/dL Total Bilirubin (0.2-1.0) mg/dL AST (15-37) U/L ALT (16-63) U/L Alkaline Phosphatase (46-116) U/L Troponin I High Sens (<=76) ng/L C-Reactive Protein (<=0.9) mg/dL Total Protein (6.4-8.2) g/dL Albumin (3.4-5.0) g/dL Globulin Albumin/Globulin Ratio Urine Color (YELLOW) Urine Appearance (CLEAR) Urine pH (5.0-8.0) Ur Specific Garrett Urine Protein (NEGATIVE) mg/dL Urine Glucose (UA) (NEGATIVE) mg/dL Urine Ketones (NEGATIVE) mg/dL Urine Occult Blood (NEGATIVE) Urine Nitrite (NEGATIVE) Urine Bilirubin (NEGATIVE) Urine Urobilinogen (0.2) EU/dL Ur Leukocyte Esterase (NEGATIVE) Urine RBC (NOT SEEN) /HPF Urine WBC (NOT SEEN) /HPF Ur Squamous Epith Cells (NOT SEEN) /HPF Urine Bacteria (NOT SEEN) /HPF Urine Mucus (NOT SEEN) /LPF SARS CoV-2 RNA Rapid GWEN (NEGATIVE) 10/01/20 10/01/20 10/01/20 Range/Units 18:18 20:15 22:03 WBC (4.0-10.0) x10^3/uL RBC (4.5-6.0) x10^6/uL Hgb (14.0-18.0) g/dL Hct (40.0-52.0) % MCV (78.0-93.0) fL MCH (26.0-32.0) pg MCHC (32.0-36.0) g/dL RDW Coeff of Erik (10.0-15.0) % Plt Count (130-400) x10^3/uL Neut % (Auto) (50.0-80.0) % Lymph % (Auto) (25.0-50.0) % Noble % (Auto) (2.0-11.0) % Eos % (Auto) (0.0-4.0) % Baso % (Auto) (0.2-1.2) % PT (9.9-12.5) SEC INR (2.0-3.5) APTT (25.6-32.8) SEC D-Dimer, Quantitative (<=0.58) mg/LFEU Sodium (136-145) mmol/L Potassium (3.5-5.1) mmol/L Chloride (98-107) mmol/L Carbon Dioxide (21-32) mmol/L Anion Gap (5-15) mmol/L BUN (7-18) mg/dL Creatinine (0.70-1.30) mg/dL Est Cr Clr Drug Dosing Estimated GFR (MDRD) Glucose (70-99) mg/dL POC Glucose 175 H (70-99) mg/dL Lactic Acid (0.4-2.0) mmol/L Calcium (8.5-10.1) mg/dL Corrected Calcium (8.5-10.1) mg/dL Total Bilirubin (0.2-1.0) mg/dL AST (15-37) U/L ALT (16-63) U/L Alkaline Phosphatase (46-116) U/L Troponin I High Sens (<=76) ng/L C-Reactive Protein (<=0.9) mg/dL Total Protein (6.4-8.2) g/dL Albumin (3.4-5.0) g/dL Globulin Albumin/Globulin Ratio Urine Color Yellow (YELLOW) Urine Appearance Cloudy H (CLEAR) Urine pH 5.0 (5.0-8.0) Ur Specific Garrett 1.015 Urine Protein Trace H (NEGATIVE) mg/dL Urine Glucose (UA) Negative (NEGATIVE) mg/dL Urine Ketones Negative (NEGATIVE) mg/dL Urine Occult Blood Trace-lysed H (NEGATIVE) Urine Nitrite Negative (NEGATIVE) Urine Bilirubin Negative (NEGATIVE) Urine Urobilinogen 0.2 (0.2) EU/dL Ur Leukocyte Esterase Moderate H (NEGATIVE) Urine RBC 0-5 (NOT SEEN) /HPF Urine WBC >100 H (NOT SEEN) /HPF Ur Squamous Epith Cells Not seen (NOT SEEN) /HPF Urine Bacteria Occasional H (NOT SEEN) /HPF Urine Mucus Not seen (NOT SEEN) /LPF SARS CoV-2 RNA Rapid GWEN Negative (NEGATIVE) 10/02/20 10/02/20 10/02/20 Range/Units 04:10 06:46 08:17 WBC (4.0-10.0) x10^3/uL RBC (4.5-6.0) x10^6/uL Hgb (14.0-18.0) g/dL Hct (40.0-52.0) % MCV (78.0-93.0) fL MCH (26.0-32.0) pg MCHC (32.0-36.0) g/dL RDW Coeff of Erik (10.0-15.0) % Plt Count (130-400) x10^3/uL Neut % (Auto) (50.0-80.0) % Lymph % (Auto) (25.0-50.0) % Noble % (Auto) (2.0-11.0) % Eos % (Auto) (0.0-4.0) % Baso % (Auto) (0.2-1.2) % PT (9.9-12.5) SEC INR (2.0-3.5) APTT 59.3 H D (25.6-32.8) SEC D-Dimer, Quantitative (<=0.58) mg/LFEU Sodium (136-145) mmol/L Potassium (3.5-5.1) mmol/L Chloride (98-107) mmol/L Carbon Dioxide (21-32) mmol/L Anion Gap (5-15) mmol/L BUN (7-18) mg/dL Creatinine (0.70-1.30) mg/dL Est Cr Clr Drug Dosing Estimated GFR (MDRD) Glucose (70-99) mg/dL POC Glucose 177 H 170 H (70-99) mg/dL Lactic Acid (0.4-2.0) mmol/L Calcium (8.5-10.1) mg/dL Corrected Calcium (8.5-10.1) mg/dL Total Bilirubin (0.2-1.0) mg/dL AST (15-37) U/L ALT (16-63) U/L Alkaline Phosphatase (46-116) U/L Troponin I High Sens (<=76) ng/L C-Reactive Protein (<=0.9) mg/dL Total Protein (6.4-8.2) g/dL Albumin (3.4-5.0) g/dL Globulin Albumin/Globulin Ratio Urine Color (YELLOW) Urine Appearance (CLEAR) Urine pH (5.0-8.0) Ur Specific Garrett Urine Protein (NEGATIVE) mg/dL Urine Glucose (UA) (NEGATIVE) mg/dL Urine Ketones (NEGATIVE) mg/dL Urine Occult Blood (NEGATIVE) Urine Nitrite (NEGATIVE) Urine Bilirubin (NEGATIVE) Urine Urobilinogen (0.2) EU/dL Ur Leukocyte Esterase (NEGATIVE) Urine RBC (NOT SEEN) /HPF Urine WBC (NOT SEEN) /HPF Ur Squamous Epith Cells (NOT SEEN) /HPF Urine Bacteria (NOT SEEN) /HPF Urine Mucus (NOT SEEN) /LPF SARS CoV-2 RNA Rapid GWEN (NEGATIVE) Med Orders - Current: Current Medications Albuterol (Albuterol 0.083% 2.5 Mg/3 Ml Neb Soln) 2.5 mg NEB Q4H PRN PRN Reason: Shortness of Breath Arformoterol Tartrate (Arformoterol 15 Mcg/2 Ml Neb Soln) 15 mcg NEB BIDRT [facility] Last Admin: 10/02/20 06:11 Dose: 15 mcg Documented by: Atorvastatin Calcium (Atorvastatin 40 Mg Tab) 40 mg PO BEDTIME [facility] Last Admin: 10/01/20 21:43 Dose: 40 mg Documented by: Budesonide (Budesonide 0.5 Mg/2 Ml Neb Susp) 0.5 mg NEB BIDRT [facility] Last Admin: 10/02/20 06:11 Dose: 0.5 mg Documented by: Ceftriaxone Sodium (Ceftriaxone 2 Gm Vial) 2 gm IVPUSH DAILY [facility] Last Admin: 10/02/20 08:18 Dose: 2 gm Documented by: Clopidogrel Bisulfate (Clopidogrel 75 Mg Tab) 75 mg PO DAILY [facility] Dextrose/Water (50% Dextrose In Water 50 Ml Syringe) 50 ml IVPUSH ASDIRECTED PRN PRN Reason: Hypoglycemia Gabapentin (Gabapentin 400 Mg Cap) 400 mg PO TID [facility] Last Admin: 10/02/20 08:14 Dose: 400 mg Documented by: Glucagon (Glucagon,Human Recombinant 1 Mg Vial) 1 mg IM ASDIRECTED PRN PRN Reason: Hypoglycemia Heparin Sodium/Sodium Chloride (Heparin 25,000 Units In 1/2 Ns 500 Ml) 25,000 units in 500 mls @ 26 mls/hr IV TITRATE [facility]; Protocol Last Titration: 10/02/20 07:50 Dose: 1,000 units/hr, 20 mls/hr Documented by: Dextrose/Sodium Chloride (Dextrose 5%-1/2 Ns) 1,000 mls @ 50 mls/hr IV ASDIRECTED [facility] Last Admin: 10/02/20 00:21 Dose: 50 mls/hr Documented by: Insulin Glargine (Insulin Glarg,Human.Rec.Analog 100 Unit/Ml) 25 unit SUBCUT DAILY [facility] Last Admin: 10/02/20 08:15 Dose: 25 unit Documented by: Levothyroxine Sodium (Levothyroxine 25 Mcg Tab) 12.5 mcg PO ACBREAKFAST [facility] Last Admin: 10/02/20 06:12 Dose: 12.5 mcg Documented by: Metformin HCl (Metformin 500 Mg Tab) 1,000 mg PO BIDMEALS [facility] Last Admin: 10/02/20 08:14 Dose: 1,000 mg Documented by: Montelukast Sodium (Montelukast 10 Mg Tab) 10 mg PO BEDTIME [facility] Nitroglycerin (Nitroglycerin 0.4 Mg Tab.Sl) 0.4 mg SL Q5M PRN PRN Reason: Chest Pain Primidone (Primidone 50 Mg Tab) 150 mg PO TID [facility] Last Admin: 10/02/20 08:14 Dose: 150 mg Documented by: Sodium Chloride (Sodium Chloride 0.9% 10 Ml Syringe) 10 ml FLUSH ASDIRECTED PRN PRN Reason: Keep Vein Open Discontinued Medications Heparin Sodium (Porcine) (Heparin Sodium 5,000 Units/Ml Vial) 5,000 units IVPUSH ONETIME ONE Stop: 10/01/20 19:25 Last Admin: 10/01/20 20:10 Dose: 4,500 units Documented by: Heparin Sodium (Porcine) (Heparin Sodium 100 Units/Ml 5 Ml Syringe) Confirm Administered Dose 500 units .ROUTE .STK-MED ONE Stop: 10/01/20 20:08 Last Admin: 10/01/20 20:00 Dose: 500 units Documented by: Sodium Chloride (Normal Saline) 1,000 mls @ 125 mls/hr IV BOLUS ONE; Protocol Stop: 10/01/20 21:33 Last Infusion: 10/01/20 20:14 Dose: 10 mls/hr Documented by: Sodium Chloride (Normal Saline) 200 mls @ 200 mls/hr IV ONETIME ONE Stop: 10/02/20 00:14 Last Admin: 10/01/20 23:00 Dose: 200 mls/hr Documented by: Iopamidol (Iopamidol 612 Mg/Ml 100 Ml Bottle) 100 ml IVPUSH ONETIME ONE Stop: 10/01/20 16:14 Last Admin: 10/01/20 17:00 Dose: 100 ml Documented by: - Patient Data Lab Results Last 24 hrs: Laboratory Results - last 24 hr 10/01/20 10/01/20 10/01/20 Range/Units 00:10 00:10 13:42 WBC 8.5 (4.0-10.0) x10^3/uL RBC 3.95 L (4.5-6.0) x10^6/uL Hgb 12.6 L (14.0-18.0) g/dL Hct 38.0 L (40.0-52.0) % MCV 96.2 H (78.0-93.0) fL MCH 31.9 (26.0-32.0) pg MCHC 33.2 (32.0-36.0) g/dL RDW Coeff of Erik 16.1 H (10.0-15.0) % Plt Count 236 (130-400) x10^3/uL Neut % (Auto) 66.1 (50.0-80.0) % Lymph % (Auto) 20.3 L (25.0-50.0) % Noble % (Auto) 12.9 H (2.0-11.0) % Eos % (Auto) 0.5 (0.0-4.0) % Baso % (Auto) 0.2 (0.2-1.2) % PT 12.6 H (9.9-12.5) SEC INR 1.1 L (2.0-3.5) APTT 118.2 H* D (25.6-32.8) SEC D-Dimer, Quantitative (<=0.58) mg/LFEU Sodium (136-145) mmol/L Potassium (3.5-5.1) mmol/L Chloride (98-107) mmol/L Carbon Dioxide (21-32) mmol/L Anion Gap (5-15) mmol/L BUN (7-18) mg/dL Creatinine (0.70-1.30) mg/dL Est Cr Clr Drug Dosing Estimated GFR (MDRD) Glucose (70-99) mg/dL POC Glucose (70-99) mg/dL Lactic Acid (0.4-2.0) mmol/L Calcium (8.5-10.1) mg/dL Corrected Calcium (8.5-10.1) mg/dL Total Bilirubin (0.2-1.0) mg/dL AST (15-37) U/L ALT (16-63) U/L Alkaline Phosphatase (46-116) U/L Troponin I High Sens (<=76) ng/L C-Reactive Protein (<=0.9) mg/dL Total Protein (6.4-8.2) g/dL Albumin (3.4-5.0) g/dL Globulin Albumin/Globulin Ratio Urine Color (YELLOW) Urine Appearance (CLEAR) Urine pH (5.0-8.0) Ur Specific Garrett Urine Protein (NEGATIVE) mg/dL Urine Glucose (UA) (NEGATIVE) mg/dL Urine Ketones (NEGATIVE) mg/dL Urine Occult Blood (NEGATIVE) Urine Nitrite (NEGATIVE) Urine Bilirubin (NEGATIVE) Urine Urobilinogen (0.2) EU/dL Ur Leukocyte Esterase (NEGATIVE) Urine RBC (NOT SEEN) /HPF Urine WBC (NOT SEEN) /HPF Ur Squamous Epith Cells (NOT SEEN) /HPF Urine Bacteria (NOT SEEN) /HPF Urine Mucus (NOT SEEN) /LPF SARS CoV-2 RNA Rapid GWEN (NEGATIVE) 10/01/20 10/01/20 10/01/20 Range/Units 13:42 13:42 13:42 WBC (4.0-10.0) x10^3/uL RBC (4.5-6.0) x10^6/uL Hgb (14.0-18.0) g/dL Hct (40.0-52.0) % MCV (78.0-93.0) fL MCH (26.0-32.0) pg MCHC (32.0-36.0) g/dL RDW Coeff of Erik (10.0-15.0) % Plt Count (130-400) x10^3/uL Neut % (Auto) (50.0-80.0) % Lymph % (Auto) (25.0-50.0) % Noble % (Auto) (2.0-11.0) % Eos % (Auto) (0.0-4.0) % Baso % (Auto) (0.2-1.2) % PT (9.9-12.5) SEC INR (2.0-3.5) APTT (25.6-32.8) SEC D-Dimer, Quantitative 6.86 H (<=0.58) mg/LFEU Sodium 137 (136-145) mmol/L Potassium 6.0 H D (3.5-5.1) mmol/L Chloride 103 (98-107) mmol/L Carbon Dioxide 22 (21-32) mmol/L Anion Gap 18.0 H (5-15) mmol/L BUN 20 H (7-18) mg/dL Creatinine 1.3 (0.70-1.30) mg/dL Est Cr Clr Drug Dosing TNP Estimated GFR (MDRD) 52 Glucose 210 H (70-99) mg/dL POC Glucose (70-99) mg/dL Lactic Acid 4.9 H* (0.4-2.0) mmol/L Calcium 8.9 (8.5-10.1) mg/dL Corrected Calcium 9.6 (8.5-10.1) mg/dL Total Bilirubin 0.3 (0.2-1.0) mg/dL AST 44 H (15-37) U/L ALT 32 (16-63) U/L Alkaline Phosphatase 192 H (46-116) U/L Troponin I High Sens 250 H* (<=76) ng/L C-Reactive Protein 1.5 H (<=0.9) mg/dL Total Protein 7.2 (6.4-8.2) g/dL Albumin 3.1 L (3.4-5.0) g/dL Globulin 4.1 Albumin/Globulin Ratio 0.76 Urine Color (YELLOW) Urine Appearance (CLEAR) Urine pH (5.0-8.0) Ur Specific Garrett Urine Protein (NEGATIVE) mg/dL Urine Glucose (UA) (NEGATIVE) mg/dL Urine Ketones (NEGATIVE) mg/dL Urine Occult Blood (NEGATIVE) Urine Nitrite (NEGATIVE) Urine Bilirubin (NEGATIVE) Urine Urobilinogen (0.2) EU/dL Ur Leukocyte Esterase (NEGATIVE) Urine RBC (NOT SEEN) /HPF Urine WBC (NOT SEEN) /HPF Ur Squamous Epith Cells (NOT SEEN) /HPF Urine Bacteria (NOT SEEN) /HPF Urine Mucus (NOT SEEN) /LPF SARS CoV-2 RNA Rapid GWEN (NEGATIVE) 10/01/20 10/01/20 10/01/20 Range/Units 16:44 17:30 17:30 WBC (4.0-10.0) x10^3/uL RBC (4.5-6.0) x10^6/uL Hgb (14.0-18.0) g/dL Hct (40.0-52.0) % MCV (78.0-93.0) fL MCH (26.0-32.0) pg MCHC (32.0-36.0) g/dL RDW Coeff of Erik (10.0-15.0) % Plt Count (130-400) x10^3/uL Neut % (Auto) (50.0-80.0) % Lymph % (Auto) (25.0-50.0) % Noble % (Auto) (2.0-11.0) % Eos % (Auto) (0.0-4.0) % Baso % (Auto) (0.2-1.2) % PT (9.9-12.5) SEC INR (2.0-3.5) APTT 25.2 L D (25.6-32.8) SEC D-Dimer, Quantitative (<=0.58) mg/LFEU Sodium (136-145) mmol/L Potassium 5.2 H (3.5-5.1) mmol/L Chloride (98-107) mmol/L Carbon Dioxide (21-32) mmol/L Anion Gap (5-15) mmol/L BUN (7-18) mg/dL Creatinine (0.70-1.30) mg/dL Est Cr Clr Drug Dosing Estimated GFR (MDRD) Glucose (70-99) mg/dL POC Glucose (70-99) mg/dL Lactic Acid 4.2 H* (0.4-2.0) mmol/L Calcium (8.5-10.1) mg/dL Corrected Calcium (8.5-10.1) mg/dL Total Bilirubin (0.2-1.0) mg/dL AST (15-37) U/L ALT (16-63) U/L Alkaline Phosphatase (46-116) U/L Troponin I High Sens (<=76) ng/L C-Reactive Protein (<=0.9) mg/dL Total Protein (6.4-8.2) g/dL Albumin (3.4-5.0) g/dL Globulin Albumin/Globulin Ratio Urine Color (YELLOW) Urine Appearance (CLEAR) Urine pH (5.0-8.0) Ur Specific Garrett Urine Protein (NEGATIVE) mg/dL Urine Glucose (UA) (NEGATIVE) mg/dL Urine Ketones (NEGATIVE) mg/dL Urine Occult Blood (NEGATIVE) Urine Nitrite (NEGATIVE) Urine Bilirubin (NEGATIVE) Urine Urobilinogen (0.2) EU/dL Ur Leukocyte Esterase (NEGATIVE) Urine RBC (NOT SEEN) /HPF Urine WBC (NOT SEEN) /HPF Ur Squamous Epith Cells (NOT SEEN) /HPF Urine Bacteria (NOT SEEN) /HPF Urine Mucus (NOT SEEN) /LPF SARS CoV-2 RNA Rapid GWEN (NEGATIVE) 10/01/20 10/01/20 10/01/20 Range/Units 18:18 20:15 22:03 WBC (4.0-10.0) x10^3/uL RBC (4.5-6.0) x10^6/uL Hgb (14.0-18.0) g/dL Hct (40.0-52.0) % MCV (78.0-93.0) fL MCH (26.0-32.0) pg MCHC (32.0-36.0) g/dL RDW Coeff of Erik (10.0-15.0) % Plt Count (130-400) x10^3/uL Neut % (Auto) (50.0-80.0) % Lymph % (Auto) (25.0-50.0) % Noble % (Auto) (2.0-11.0) % Eos % (Auto) (0.0-4.0) % Baso % (Auto) (0.2-1.2) % PT (9.9-12.5) SEC INR (2.0-3.5) APTT (25.6-32.8) SEC D-Dimer, Quantitative (<=0.58) mg/LFEU Sodium (136-145) mmol/L Potassium (3.5-5.1) mmol/L Chloride (98-107) mmol/L Carbon Dioxide (21-32) mmol/L Anion Gap (5-15) mmol/L BUN (7-18) mg/dL Creatinine (0.70-1.30) mg/dL Est Cr Clr Drug Dosing Estimated GFR (MDRD) Glucose (70-99) mg/dL POC Glucose 175 H (70-99) mg/dL Lactic Acid (0.4-2.0) mmol/L Calcium (8.5-10.1) mg/dL Corrected Calcium (8.5-10.1) mg/dL Total Bilirubin (0.2-1.0) mg/dL AST (15-37) U/L ALT (16-63) U/L Alkaline Phosphatase (46-116) U/L Troponin I High Sens (<=76) ng/L C-Reactive Protein (<=0.9) mg/dL Total Protein (6.4-8.2) g/dL Albumin (3.4-5.0) g/dL Globulin Albumin/Globulin Ratio Urine Color Yellow (YELLOW) Urine Appearance Cloudy H (CLEAR) Urine pH 5.0 (5.0-8.0) Ur Specific Garrett 1.015 Urine Protein Trace H (NEGATIVE) mg/dL Urine Glucose (UA) Negative (NEGATIVE) mg/dL Urine Ketones Negative (NEGATIVE) mg/dL Urine Occult Blood Trace-lysed H (NEGATIVE) Urine Nitrite Negative (NEGATIVE) Urine Bilirubin Negative (NEGATIVE) Urine Urobilinogen 0.2 (0.2) EU/dL Ur Leukocyte Esterase Moderate H (NEGATIVE) Urine RBC 0-5 (NOT SEEN) /HPF Urine WBC >100 H (NOT SEEN) /HPF Ur Squamous Epith Cells Not seen (NOT SEEN) /HPF Urine Bacteria Occasional H (NOT SEEN) /HPF Urine Mucus Not seen (NOT SEEN) /LPF SARS CoV-2 RNA Rapid GWEN Negative (NEGATIVE) 10/02/20 10/02/20 10/02/20 Range/Units 04:10 06:46 08:17 WBC (4.0-10.0) x10^3/uL RBC (4.5-6.0) x10^6/uL Hgb (14.0-18.0) g/dL Hct (40.0-52.0) % MCV (78.0-93.0) fL MCH (26.0-32.0) pg MCHC (32.0-36.0) g/dL RDW Coeff of Erik (10.0-15.0) % Plt Count (130-400) x10^3/uL Neut % (Auto) (50.0-80.0) % Lymph % (Auto) (25.0-50.0) % Noble % (Auto) (2.0-11.0) % Eos % (Auto) (0.0-4.0) % Baso % (Auto) (0.2-1.2) % PT (9.9-12.5) SEC INR (2.0-3.5) APTT 59.3 H D (25.6-32.8) SEC D-Dimer, Quantitative (<=0.58) mg/LFEU Sodium (136-145) mmol/L Potassium (3.5-5.1) mmol/L Chloride (98-107) mmol/L Carbon Dioxide (21-32) mmol/L Anion Gap (5-15) mmol/L BUN (7-18) mg/dL Creatinine (0.70-1.30) mg/dL Est Cr Clr Drug Dosing Estimated GFR (MDRD) Glucose (70-99) mg/dL POC Glucose 177 H 170 H (70-99) mg/dL Lactic Acid (0.4-2.0) mmol/L Calcium (8.5-10.1) mg/dL Corrected Calcium (8.5-10.1) mg/dL Total Bilirubin (0.2-1.0) mg/dL AST (15-37) U/L ALT (16-63) U/L Alkaline Phosphatase (46-116) U/L Troponin I High Sens (<=76) ng/L C-Reactive Protein (<=0.9) mg/dL Total Protein (6.4-8.2) g/dL Albumin (3.4-5.0) g/dL Globulin Albumin/Globulin Ratio Urine Color (YELLOW) Urine Appearance (CLEAR) Urine pH (5.0-8.0) Ur Specific Garrett Urine Protein (NEGATIVE) mg/dL Urine Glucose (UA) (NEGATIVE) mg/dL Urine Ketones (NEGATIVE) mg/dL Urine Occult Blood (NEGATIVE) Urine Nitrite (NEGATIVE) Urine Bilirubin (NEGATIVE) Urine Urobilinogen (0.2) EU/dL Ur Leukocyte Esterase (NEGATIVE) Urine RBC (NOT SEEN) /HPF Urine WBC (NOT SEEN) /HPF Ur Squamous Epith Cells (NOT SEEN) /HPF Urine Bacteria (NOT SEEN) /HPF Urine Mucus (NOT SEEN) /LPF SARS CoV-2 RNA Rapid GWEN (NEGATIVE) Result Diagrams: 10/01/20 13:42 10/01/20 17:30 Sepsis Event Note - Evaluation Sepsis Screening Result: No Definite Risk - Focused Exam Vital Signs: Vital Signs Temp Pulse Resp BP Pulse Ox Pulse Ox 10/02/20 06:00 97.8 F 96 18 96/62 95 10/02/20 03:52 98 88/60 L 96 10/02/20 02:00 102 H 22 H 87/57 L 95 10/02/20 01:48 94 L 10/02/20 01:03 103 H 99/58 L 94 L 10/02/20 00:01 104 H 20 94/54 L 96 10/01/20 22:33 108 H 22 H 89/52 L 95 - Problem List Review Problem List Initiated/Reviewed/Updated: Yes - My Orders Last 24 Hours: My Active Orders 10/01/20 Dinner Clear Liquid Diet [DIET] 10/01/20 19:30 Heparin Sodium/0.45% NaCl [Heparin 25,000 Units in 1/2 NS 500 ML] 25,000 units in 500 ml IV TITRATE 10/01/20 19:37 RT Aerosol Therapy [RC] 07,20 10/01/20 20:24 Dextrose 50% in Water 50 ml IVPUSH ASDIRECTED PRN Glucagon,Human Recombinant [GlucaGen] 1 mg IM ASDIRECTED PRN 10/01/20 20:28 RT Aerosol Therapy [RC] 07,20 Albuterol [Proventil Neb Soln] 2.5 mg NEB Q4H PRN 10/01/20 20:29 Nitroglycerin [Nitrostat] 0.4 mg SL Q5M PRN 10/01/20 20:38 Patient Status [ADT] Routine Oxygen Therapy [RC] 08,20 VTE/DVT Education [RC] .PRN Vital Signs [RC] 02,06,10,14,18,22 Glucose Management Sub Q Reflex [OM.PC] Click to Edit Resuscitation Status Routine 10/01/20 20:41 Intake and Output [RC] ,18 Pulse Oximetry [RC] 02,06,10,14,18,22 10/01/20 20:42 Diabetes Education [RC] Click to Edit 10/01/20 20:56 CULTURE MRSA SURVEY [RM] Routine 10/01/20 21:00 Arformoterol [Brovana] 15 mcg NEB BIDRT Budesonide [Pulmicort] 0.5 mg NEB BIDRT atorvaSTATin [Lipitor] 40 mg PO BEDTIME 10/01/20 23:11 Isolation [COMM] Stat 10/01/20 23:21 Blood Glucose Check, Bedside [RC] ,,17,20 10/02/20 00:15 Dextrose 5%-0.45% NaCl [Dextrose 5%-1/2 NS] 1,000 ml IV ASDIRECTED 10/02/20 07:00 Levothyroxine 12.5 mcg PO ACBREAKFAST 10/02/20 08:00 Gabapentin [Neurontin] 400 mg PO TID Insulin Glarg,Human.Rec.Analog [LantUS] 25 unit SUBCUT DAILY Primidone [Mysoline] 150 mg PO TID metFORMIN [Glucophage] 1,000 mg PO BIDMEALS 10/02/20 12:00 BMP [BASIC METABOLIC PANEL,BMP] [CHEM] Timed CBC W/O DIFF,HEMOGRAM [HEME] Q3D PTT,PARTIAL THROMBOPLSTIN TIME [COAG] Timed 10/02/20 16:00 PTT,PARTIAL THROMBOPLSTIN TIME [COAG] Timed 10/02/20 20:00 Montelukast [Singulair] 10 mg PO BEDTIME 10/03/20 08:00 Clopidogrel [Plavix] 75 mg PO DAILY 10/05/20 07:00 CBC W/O DIFF,HEMOGRAM [HEME] Q3D 10/08/20 07:00 CBC W/O DIFF,HEMOGRAM [HEME] Q3D 10/11/20 07:00 CBC W/O DIFF,HEMOGRAM [HEME] Q3D 10/14/20 07:00 CBC W/O DIFF,HEMOGRAM [HEME] Q3D 10/17/20 07:00 CBC W/O DIFF,HEMOGRAM [HEME] Q3D 10/20/20 07:00 CBC W/O DIFF,HEMOGRAM [HEME] Q3D
[2020-10-02 12:30] LABS: ANION GAP 18.9 mmol/L (5-15)
[2020-10-02] MEDS: atorvaSTATin 40 MG Tab PO SCH (20:09)
[2020-10-02] MEDS: Montelukast 10 MG Tab PO SCH (20:09)
[2020-10-02] MEDS: Heparin Sodium/0.45% NaCl 25,000 UNITS/500 ML BAG IV SCH (22:07)
[2020-10-03] MEDS: Budesonide 0.5 MG/2 ML Neb Susp NEB SCH ×2 (06:18→19:45)
[2020-10-03] MEDS: Levothyroxine 25 MCG Tab PO SCH (06:19)
[2020-10-03] MEDS: Arformoterol 15 MCG/2 ML Neb Soln NEB SCH ×2 (06:19→19:45)
[2020-10-03] MEDS ORDERED: Clopidogrel 75 MG Tab PO SCH (08:00)
[2020-10-03] MEDS: Primidone 50 MG Tab PO SCH ×3 (08:21→19:47)
[2020-10-03] MEDS: metFORMIN 500 MG Tab PO SCH ×2 (08:22→17:17)
[2020-10-03] MEDS: Gabapentin 400 MG Cap PO SCH ×3 (08:23→19:46)
[2020-10-03] MEDS: Insulin Glarg,Human.Rec.Analog 100 Unit/ML SUBCUT SCH (08:27)
[2020-10-03] MEDS: cefTRIAXone 2 GM Vial IVPUSH SCH (08:30)
[2020-10-03] MEDS ORDERED: Warfarin 5 MG Tab PO ONE ×2 (08:38→20:00)
--- NOTE | 2020-10-03 09:28 | PCM.SN.2 ---
- Free Text/Narrative Note: S; Feels well, no recurrent spells of dyspnea O:Trmp 97.8 pulse 97 BP 111/64 O2 sat 95 % on 2 l.min Lungs: clear Cor: no rubs,murmurs, gallops ABD: Soft and nontender Neuro: awake, alert, moving all ext equally; has significant tremor, some choking with rice drier foods( old problems) PTT yesterday 53.7, this AM 71.1 on 1200 units/hr IMP: 1. No recurrent PE; anticoagulation level therapeutic, suspect heparin need decreasing with decreasing clot load decrease drip to 1100 units/hour, check PTT in 6 hours, start Coumadin0 NO PLAVIX for now 2/ Parkinsonism with dysphagia: switch to pureed diet. 3. ? Pneumonia- no cough, fever or chills- will stop rocephin
[2020-10-03] MEDS: Montelukast 10 MG Tab PO SCH (19:46)
[2020-10-03] MEDS: atorvaSTATin 40 MG Tab PO SCH (19:46)
[2020-10-03] MEDS: Heparin Sodium/0.45% NaCl 25,000 UNITS/500 ML BAG IV SCH (19:49)
[2020-10-04] MEDS: Levothyroxine 25 MCG Tab PO SCH (06:06)
[2020-10-04] MEDS: Budesonide 0.5 MG/2 ML Neb Susp NEB SCH ×2 (07:15→19:36)
[2020-10-04] MEDS: Arformoterol 15 MCG/2 ML Neb Soln NEB SCH ×2 (07:15→19:36)
[2020-10-04 07:17] LABS: PTT,PARTIAL THROMBOPLSTIN TIME 67.2 SEC (25.6-32.8)
[2020-10-04] MEDS: Primidone 50 MG Tab PO SCH ×3 (08:36→19:36)
[2020-10-04] MEDS: Gabapentin 400 MG Cap PO SCH ×3 (08:37→19:37)
[2020-10-04] MEDS: Insulin Glarg,Human.Rec.Analog 100 Unit/ML SUBCUT SCH ×2 (08:37→08:40)
[2020-10-04] MEDS: metFORMIN 500 MG Tab PO SCH (08:40)
--- NOTE | 2020-10-04 11:39 | PN ---
Progress Note for TONY PERDOMO Date: 10/04/2020 Room #: VM.215 SUBJECTIVE: This is hospital day #4 on an 85-year-old admitted with bilateral pulmonary embolism and acute hypoxic respiratory failure. The patient has a history of recurrent DVTs, but unfortunately had a fall with concern for a subdural hematoma in August and was also on Plavix due to an ST-elevation [place] in July. Therefore, his warfarin was stopped and discussion was had with his family. Given that he had had DVTs previously, the thought was if he did have a clot again, it would likely be in his legs, but in 2016, he also had a bilateral PE and he also has [facility] The patient had actually been just fine on Sunday morning and then became acutely short of breath with tachycardia and low blood pressure. He states now his only concern is a sore on his foot. He is not having any chest pain or shortness of breath. He has had some trouble with swallowing, but that is not a new issue. He does not feel like he got enough to eat for breakfast today and he would like more. He had had 50% of his meal, but it is because he did not like oatmeal. He is not having any diarrhea. No bleeding concerns. He was started on IV heparin. He was given his first dose of Coumadin 10 mg yesterday. Had been given Rocephin due to concern for pneumonia but this was stopped yesterday. OBJECTIVE: Vital Signs: His weight 89.5 kg, temperature 98.5, pulse 86, blood pressure 96/60, respiratory rate 20. O2 of 91 on 2 L, up to 95 on 2 L earlier this morning. Actually, first weight this morning was 87.3 kg, so we will have to reconfirm with nursing. General: He is in no acute distress. Heart: Regular rate and rhythm. Lungs: Lung sounds are clear to auscultation bilaterally without crackles or wheezes. Abdomen: Nondistended. Positive bowel sounds. Soft, nontender. Extremities: Warm and dry. No edema. No calf tenderness. Mental Status: He is alert. He is orientated that he is in the hospital, but his short-term memory is quite poor. Skin: Does show him to have a small sore on the right heel. No blisters or deep ulcers noted. LAB WORK: His PT was 13, INR 1.2 today, PTT 67.2, and glucose was 138. ASSESSMENT AND PLAN: 1. Acute bilateral pulmonary embolism due to being off anticoagulation for intracranial bleeding. He has not had any headaches or vision changes to suggest further bleeding. He does have a history of recurrent falls, but has not had any in the hospital. We will continue the IV heparin. I will give him 7.5 of Coumadin today. He was previously on 7.5 and 5 mg alternating doses. I will recheck INR on Sunday. 2. Dysphagia and history of pneumonia. Will have his diet as tolerated. We will encourage him to eat. I did not consult speech as he has already signed a shared risk at [facility] and he got upset at the care center with that therapy. 3. Type 2 diabetes. Blood sugars are under good control. Since the D5 is being stopped along with also his metformin, I am going to decrease his Lantus to 20 units daily and continue close monitoring. 4. Hypothyroidism. He is on treatment for that. 5. Chronic lung disease with chronic obstructive pulmonary disease. He is on his home nebulizers. 6. Parkinson's. He is on his primidone. His tremor is actually pretty evident on exam. [facility] due to illness I will initiate Sinemet here and see how it goes. 7. Prostate cancer on Lupron PLAN: The patient will continue acute cares with close monitoring of his PTTs, and other lab work will be also checked for kidney, liver, and blood counts. We will make sure he has adequate intake for diet and continue monitoring of blood sugars. Head CT and if ok may be able to transition to Lovenox by tomorrow. Did update the nurse at [facility] so she can update his per patient request. MKA: 10/04/2020 10:46:40 MODL: 10/04/2020 11:32:25 /[id number] FAINA
--- NOTE | 2020-10-04 13:58 | CT ---
[id number] CT/CT Head WO IV EXAM: CT Head WO IV CLINICAL DATA: FOLLOW-UP SUBDURAL HEMORRHAGE. PATIENT HAS POSSIBLE COMPARISON STUDY: Multiple priors, most recent from September 06, 2020. FINDINGS: Resolution of previously seen small residual parafalcine hemorrhage since the prior examination. No new areas of hemorrhage or other acute finding since the prior examination. Bilateral symmetric parenchymal atrophy and white matter gliosis. Findings are nonspecific but commonly seen as sequela of chronic small vessel disease. No significant change in appearance compared to the prior examination. Calvarium intact. Paranasal sinus mucosal thickening. IMPRESSION: Resolution of previously seen small parafalcine hemorrhage on prior examination from September 06, 2020. No new acute findings or significant change since that examination. August Feldman MD 10/04/20 [id number] Thank you for allowing us to participate in the care of your patient.
[2020-10-04] MEDS: Clopidogrel 75 MG Tab PO SCH (16:30)
--- NOTE | 2020-10-04 16:47 | PCM.SN.2 ---
- Free Text/Narrative Note: Since now medically stable and head CT ok so plavix restarted today and transition of the Heparin (particularly since last draw was subtherapeutic) to Lovenox 80 BID planned. I did discuss this with [place] [facility] today regarding this plan. Lab ordered for tomorrow. Message left for his family.
[2020-10-04] MEDS: Enoxaparin 80 MG/0.8 ML Syringe SUBCUT SCH (18:59)
[2020-10-04] MEDS: atorvaSTATin 40 MG Tab PO SCH (19:36)
[2020-10-04] MEDS: Montelukast 10 MG Tab PO SCH (19:36)
[2020-10-04] MEDS ORDERED: Warfarin 5 MG Tab PO ONE (20:00)
[2020-10-05] MEDS: Levothyroxine 25 MCG Tab PO SCH (06:21)
[2020-10-05] MEDS: Enoxaparin 80 MG/0.8 ML Syringe SUBCUT SCH ×2 (06:22→20:51)
[2020-10-05] MEDS: Budesonide 0.5 MG/2 ML Neb Susp NEB SCH ×2 (07:03→20:52)
[2020-10-05] MEDS: Arformoterol 15 MCG/2 ML Neb Soln NEB SCH ×2 (07:03→20:50)
[2020-10-05 07:24] LABS: ANION GAP 11.1 mmol/L (5-15); CHLORIDE,CL 105 mmol/L (98-107); SODIUM,NA 138 mmol/L (136-145)
[2020-10-05] MEDS: Gabapentin 400 MG Cap PO SCH ×3 (07:37→20:51)
[2020-10-05] MEDS: Primidone 50 MG Tab PO SCH ×3 (07:37→20:51)
[2020-10-05] MEDS: Insulin Glarg,Human.Rec.Analog 100 Unit/ML SUBCUT SCH (07:37)
[2020-10-05] MEDS: Clopidogrel 75 MG Tab PO SCH (07:37)
--- NOTE | 2020-10-05 13:50 | PN ---
Progress Note for TONY PERDOMO Date: 10/05/2020 Room #: VM.215 SUBJECTIVE: This is hospital day #5 on an 85-year-old admitted with submassive bilateral PEs with some evidence of right heart strain. The patient has not had any chest pain. His oxygen has been further weaned down to 1 L. He actually states he is doing quite well and appreciates the good care he is getting. He has not been short of breath or coughing. He ate 100% of breakfast today, 25% to 100% of meals yesterday. He is not having diarrhea, but did have a bowel movement a couple days ago. He has not had that much oral intake. He does have some history of trouble swallowing, but staff at the Care Center felt he would just get aggravated if we tried to work on his swallowing again. He was also started on his Plavix and switched over from the heparin drip to Lovenox, which he is tolerating without problems. He is on Primidone and his tremor is much better today. OBJECTIVE: Vital Signs: His temperature this morning 98, weight 89.1 kg, pulse 93, blood pressure 102/56, respiratory rate 18, and O2 92 on 1 L. General: He is in no acute distress. Heart: Regular rate and rhythm. S1, S2 without murmurs. Lungs: Sounds are clear to auscultation bilaterally without crackles or wheezes. Abdomen: Nondistended, nontender. Extremities: Warm and dry. No edema. He does have a skin tear over his right elbow, which was examined, without surrounding redness or warmth. Mental status: He is alert. He is aware he is in the hospital. Short-term memory is poor. This is his baseline. LABORATORY DATA: Lab work was done this morning, which did show him to have a white count of 8.9, hemoglobin 10.9, and platelets 177, all fairly stable. His sodium 138, potassium 4.1, chloride 105, bicarb 26, BUN 11, creatinine 1, glucose 170, he was between 138 and 195 yesterday. Calcium 8.1, bilirubin normal at 0.5, AST 34, ALT 41, albumin 2.3, alkaline phosphatase 235. INR 1.4. He was just initiated on Coumadin 10 mg on Sunday. ASSESSMENT AND PLAN: 1. Acute bilateral pulmonary embolism with right heart strain. The patient will go on his previous doses of Coumadin alternating between 7.5 and 5 mg. He will get the 5 mg dose today. We will repeat an INR tomorrow. Anticipate that he will be able to be discharged back to [facility] on Lovenox bridging tomorrow. 2. Dysphagia and history of pneumonia. He is no longer needing antibiotics. He did not have a pneumonia on this admission. He is not going to have further speech consult. We will continue diet as tolerated. He has already signed shared risks at the [facility]. 3. Type 2 diabetes. Blood sugars are elevated. I am going to increase his Lantus up to 25 units as he is still off metformin. 4. Hypothyroidism. He will continue his home medications. 5. Chronic lung disease with chronic obstructive pulmonary disease. He will continue his home medications. 6. Parkinson's. He will continue the primidone. I actually did not start the Sinemet here, so since he is doing better today, I will leave that for followup at the [place]. 7. Prostate cancer, on Lupron. PLAN: The patient will continue acute cares with Lovenox and Coumadin dosing. We will repeat lab work again tomorrow. We will get his COVID test prior to transition back to [facility]. He will be also up and working with therapies here. MKA: 10/05/2020 13:03:48 MODL: 10/05/2020 13:41:35 /[id number]
[2020-10-05] MEDS ORDERED: Warfarin 5 MG Tab PO SCH (20:00)
[2020-10-05] MEDS: Montelukast 10 MG Tab PO SCH (20:51)
[2020-10-05] MEDS: atorvaSTATin 40 MG Tab PO SCH (20:51)
[2020-10-06] MEDS: Budesonide 0.5 MG/2 ML Neb Susp NEB SCH (06:27)
[2020-10-06] MEDS: Levothyroxine 25 MCG Tab PO SCH (06:27)
[2020-10-06] MEDS: Arformoterol 15 MCG/2 ML Neb Soln NEB SCH (06:27)
[2020-10-06 07:31] LABS: CHLORIDE,CL 104 mmol/L (98-107); SODIUM,NA 138 mmol/L (136-145)
[2020-10-06 07:33] LABS: ANION GAP 13.1 mmol/L (5-15)
[2020-10-06] MEDS: Enoxaparin 80 MG/0.8 ML Syringe SUBCUT SCH (08:19)
[2020-10-06] MEDS: Clopidogrel 75 MG Tab PO SCH (08:20)
[2020-10-06] MEDS: Primidone 50 MG Tab PO SCH (08:20)
[2020-10-06] MEDS: Gabapentin 400 MG Cap PO SCH (08:20)
[2020-10-06] MEDS: Insulin Glarg,Human.Rec.Analog 100 Unit/ML SUBCUT SCH (08:21)
[2020-10-06] MEDS ORDERED: Warfarin 2.5 MG Tab PO SCH (20:00)
--- NOTE | 2020-10-07 00:33 | DISCH ---
PRIMARY DISCHARGE DIAGNOSES: 1. An acute bilateral submassive pulmonary embolism with right heart strain. 2. History of deep vein thrombosis, recurrent with PE, off Coumadin due to a fall and subdural hematoma 1 month ago. 3. Dysphagia and history of pneumonia. The patient did not have a pneumonia on this admission, although he received some IV Rocephin. He feels his swallowing is at his baseline. He does have some mild thickener used. We will continue the same cares at the [facility]. We did not pursue a speech consult on this admission. 4. Acute hypoxic respiratory failure secondary to the bilateral pulmonary embolisms. 5. Underlying chronic obstructive pulmonary disease, stable without exacerbation on home medications. 6. Parkinson disease, on primidone. We did not add any medications here. 7. Prostate cancer. 8. Type 2 diabetes on insulin, controlled. 9. Hypothyroidism, treated. 10.Subdural hematoma. No further evidence on his CT done on this admission. 11.Coronary artery disease with recent STEMI the end of July. His Plavix was resumed. He is tolerating that without bleeding. 12.Recent hospital admit also for cholecystitis status post surgery. REASON FOR ADMISSION: On the date of admission, this 85-year-old male who had been taken off his Coumadin, but continued on Plavix due to recurrent falls and a CT showing concern for head bleed, had an acute event where he was hypotensive, tachycardic, hypoxic, and appeared "blue" per the nurse, was sent to the emergency room and evaluated. His D-dimer was over [address] PE protocol which showed bilateral PEs. The patient was initiated on IV heparin. His Coumadin dose was started on the 10 mg with his home dosing being a combination of 5 and 7.5. The patient then did receive 7.5 mg on Sunday and 5 mg yesterday and his INR came up to 1.8 today. Because the patient's condition had stabilized with the IV heparin on , I did a head CT which was showing no bleeding and initiated him on the IV Lovenox 80 mg twice daily, restarted his Plavix. The patient has been tolerating this for the last several days without any bleeding issues. His breathing has improved. His oxygen requirements which were once up to 4 L are now off and maintaining around 91%. He is not having any chest pain. No headaches. No coughing. Overall, he feels well and he is anxious to return to the longterm where his lives. He does have some tremor consistent with his underlying Parkinson's. The patient was encouraged to call and get help instead of getting up and walking on his own, which has led to his recurrent falls. His lab work was monitored. His hemoglobin was stable at 10.9 on discharge. His kidney function was stable with a creatinine of 1. Blood sugars were all in the 150-195 range over the last 24 hours. He did have some insulin adjustments during his stay, but in the end he resumed the 25 units of Lantus that he was on previously and he can resume his metformin also on discharge. DISCHARGE PLANS AND INSTRUCTIONS: The patient is returning to [facility]. He will have an INR tomorrow. If therapeutic, he will take his last dose of Lovenox tomorrow night. If under 2, he will need another dose of Lovenox the morning of the and another INR draw in the pharmacy, we will communicate this also with the [facility]. His Coumadin dose today is 7.5 mg, tomorrow it would be 5 mg, but the [facility] may adjust dosing depending on his INR. No other lab work is due unless previously scheduled. I will follow up with him for 30-day assessment on next longterm rounds. He may use oxygen 1 L to keep sats over 90%. If needed, he will have PT and OT at the longterm. He will resume his previous medications. He already resumed the Plavix. He will notify me if further falls, head injury, changes in mental status, severe headaches. There is no CT on file now for followup at [facility] as previously planned because it was done during this admission. DISCHARGE PHYSICAL EXAMINATION: Vital Signs: Discharging vitals include weight 84 kg, temp 98.7, pulse 85, blood pressure 95/52, respiratory rate 20, and O2 91 on room air, and his blood pressures have consistently been between 90-120 systolic, but mostly in the 108 range during his stay. Heart: Regular rate and rhythm without murmur. Lungs: His lung sounds are clear to auscultation bilaterally without crackles or wheezes. Abdomen: Nondistended. Positive bowel sounds. Soft, nontender. Extremities: Warm and dry. No edema. No calf tenderness. Mental Status: He is alert. He is orientated x3. He is aware he is in the hospital in [place]. He is polite, answering questions. Greater than 30 minutes spent on this discharge process. MKA: 10/06/2020 10:20:42 MODL: 10/07/2020 00:25:39 /[id number]
--- NOTE | 2020-10-08 12:20 | PCM.EKG ---
#1 Interpretation EKG Date: 10/01/20 Rhythm: Other (sinus tachycardia) [place]: Normal P-Wave: Present QRS: Normal ST-T: Normal Comparison: No Change
== END 2020-10-06 10:30 | DRG 175 ==
LOC: VM.ED 13:22 → VM.MS 18:18
PROVIDERS: ADMIT Internal Medicine; ATTEND Internal Medicine
DX: I26.99 Other pulmonary embolism without acute cor pulmonale (principal); J96.01 Acute respiratory failure with hypoxia; J45.909 Unspecified asthma, uncomplicated; N40.0 Benign prostatic hyperplasia without lower urinary tract symptoms; I62.03 Nontraumatic chronic subdural hemorrhage; J44.9 Chronic obstructive pulmonary disease, unspecified; C61 Malignant neoplasm of prostate; G20 Parkinson's disease; E11.9 Type 2 diabetes mellitus without complications; E03.9 Hypothyroidism, unspecified; Z20.822 Contact with and (suspected) exposure to COVID-19; I25.10 Atherosclerotic heart disease of native coronary artery without angina pectoris; R13.10 Dysphagia, unspecified; I10 Essential (primary) hypertension; E78.5 Hyperlipidemia, unspecified; G31.84 Mild cognitive impairment of uncertain or unknown etiology; D64.9 Anemia, unspecified; Z79.890 Hormone replacement therapy; Z79.01 Long term (current) use of anticoagulants; I25.2 Old myocardial infarction; Z87.01 Personal history of pneumonia (recurrent); Z86.718 Personal history of other venous thrombosis and embolism; Z79.899 Other long term (current) drug therapy; Z79.4 Long term (current) use of insulin; Z91.030 Bee allergy status
CPT/HCPCS: 36415; 71045; 71275; 80053; 83605 ×2; 84132; 84484; 85025; 85379; 85610; 85730; 86140; 87040 ×2; 93005; 99285; J0696; J7030; Q9967; 70450; 80048; 81001; 82274; 82947; 85027; 94640; 94760; 97161-GP; 99284; A9270-GY; G0328; J1642; J1644; J1650; J1815-GY; J7042; U0002

== ENCOUNTER 2023-12-08 09:13 | Emergency (ER) | payer MEDICARE, MEDICAID ==
[2023-12-08 09:27] LABS: BASOPHILS PERCENT AUTO 0.3 % (0.2-1.2); EOSINOPHILS ABSOLUTE AUTO 0.8 x10^3/uL (0.0-0.5); EOSINOPHILS PERCENT AUTO 8.7 % (0.0-4.0); HEMATOCRIT 42.4 % (40.0-52.0); HEMOGLOBIN 14.3 g/dL (14.0-18.0); IMMATURE GRAN ABSOLUTE AUTO 0.03 x10^3/uL (0.00-0.07); LYMPHOCYTES PERCENT AUTO 30.5 % (25.0-50.0); MEAN CORPUSCULAR HEMOGLOBIN 31.6 pg (26.0-32.0); MEAN CORPUSCULAR HGB CONC 33.7 g/dL (32.0-36.0); MEAN CORPUSCULAR VOLUME 93.8 fL (78.0-93.0); MONOCYTES PERCENT AUTO 10.5 % (2.0-11.0); NEUTROPHILS ABSOLUTE AUTO 4.8 x10^3/uL (1.8-7.7); NEUTROPHILS PERCENT AUTO 49.7 % (50.0-80.0); PLATELET COUNT,PLT 205 x10^3/uL (130-400); RED BLOOD CELL COUNT 4.52 x10^6/uL (4.5-6.0); WHITE BLOOD CELL COUNT,WBC 9.7 x10^3/uL (4.0-10.0)
[2023-12-08 09:43] LABS: A/G RATIO 0.74; ALANINE AMINOTRANSFERASE,ALT 14 U/L (16-63); ALBUMIN 3.2 g/dL (3.4-5.0); ALKALINE PHOSPHATASE 166 U/L (46-116); ASPARTATE AMNIOTRANSFERASE,AST 19 U/L (15-37); BILIRUBIN TOTAL 0.9 mg/dL (0.2-1.0); BLOOD UREA NITROGEN,BUN 12 mg/dL (7-18); CALCIUM 9.7 mg/dL (8.5-10.1); CARBON DIOXIDE,CO2 24 mmol/L (21-32); CHLORIDE,CL 104 mmol/L (98-107); CREATININE 1.4 mg/dL (0.70-1.30); GLUCOSE RANDOM 195 mg/dL (70-99); INR 1.2 (0.9-1.1); PROTEIN TOTAL,TP 7.5 g/dL (6.4-8.2); PROTHROMBIN TIME 11.6 SEC (8.9-11.5); PTT,PARTIAL THROMBOPLSTIN TIME 26.5 SEC (21.9-33.8); SODIUM,NA 140 mmol/L (136-145)
[2023-12-08 09:45] LABS: ESTIMATED GFR 48 mL/min (>=60)
[2023-12-08] MEDS: Lidocaine 1% 30 ML SDV INJECT ONE (10:00)
== END 2023-12-08 10:38 ==
LOC: VM.ED 09:13
DX: S01.01XA Laceration without foreign body of scalp, initial encounter (principal); I10 Essential (primary) hypertension; E11.9 Type 2 diabetes mellitus without complications; E03.9 Hypothyroidism, unspecified; Z79.899 Other long term (current) drug therapy; Z79.890 Hormone replacement therapy; Z79.84 Long term (current) use of oral hypoglycemic drugs; Z79.51 Long term (current) use of inhaled steroids; Z79.4 Long term (current) use of insulin; Z91.030 Bee allergy status; W18.30XA Fall on same level, unspecified, initial encounter
CPT/HCPCS: 12004; 36415; 70450; 80053; 85025; 85610; 85730; 99285; J3490